=== PATIENT | male | born 1995 | race Caucasian/White ===

== ENCOUNTER 2021-08-20 21:53 | Inpatient (IN) | payer MEDICAID, SELFPAY ==
[2021-08-20 22:01] VITALS: BP 140/90; PULSE 116; RESP 18; TEMP 36.6; O2SAT 99; BMI 25.8
[2021-08-20 22:10] VITALS: BP 140/90; PULSE 116; RESP 18; TEMP 36.6; O2SAT 99; BMI 28.0
--- NOTE | 2021-08-20 22:23 | MHC.CARE ---
CARE team spoke with YVETTE, pt is an inpatient bedsearch.
[2021-08-20] MEDS: LORazepam 1 MG TABLET 2 MG PO (22:32)
[2021-08-20 22:45] LABS: COVID-19 Test Negative (Negative); IDNOW Serial# 55D5AD1C
[2021-08-20 22:46] LABS: Amphetamine Screen Urine Not Detected (Not Detect); Barbiturates, Urine Not Detected (Not Detect); Benzodiazepines Screen Urine Not Detected (Not Detect); Cannabinoid Screen Urine POSITIVE (Not Detect); Cocaine Screen Urine Not Detected (Not Detect); Fentanyl, urine Not Detected (Not Detect); Opiate Screen Urine Not Detected (Not Detect); Phencyclidine Screen Urine Not Detected (Not Detect)
[2021-08-20 22:53] LABS: MANUAL DIFF FLAG NO
[2021-08-20 22:56] LABS: Basophils Percent Auto 0.3 % (0-2); Eosinophils Absolute Auto 0.2 X10*3/uL (0.0-0.4); Eosinophils Percent Auto 2.4 % (0-4); Hematocrit 42.3 % (42-52); Hemoglobin 13.9 g/dl (14.0-18.0); Imm Gran Abs Auto 0.22 X10*3/uL (0.00-0.03); Imm Gran Pct Auto 2.2 % (0.0-0.4); Lymphocytes Absolute Auto 2.3 X10*3/uL (1.2-4.9); Mean Corpuscular HGB Conc 32.9 g/dl (31.0-36.0); Mean Corpuscular Hemoglobin 30.2 pg (27.0-33.0); Monocytes Absolute Auto 1.1 X10*3/uL (0.1-1.2); Monocytes Percent Auto 11.5 % (2-11); Neutrophils Percent Auto 60.6 % (45-73); Platelet Count 195 X10*3/uL (160-400); Red Cell Distribution Width 12.6 % (11.0-16.0); White Blood Count 9.8 X10*3/uL (4.8-10.8)
[2021-08-20] MEDS: diphenhydrAMINE HCL 25 MG TABLET 50 MG PO (23:05)
[2021-08-20 23:06] LABS: Ethanol < 10 mg/dL
[2021-08-20 23:09] LABS: Anion Gap 14 (12-20); Blood Urea Nitrogen 13 mg/dL (9-16); Carbon Dioxide 25 mmol/L (22-29); Chloride 102 mmol/L (96-108); Creatinine Clr Calc Pharmacy 128.8; Estimated Glomerular Filt Rate > 60; Glucose Random 122 mg/dL (60-115); Potassium 3.8 mmol/L (3.3-5.1); Sodium 137 mmol/L (135-145)
[2021-08-20] MEDS: HaloperidoL 5 MG TABLET 10 MG PO (23:10)
--- NOTE | 2021-08-20 23:23 | ED_ITS ---
HPI - Psych General Chief Complaint: Psychiatric Symptoms Stated Complaint: SEC 12 Time Seen by Provider: 08/20/21 22:27 Source: patient Mode of arrival: EMS History of Present Illness HPI Narrative: Patient Section 12 by PD and PH and for being delusional and made homicidal statement please add to cheese him patient is dilution and hypersexual ,oriented at times Related Data Home Medications Medication Instructions Recorded Confirmed divalproex 250 mg tablet,delayed 1 tab PO BID 08/21/21 08/21/21 release divalproex 500 mg tablet,delayed 1,000 mg PO BID 08/21/21 08/21/21 release nicotine 14 mg/24 hr daily 1 patch TOPICAL DAILY 08/21/21 08/21/21 transdermal patch olanzapine 5 mg tablet 1 tab PO BID 08/21/21 08/21/21 risperidone 1 mg tablet 1 tab PO BID 08/21/21 08/21/21 zolpidem 10 mg tablet 1 tab PO BEDTIME PRN 08/21/21 08/21/21 Allergies Allergy/AdvReac Type Severity Reaction Status Date / Time No Known Allergies Allergy Verified 08/20/21 22:18 Review of Systems Review of Systems: Yes all other systems are reviewed and are negative [facility] Social History Social History Patient Tobacco Use Status: Current everyday Tobacco user Smoked in Last 30 Days: Yes Use of substances other than those prescribed or required for medical reasons: Yes Substance Use Type: Marijuana Substance Use Frequency: Daily Any prior treatment program specific to substance use: No Advance Directives: No Physical Exam Vital Signs: Vital Signs: Last Vital Signs Temp 97.9 F 08/20/21 22:10 Pulse 116 H 08/20/21 22:10 Resp 16 08/21/21 00:33 BP 140/90 H 08/20/21 22:10 Pulse Ox 99 08/20/21 22:10 Body Mass Index 28.0 Appearance: Alert. Oriented X3. No acute distress. Eyes: PERRLA, No Nystagmus ENT: Pharynx normal. Oral Mucosa moist Neck: Normal inspection. Neck supple. CVS: Normal heart rate and rhythm. Pulses normal. Respiratory: No respiratory distress. Equal air entry bilateral, no wheezing/rales/rhonchi Abdomen: Soft and nontender. Bowel sounds are present, no mass palpable, no CVA tenderness Skin: Skin warm and dry. Normal skin color. Normal skin turgor. Extremities: No lower extremity edema. No calf tenderness psych: Delusional was loud in between Neuro: Oriented X 3. No motor deficit. No sensory deficit.No cerebellar signs , cranial nerves II-XII intact MDM - Psych MDM Narrative Medical decision making narrative: Patient for inpatient bed search fight psychotic disorder already seen in the field by [facility] Lab Data Result diagrams: 08/20/21 22:45 08/20/21 22:45 Labs: Lab Results 08/20/21 08/20/21 08/20/21 Range/Units 22:23 22:23 22:45 WBC 9.8 (4.8-10.8) X10*3/uL RBC 4.60 (4.60-5.80) X10*6/uL Hgb 13.9 L (14.0-18.0) g/dl Hct 42.3 (42-52) % MCV 92.0 (80-98) fL MCH 30.2 (27.0-33.0) pg MCHC 32.9 (31.0-36.0) g/dl RDW 12.6 (11.0-16.0) % Plt Count 195 (160-400) X10*3/uL MPV 11.0 (9.4-12.4) fL Immature Gran % (Auto) 2.2 H (0.0-0.4) % Neut % (Auto) 60.6 (45-73) % Lymph % (Auto) 23.0 (20-40) % [place] % (Auto) 11.5 H (2-11) % Eos % (Auto) 2.4 (0-4) % Baso % (Auto) 0.3 (0-2) % Lymph # (Auto) 2.3 (1.2-4.9) X10*3/uL [place] # (Auto) 1.1 (0.1-1.2) X10*3/uL Eos # (Auto) 0.2 (0.0-0.4) X10*3/uL Baso # (Auto) 0.0 (0.0-0.2) X10*3/uL Abs Immat Gran (auto) 0.22 H (0.00-0.03) X10*3/uL Absolute Neuts (auto) 6.0 (2.0-8.3) X10*3/uL Absolute Nucleated RBC 0.000 (0.0-0.012) X10*3/uL Nucleated RBC % (auto) 0.0 (0.0-0.2) /100WBC Sodium (135-145) mmol/L Potassium (3.3-5.1) mmol/L Chloride (96-108) mmol/L Carbon Dioxide (22-29) mmol/L Anion Gap (12-20) BUN (9-16) mg/dL Creatinine (0.5-1.4) mg/dL Estim Creat Clear Calc Estimated GFR Random Glucose (60-115) mg/dL Calcium (8.4-10.2) mg/dL Urine Opiates Screen Not Detected (Not Detect) Urine Fentanyl Screen Not Detected (Not Detect) Ur Barbiturates Screen Not Detected (Not Detect) Valproic Acid (50.0-100.0) mcg/mL Ur Phencyclidine Scrn Not Detected (Not Detect) Ur Amphetamines Screen Not Detected (Not Detect) U Benzodiazepines Scrn Not Detected (Not Detect) Urine Cocaine Screen Not Detected (Not Detect) U Marijuana (THC) Screen POSITIVE H (Not Detect) Ethyl Alcohol mg/dL COVID-19 (JOCELIN) Negative (Negative) COVID-19 Clin Com See Note 08/20/21 08/20/21 08/20/21 Range/Units 22:45 22:45 22:45 WBC (4.8-10.8) X10*3/uL RBC (4.60-5.80) X10*6/uL Hgb (14.0-18.0) g/dl Hct (42-52) % MCV (80-98) fL MCH (27.0-33.0) pg MCHC (31.0-36.0) g/dl RDW (11.0-16.0) % Plt Count (160-400) X10*3/uL MPV (9.4-12.4) fL Immature Gran % (Auto) (0.0-0.4) % Neut % (Auto) (45-73) % Lymph % (Auto) (20-40) % [place] % (Auto) (2-11) % Eos % (Auto) (0-4) % Baso % (Auto) (0-2) % Lymph # (Auto) (1.2-4.9) X10*3/uL [place] # (Auto) (0.1-1.2) X10*3/uL Eos # (Auto) (0.0-0.4) X10*3/uL Baso # (Auto) (0.0-0.2) X10*3/uL Abs Immat Gran (auto) (0.00-0.03) X10*3/uL Absolute Neuts (auto) (2.0-8.3) X10*3/uL Absolute Nucleated RBC (0.0-0.012) X10*3/uL Nucleated RBC % (auto) (0.0-0.2) /100WBC Sodium 137 (135-145) mmol/L Potassium 3.8 (3.3-5.1) mmol/L Chloride 102 (96-108) mmol/L Carbon Dioxide 25 (22-29) mmol/L Anion Gap 14 (12-20) BUN 13 (9-16) mg/dL Creatinine 0.97 (0.5-1.4) mg/dL Estim Creat Clear Calc 128.8 Estimated GFR > 60 Random Glucose 122 H (60-115) mg/dL Calcium 9.0 (8.4-10.2) mg/dL Urine Opiates Screen (Not Detect) Urine Fentanyl Screen (Not Detect) Ur Barbiturates Screen (Not Detect) Valproic Acid 77.6 (50.0-100.0) mcg/mL Ur Phencyclidine Scrn (Not Detect) Ur Amphetamines Screen (Not Detect) U Benzodiazepines Scrn (Not Detect) Urine Cocaine Screen (Not Detect) U Marijuana (THC) Screen (Not Detect) Ethyl Alcohol < 10 mg/dL COVID-19 (JOCELIN) (Negative) COVID-19 Clin Com Discharge Plan Discharge Clinical Impression: Psychotic affective disorder, Delusional disorder Prescriptions: No Action nicotine 14 mg/24 hr patch 24 hour 1 patch topical DAILY RF: 0 divalproex 250 mg tablet,delayed release (DR/EC) 1 tab PO BID RF: 0 olanzapine 5 mg tablet 1 tab PO BID RF: 0 divalproex 500 mg tablet,delayed release (DR/EC) 1,000 mg PO BID RF: 0 zolpidem 10 mg tablet 1 tab PO BEDTIME PRN (Reason: insomnia) RF: 0 risperidone 1 mg tablet 1 tab PO BID RF: 0
[2021-08-20] MEDS: LORazepam 2 MG/ML VIAL IM (23:29)
[2021-08-20 23:30] VITALS: RESP 20
[2021-08-20] MEDS: Haloperidol Lactate 5 MG/ML VIAL IM (23:30)
[2021-08-20 23:45] VITALS: RESP 20
[2021-08-21] VITALS (8 sets, daily range): BP systolic 139–154; BP diastolic 61–81; PULSE 82–95; RESP 16–18; TEMP 36.7–37.1; O2SAT 98–99
--- NOTE | 2021-08-21 | ECG_ITS ---
Test Reason : CLEARANCE Blood Pressure : / mmHG Vent. Rate : 084 BPM Atrial Rate : 084 BPM P-R Int : 148 ms QRS Dur : 092 ms QT Int : 360 ms P-R-T Axes : 063 090 040 degrees QTc Int : 425 ms Normal sinus rhythm Rightward axis Borderline ECG When compared with ECG of 19-JUN-2008 10:56, PREVIOUS ECG IS PRESENT No significant change was found Referred By: Connie Livingston Electronically Signed By:LORENA WALLER
--- NOTE | 2021-08-21 00:14 | MHC.CARE ---
T/W contacted [facility] to obtain additional information on pt. pt was d/c last week from [facility] (7 day stay) and re-presented today to [facility] for crisis. pt was assessed by [facility] ED psychiatrist and d/c today to a cousins house in [place]. Pt's cousin then contacted 911 due to pt exhibiting same behaviors and brought to this ED. [facility] faxed over all documentation from last admission.
[2021-08-21 01:10] LABS: Valproate 77.6 mcg/mL (50.0-100.0)
--- NOTE | 2021-08-21 05:32 | ED.PSYCH ---
HPI - Psych General Chief Complaint: Psychiatric Symptoms Stated Complaint: SEC 12 Time Seen by Provider: 08/20/21 22:27 Mode of arrival: EMS Limitations: altered mental status History of Present Illness HPI Narrative: 25-year-old male who is brought to the emergency department by EMS and police for evaluation of acute psychosis. Information was obtained from [facility] records. The patient was treated at [facility] from 08/15/2021 until 08/20/2021 on the [facility] psychiatric service for unspecified schizophrenia spectrum and other psychotic disorder, cannabis use and agitated psychosis with sissy. The patient was being treated with multiple medications at [facility] with reported improvement of his symptoms. Our ED nurse was able to determine that the patient's mother did not want the patient discharged from the psychiatric unit however the patient was able to convince his cousin and grandmother that he had improved and they help the patient sign out of the psychiatric unit. The patient was staying with his grandmother and the patient's mother was unaware of this situation. The patient's 's mother believe that the patient's signed out or eloped from [facility]. The mother called the police and the police went to the grandmother's house. the patient was evaluated by [facility] and he was placed on a Section 12 for acute delusions and homicidal ideation. The patient was then transported to our facility. On presentation the patient appears to be agitated, he would was making lab incomprehensible, screaming noises. The patient was therefore medicated with Ativan 2 mg orally with no effect. He was then treated with Haldol 10 mg orally with Benadryl orally. Again this had no effect, therefore he was treated with Haldol 5 mg IM and Ativan 2 mg IM and the patient's agitation resolved. Related Data Home Medications Medication Instructions Recorded Confirmed divalproex 250 mg tablet,delayed 1 tab PO BID 08/21/21 08/21/21 release divalproex 500 mg tablet,delayed 1,000 mg PO BID 08/21/21 08/21/21 release nicotine 14 mg/24 hr daily 1 patch TOPICAL DAILY 08/21/21 08/21/21 transdermal patch olanzapine 5 mg tablet 1 tab PO BID 08/21/21 08/21/21 risperidone 1 mg tablet 1 tab PO BID 08/21/21 08/21/21 zolpidem 10 mg tablet 1 tab PO BEDTIME PRN 08/21/21 08/21/21 Allergies Allergy/AdvReac Type Severity Reaction Status Date / Time No Known Allergies Allergy Verified 08/20/21 22:18 Review of Systems Review of Systems: Yes all other systems are reviewed and are negative [facility] Past Medical History [facility] Narrative: Past medical history: None. Past surgical history: Laparoscopic removal of foreign body of the right calf. Social history: Obtain from the [facility] records. The patient has a history of using cocaine once a week and smoking marijuana on a daily basis. He denied tobacco and alcohol use. Social History Social History Patient Tobacco Use Status: Current everyday Tobacco user Smoked in Last 30 Days: Yes Use of substances other than those prescribed or required for medical reasons: Yes Substance Use Type: Marijuana Substance Use Frequency: Daily Any prior treatment program specific to substance use: No Advance Directives: No Physical Exam Vital Signs: Vital Signs: Last Vital Signs Temp 97.9 F 08/20/21 22:10 Pulse 116 H 08/20/21 22:10 Resp 16 08/21/21 00:33 BP 140/90 H 08/20/21 22:10 Pulse Ox 99 08/20/21 22:10 Body Mass Index 28.0 Const: Other: Agitated, young male patient, patient is accompanied by multiple police officers and 2 paramedics. Patient is standing in the room and refuses to answer questions, he will randomly scream and make loud noises. He appears to be agitated and is not redirectable. HENMT: Head: Yes normal to inspection, Yes normocephalic and Yes atraumatic Ears: external ears normal General nose exam: Normal external nose present Face and sinus: Yes normal facial exam Mouth: Normal oral and palatal mucosa present Throat: Yes posterior oropharynx normal Eyes: General: appearance normal, both eyes and all related structures Pupils: Equal, round and reactive pupils present Neck: Neck: Yes normal visual inspection, Yes no lymphadenopathy, Yes trachea midline and Yes supple Chest: Chest palpation & inspection: normal inspection of the chest and normal palpation of entire chest wall Resp: Effort & Inspection: normal respiratory effort and able to speak in complete sentences Auscultation: clear to auscultation bilaterally Cardio: Rate: regular rate Rhythm: regular rhythm Heart sounds: S1 normal heart sound present, S2 normal heart sound present and no murmurs GI: Inspection: Yes normal to inspection Palpation (GI): Soft to palpation, nontender and no guarding Auscultation: normal bowel sounds : General: Yes no CVA tenderness Back/Spine/Pelvis: Back: no CVA tenderness Skin: General skin exam: no rashes or lesions noted Neuro: Cranial nerves: Yes CN's II-XII intact bilaterally and Yes Equal, round and reactive pupils present Motor exam (neuro): 5/5 motor strength present throughout Extrem: General: Yes normal to inspection Psych: Other: The patient is agitated Thought content: Normal thought content present Course Course Course Narrative: 25-year-old male who was recently admitted to [facility] on the psychiatric service from 08/15/2021 to 08/20/2021. The patient was diagnosed with unspecific schizophrenia spectrum and other psychotic disorder with rule out substance induced and cannabis use disorder. The patient's mother was concerned that the patient had eloped or was discharged inappropriately from [facility] and contacted the police. The patient was evaluated as an outpatient by [facility] and the patient was placed on a Section 12 for acute psychosis delusions and homicidal ideation. The patient was acutely agitated and presentation and required treatment with Ativan, Benadryl and Haldol to calm him down. Laboratory evaluation revealed a normal CBC and CMP. Urine tox screen was positive for marijuana. Alcohol level was below detectable limits. The patient will be kept on a Section 12 and [facility] will do a bed search on the patient. 0550: Start physician observation: The patient will require physician observation for agitation and psychosis while he is undergoing a Section 12 bed search by [facility]. Patient's outpatient medication regimen was ordered. patient is resting comfortably, his neurologic exam is nonfocal, lungs were clear heart regular rate rhythm, abdomen soft nontender, extremities were normal. MDM - Psych Lab Data Result diagrams: 08/20/21 22:45 08/20/21 22:45 Labs: Lab Results 08/20/21 08/20/21 08/20/21 Range/Units 22:23 22:23 22:45 WBC 9.8 (4.8-10.8) X10*3/uL RBC 4.60 (4.60-5.80) X10*6/uL Hgb 13.9 L (14.0-18.0) g/dl Hct 42.3 (42-52) % MCV 92.0 (80-98) fL MCH 30.2 (27.0-33.0) pg MCHC 32.9 (31.0-36.0) g/dl RDW 12.6 (11.0-16.0) % Plt Count 195 (160-400) X10*3/uL MPV 11.0 (9.4-12.4) fL Immature Gran % (Auto) 2.2 H (0.0-0.4) % Neut % (Auto) 60.6 (45-73) % Lymph % (Auto) 23.0 (20-40) % [place] % (Auto) 11.5 H (2-11) % Eos % (Auto) 2.4 (0-4) % Baso % (Auto) 0.3 (0-2) % Lymph # (Auto) 2.3 (1.2-4.9) X10*3/uL [place] # (Auto) 1.1 (0.1-1.2) X10*3/uL Eos # (Auto) 0.2 (0.0-0.4) X10*3/uL Baso # (Auto) 0.0 (0.0-0.2) X10*3/uL Abs Immat Gran (auto) 0.22 H (0.00-0.03) X10*3/uL Absolute Neuts (auto) 6.0 (2.0-8.3) X10*3/uL Absolute Nucleated RBC 0.000 (0.0-0.012) X10*3/uL Nucleated RBC % (auto) 0.0 (0.0-0.2) /100WBC Sodium (135-145) mmol/L Potassium (3.3-5.1) mmol/L Chloride (96-108) mmol/L Carbon Dioxide (22-29) mmol/L Anion Gap (12-20) BUN (9-16) mg/dL Creatinine (0.5-1.4) mg/dL Estim Creat Clear Calc Estimated GFR Random Glucose (60-115) mg/dL Calcium (8.4-10.2) mg/dL Urine Opiates Screen Not Detected (Not Detect) Urine Fentanyl Screen Not Detected (Not Detect) Ur Barbiturates Screen Not Detected (Not Detect) Valproic Acid (50.0-100.0) mcg/mL Ur Phencyclidine Scrn Not Detected (Not Detect) Ur Amphetamines Screen Not Detected (Not Detect) U Benzodiazepines Scrn Not Detected (Not Detect) Urine Cocaine Screen Not Detected (Not Detect) U Marijuana (THC) Screen POSITIVE H (Not Detect) Ethyl Alcohol mg/dL COVID-19 (JOCELIN) Negative (Negative) COVID-19 Clin Com See Note 08/20/21 08/20/21 08/20/21 Range/Units 22:45 22:45 22:45 WBC (4.8-10.8) X10*3/uL RBC (4.60-5.80) X10*6/uL Hgb (14.0-18.0) g/dl Hct (42-52) % MCV (80-98) fL MCH (27.0-33.0) pg MCHC (31.0-36.0) g/dl RDW (11.0-16.0) % Plt Count (160-400) X10*3/uL MPV (9.4-12.4) fL Immature Gran % (Auto) (0.0-0.4) % Neut % (Auto) (45-73) % Lymph % (Auto) (20-40) % [place] % (Auto) (2-11) % Eos % (Auto) (0-4) % Baso % (Auto) (0-2) % Lymph # (Auto) (1.2-4.9) X10*3/uL [place] # (Auto) (0.1-1.2) X10*3/uL Eos # (Auto) (0.0-0.4) X10*3/uL Baso # (Auto) (0.0-0.2) X10*3/uL Abs Immat Gran (auto) (0.00-0.03) X10*3/uL Absolute Neuts (auto) (2.0-8.3) X10*3/uL Absolute Nucleated RBC (0.0-0.012) X10*3/uL Nucleated RBC % (auto) (0.0-0.2) /100WBC Sodium 137 (135-145) mmol/L Potassium 3.8 (3.3-5.1) mmol/L Chloride 102 (96-108) mmol/L Carbon Dioxide 25 (22-29) mmol/L Anion Gap 14 (12-20) BUN 13 (9-16) mg/dL Creatinine 0.97 (0.5-1.4) mg/dL Estim Creat Clear Calc 128.8 Estimated GFR > 60 Random Glucose 122 H (60-115) mg/dL Calcium 9.0 (8.4-10.2) mg/dL Urine Opiates Screen (Not Detect) Urine Fentanyl Screen (Not Detect) Ur Barbiturates Screen (Not Detect) Valproic Acid 77.6 (50.0-100.0) mcg/mL Ur Phencyclidine Scrn (Not Detect) Ur Amphetamines Screen (Not Detect) U Benzodiazepines Scrn (Not Detect) Urine Cocaine Screen (Not Detect) U Marijuana (THC) Screen (Not Detect) Ethyl Alcohol < 10 mg/dL COVID-19 (JOCELIN) (Negative) COVID-19 Clin Com Discharge Plan Discharge Clinical Impression: Psychotic affective disorder, Delusional disorder Prescriptions: No Action nicotine 14 mg/24 hr patch 24 hour 1 patch topical DAILY RF: 0 divalproex 250 mg tablet,delayed release (DR/EC) 1 tab PO BID RF: 0 olanzapine 5 mg tablet 1 tab PO BID RF: 0 divalproex 500 mg tablet,delayed release (DR/EC) 1,000 mg PO BID RF: 0 zolpidem 10 mg tablet 1 tab PO BEDTIME PRN (Reason: insomnia) RF: 0 risperidone 1 mg tablet 1 tab PO BID RF: 0
--- NOTE | 2021-08-21 06:26 | PC.NURSE ---
Patient is currently in bed appears sleeping, no distress observed/reported at this time, patient's behavior is manic, delusional, loud, disruptive, and hyper-sexual. Patient was chemically restraint at 2300 with Haldol 5 mg IM and Ativan 2 mg IM, compliant with medication, med rec completed and approved. Patient got discharge from [facility] yesterday against his mother's request. VSS, appetite good, patient was seen by [facility] in the community and patient's disposition is section 12 inpatient bed search, will continue to monitor.
[2021-08-21] MEDS: Divalproex Sodium 250 MG TABLET.DR PO ×2 (07:22→20:06)
[2021-08-21] MEDS: OLANZapine 5 MG TABLET PO ×2 (07:22→10:42)
[2021-08-21] MEDS: Divalproex Sodium 500 MG TABLET.DR 1000 MG PO ×2 (07:23→20:06)
[2021-08-21] MEDS: risperiDONE 1 MG TABLET PO (07:23)
[2021-08-21] MEDS: hydrOXYzine HCL 50 MG TABLET PO (10:10)
[2021-08-21] MEDS: Nicotine Polacrilex 2 MG GUM BUCCAL (10:10)
--- NOTE | 2021-08-21 10:33 | P.CNPS_ITS ---
History of Present Illness Date of Service: 08/21/21 Chief Complaint: SEC 12 Reason for Consult: med review for sissy/psychosis HPI Narrative: danita Hoffmann 08/21 Progress Note: 25-year-old male who is brought to the emergency department by EMS and police for evaluation of acute psychosis.? Information was obtained from [facility] records.? The patient was treated at [facility] from 08/15/2021 until 08/20/2021 on the [facility] psychiatric service for unspecified schizophrenia spectrum and other psychotic disorder, cannabis use and agitated psychosis with sissy.? The patient was being treated with multiple medications at [facility] with reported improvement of his symptoms.? Our? ED nurse was able to determine that the patient's mother did not want the patient discharged from the psychiatric unit however the patient was able to convince his cousin and grandmother that he had improved and they help the patient sign out of the psychiatric unit.? The patient was staying with his grandmother and the patient's mother was unaware of this situation.? The patient's? 's mother believe that the patient's signed out or eloped from [facility].? The mother called the police and the police went to the grandmother's house. the patient was evaluated by [facility] and he was placed on a Section 12 for acute delusions and homicidal ideation. ? The patient was then transported to our facility.? On presentation the patient appears to be agitated, he would was making lab incomprehensible, screaming noises.? The patient was therefore medicated with Ativan 2 mg orally with no effect.? He was then treated with Haldol 10 mg orally with Benadryl orally.? Again this had no effect, therefore he was treated with Haldol 5 mg IM and Ativan 2 mg IM and the patient's agitation resolved. on interview with psych MD, pt was a bit tense and asking for discharge. denied having ever threatened to kill anyone. stated he wanted to get home (which he later acknowledged was his grandmother's house) and buy a motorcycle so he could enjoy the weather before winter comes. he reported he had saved up enough money for the motorcycle. he offered to pay MD money if MD could find him his own apartment. he seemed to acknowledge he has mental illness and he may be in the midst of a manic episode currently. Diagnostics Vital Signs (24Hr): Vital Signs - 24 hr 08/20/21 22:01 08/20/21 22:10 08/20/21 23:30 Temperature 97.9 F 97.9 F Pulse Rate 116 H 116 H Respiratory Rate 18 18 20 Blood Pressure 140/90 H 140/90 H Pulse Oximetry 99 99 08/20/21 23:45 08/21/21 00:00 08/21/21 00:19 Temperature Pulse Rate Respiratory Rate 20 18 18 Blood Pressure Pulse Oximetry 08/21/21 00:20 08/21/21 00:30 08/21/21 00:33 Temperature Pulse Rate Respiratory Rate 18 16 16 Blood Pressure Pulse Oximetry 08/21/21 10:01 Temperature 98.8 F Pulse Rate 95 Respiratory Rate Blood Pressure 141/81 H Pulse Oximetry 99 Body Mass Index 28.0 Labs Results: 08/20/21 22:45 08/20/21 22:45 Labs: Laboratory Results - last 48 hr 08/20/21 08/20/21 08/20/21 22:23 22:23 22:45 WBC 9.8 RBC 4.60 Hgb 13.9 L Hct 42.3 MCV 92.0 MCH 30.2 MCHC 32.9 RDW 12.6 Plt Count 195 MPV 11.0 Immature Gran % (Auto) 2.2 H Neut % (Auto) 60.6 Lymph % (Auto) 23.0 [place] % (Auto) 11.5 H Eos % (Auto) 2.4 Baso % (Auto) 0.3 Lymph # (Auto) 2.3 [place] # (Auto) 1.1 Eos # (Auto) 0.2 Baso # (Auto) 0.0 Abs Immat Gran (auto) 0.22 H Absolute Neuts (auto) 6.0 Absolute Nucleated RBC 0.000 Nucleated RBC % (auto) 0.0 Sodium Potassium Chloride Carbon Dioxide Anion Gap BUN Creatinine Estim Creat Clear Calc Estimated GFR Random Glucose Calcium Urine Opiates Screen Not Detected Urine Fentanyl Screen Not Detected Ur Barbiturates Screen Not Detected Valproic Acid Ur Phencyclidine Scrn Not Detected Ur Amphetamines Screen Not Detected U Benzodiazepines Scrn Not Detected Urine Cocaine Screen Not Detected U Marijuana (THC) Screen POSITIVE H Ethyl Alcohol COVID-19 (JOCELIN) Negative COVID-19 Clin Com See Note 1008/20/21 08/20/21 22:45 22:45 22:45 WBC RBC Hgb Hct MCV MCH MCHC RDW Plt Count MPV Immature Gran % (Auto) Neut % (Auto) Lymph % (Auto) [place] % (Auto) Eos % (Auto) Baso % (Auto) Lymph # (Auto) [place] # (Auto) Eos # (Auto) Baso # (Auto) Abs Immat Gran (auto) Absolute Neuts (auto) Absolute Nucleated RBC Nucleated RBC % (auto) Sodium 137 Potassium 3.8 Chloride 102 Carbon Dioxide 25 Anion Gap 14 BUN 13 Creatinine 0.97 Estim Creat Clear Calc 128.8 Estimated GFR > 60 Random Glucose 122 H Calcium 9.0 Urine Opiates Screen Urine Fentanyl Screen Ur Barbiturates Screen Valproic Acid 77.6 Ur Phencyclidine Scrn Ur Amphetamines Screen U Benzodiazepines Scrn Urine Cocaine Screen U Marijuana (THC) Screen Ethyl Alcohol < 10 COVID-19 (JOCELIN) COVID-19 Clin Com Mental Status Exam Mental Status Exam Narrative: dressed in scrubs, adequately groomed. facial, neck, arm tattoos. cooperative, no PMA/PMR. speech incr in amount, nml rate, loudness, tone, latency. thoughts grossly linear but not particularly logical. affect hyper- intense, non-labile, constricted. no SI/AVH expressed. denied HI. Medications Medications Current Medications Divalproex Sodium (Divalproex Sodium 500 Mg Tablet.) 1,000 mg PO BID [facility] Last Admin: 08/21/21 07:23 Dose: 1,000 mg Documented by: Divalproex Sodium (Divalproex Sodium 250 Mg Tablet.) 250 mg PO BID [facility] Last Admin: 08/21/21 07:22 Dose: 250 mg Documented by: Lorazepam (Lorazepam 1 Mg Tablet) 1 mg PO TID [facility] Nicotine (Nicotine 14 Mg Patch.Td24) 14 mg TRANSDERMA DAILY [facility] Last Admin: 08/21/21 10:10 Dose: Not Given Documented by: Olanzapine (Olanzapine 10 Mg Tablet) 10 mg PO BID [facility] Olanzapine (Olanzapine 5 Mg Tablet) 5 mg PO ONCE ONE Stop: 08/21/21 10:32 Zolpidem Tartrate (Zolpidem Tartrate 5 Mg Tablet) 10 mg PO BEDTIME PRN PRN Reason: insomnia Allergies Allergies Allergy/AdvReac Type Severity Reaction Status Date / Time No Known Allergies Allergy Verified 08/20/21 22:18 Assessment & Plan Assessment & Plan (1) Psychotic affective disorder: Status: Acute Code(s): F39 - Unspecified mood [affective] disorder Assessment and Plan: increase zyprexa from 5 BID to 10 BID. add 5 mg now dose. D/C risperidone 1 mg BID as redundant with zyprexa. start ativan 1 TID for sissy/mood. continue VPA at current dosing; level 77 at admission. recheck after 5 days of verified ingestion. admit to inpatient unit for stabilization. Greater than 50% of the session was spent on counseling and/or coordination of care
[2021-08-21] MEDS: LORazepam 1 MG TABLET PO ×3 (10:42→20:06)
[2021-08-21] MEDS: Ondansetron ODT 4 MG TAB.RAPDIS TRANSLINGU (14:08)
--- NOTE | 2021-08-21 19:24 | P.PNPSI_ITS ---
Subjective Subjective Date of Service: 08/21/21 Reason For Visit: sissy Diagnostics Vital Signs (24Hr): Vital Signs - 24 hr 08/20/21 22:01 08/20/21 22:10 08/20/21 23:30 Temperature 97.9 F 97.9 F Pulse Rate 116 H 116 H Respiratory Rate 18 18 20 Blood Pressure 140/90 H 140/90 H Pulse Oximetry 99 99 08/20/21 23:45 08/21/21 00:00 08/21/21 00:19 Temperature Pulse Rate Respiratory Rate 20 18 18 Blood Pressure Pulse Oximetry 08/21/21 00:20 08/21/21 00:30 08/21/21 00:33 Temperature Pulse Rate Respiratory Rate 18 16 16 Blood Pressure Pulse Oximetry 08/21/21 10:01 08/21/21 17:37 Temperature 98.8 F 98.1 F Pulse Rate 95 82 Respiratory Rate Blood Pressure 141/81 H 154/61 H Pulse Oximetry 99 98 Body Mass Index 28.0 Labs Results: 08/20/21 22:45 08/20/21 22:45 Labs: Laboratory Results - last 48 hr 08/20/21 08/20/21 08/20/21 22:23 22:23 22:45 WBC 9.8 RBC 4.60 Hgb 13.9 L Hct 42.3 MCV 92.0 MCH 30.2 MCHC 32.9 RDW 12.6 Plt Count 195 MPV 11.0 Immature Gran % (Auto) 2.2 H Neut % (Auto) 60.6 Lymph % (Auto) 23.0 [place] % (Auto) 11.5 H Eos % (Auto) 2.4 Baso % (Auto) 0.3 Lymph # (Auto) 2.3 [place] # (Auto) 1.1 Eos # (Auto) 0.2 Baso # (Auto) 0.0 Abs Immat Gran (auto) 0.22 H Absolute Neuts (auto) 6.0 Absolute Nucleated RBC 0.000 Nucleated RBC % (auto) 0.0 Sodium Potassium Chloride Carbon Dioxide Anion Gap BUN Creatinine Estim Creat Clear Calc Estimated GFR Random Glucose Calcium Urine Opiates Screen Not Detected Urine Fentanyl Screen Not Detected Ur Barbiturates Screen Not Detected Valproic Acid Ur Phencyclidine Scrn Not Detected Ur Amphetamines Screen Not Detected U Benzodiazepines Scrn Not Detected Urine Cocaine Screen Not Detected U Marijuana (THC) Screen POSITIVE H Ethyl Alcohol COVID-19 (JOCELIN) Negative COVID-19 Clin Com See Note 08/20/21 08/20/21 08/20/21 22:45 22:45 22:45 WBC RBC Hgb Hct MCV MCH MCHC RDW Plt Count MPV Immature Gran % (Auto) Neut % (Auto) Lymph % (Auto) [place] % (Auto) Eos % (Auto) Baso % (Auto) Lymph # (Auto) [place] # (Auto) Eos # (Auto) Baso # (Auto) Abs Immat Gran (auto) Absolute Neuts (auto) Absolute Nucleated RBC Nucleated RBC % (auto) Sodium 137 Potassium 3.8 Chloride 102 Carbon Dioxide 25 Anion Gap 14 BUN 13 Creatinine 0.97 Estim Creat Clear Calc 128.8 Estimated GFR > 60 Random Glucose 122 H Calcium 9.0 Urine Opiates Screen Urine Fentanyl Screen Ur Barbiturates Screen Valproic Acid 77.6 Ur Phencyclidine Scrn Ur Amphetamines Screen U Benzodiazepines Scrn Urine Cocaine Screen U Marijuana (THC) Screen Ethyl Alcohol < 10 COVID-19 (JOCELIN) COVID-19 Clin Com Medications Medications Current Medications Acetaminophen (Acetaminophen 325 Mg Tablet) 650 mg PO Q6H PRN PRN Reason: Headache/Pain Mild Scale (1-3) Al Hydroxide/Mg Hydroxide (Magnesium Hydrox/Alum Hydrox 30 Ml Oral.Susp) 30 ml PO Q6H PRN PRN Reason: Heartburn/Nausea Divalproex Sodium (Divalproex Sodium 500 Mg Tablet.) 1,000 mg PO BID [facility] Last Admin: 08/21/21 07:23 Dose: 1,000 mg Documented by: Divalproex Sodium (Divalproex Sodium 250 Mg Tablet.) 250 mg PO BID [facility] Last Admin: 08/21/21 07:22 Dose: 250 mg Documented by: Hydroxyzine HCl (Hydroxyzine Hcl 25 Mg Tablet) 25 mg PO BEDTIME PRN PRN Reason: Anxiety Lorazepam (Lorazepam 1 Mg Tablet) 1 mg PO TID [facility] Last Admin: 08/21/21 16:38 Dose: 1 mg Documented by: Magnesium Hydroxide (Milk Of Magnesia 30 Ml Oral.Susp) 30 ml PO DAILY PRN PRN Reason: Constipation Nicotine (Nicotine 14 Mg Patch.Td24) 14 mg TRANSDERMA DAILY [facility] Last Admin: 08/21/21 10:10 Dose: Not Given Documented by: Olanzapine (Olanzapine 10 Mg Tablet) 10 mg PO BID [facility] Trazodone HCl (Trazodone Hcl 50 Mg Tablet) 50 mg PO BEDTIME PRN PRN Reason: Insomnia Allergies Allergies Allergy/AdvReac Type Severity Reaction Status Date / Time No Known Allergies Allergy Verified 08/20/21 22:18 Assessment & Plan Assessment & Plan (1) Psychotic affective disorder: Status: Acute Code(s): F39 - Unspecified mood [affective] disorder Assessment and Plan: increase zyprexa from 5 BID to 10 BID. add 5 mg now dose. D/C risperidone 1 mg BID as redundant with zyprexa. start ativan 1 TID for sissy/mood. continue VPA at current dosing; level 77 at admission. recheck after 5 days of verified ingestion. admit to inpatient unit for stabilization. Greater than 50% of the session was spent on counseling and/or coordination of care
[2021-08-21] MEDS: Magnesium Hydrox/Alum Hydrox 30 ML ORAL.SUSP PO (19:28)
[2021-08-21] MEDS: hydrOXYzine HCL 25 MG TABLET PO (20:06)
[2021-08-21] MEDS: OLANZapine 10 MG TABLET PO (20:07)
--- NOTE | 2021-08-21 20:37 | PC.ADMIT ---
James Terry is a 25 year old single male admitted for sissy to M3 from [facility] ED on a CV after discharge from [facility] yesterday. He signed a 3 day notice on arrival to the unit. Mr Terry demonstrates no insight into the reasons for this and his other recent hospitalization. He states, I am here for racketeering and later, I am irritated that I am here because there is no reason for it. I am not sick. Mr Terry denies auditory or visual hallucinations, He denies ideation, plan or intent to harm self or others. He denies having ever harmed self or others. He appears to be a poor historian because the information he provides conflicts with that of [facility] discharge paperwork and with crisis evaluation. He is calm on admission, hypersexually inappropriate in interactions with this nurse and other staff. Speech is inarticulate and answers to assessment questions are inconsistent, vague and often off topic. He denies depression and anxiety. He reports sleep and appetite are good. He denies physical complaint.
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
[2021-08-22 06:00] VITALS: BP 147/75; PULSE 112; RESP 16; TEMP 36.2; O2SAT 99
[2021-08-22] MEDS: OLANZapine 10 MG TABLET PO ×2 (08:18→11:12)
[2021-08-22] MEDS: Divalproex Sodium 250 MG TABLET.DR PO (08:18)
[2021-08-22] MEDS: LORazepam 1 MG TABLET PO ×3 (08:19→20:30)
[2021-08-22] MEDS: Divalproex Sodium 500 MG TABLET.DR 1000 MG PO (08:19)
[2021-08-22] MEDS: hydrOXYzine HCL 25 MG TABLET PO (09:23)
[2021-08-22] MEDS: Nicotine Polacrilex 2 MG GUM BUCCAL ×4 (09:23→18:04)
[2021-08-22] MEDS: HaloperidoL 5 MG TABLET PO ×2 (11:12→14:58)
[2021-08-22] MEDS: chlorproMAZINE HCl 100 MG TABLET PO (13:25)
[2021-08-22] MEDS: LORazepam 1 MG TABLET 2 MG PO (13:25)
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
--- NOTE | 2021-08-22 15:21 | PM.EVENT ---
Event Note Date of Service: 08/22/21 Event Note: Asked to see the patient for L ear ? pain. S Pt seen and examined on M3. He DENIES any ear pain to me. He wants me to clean his ear out. He denies any hearing loss or pain. O Ear - L ear + for moderate cerumen, unable to visualize his tympanic membrane; R ear - minimal wax, able to visualize tympanic membranes -- without erythema or signs of effusion A/P 25 yo with probable moderate cerumen in the L Can give trial of Debrox for a few days (order placed)
[2021-08-22 18:00] VITALS: BP 112/58; PULSE 101; RESP 16; TEMP 36.7; O2SAT 98
[2021-08-22] MEDS: OLANZapine 10 MG TABLET 20 MG PO (20:30)
[2021-08-22] MEDS: Divalproex Sodium 500 MG TABLET.DR 2000 MG PO (20:30)
[2021-08-22] MEDS: Carbamide Peroxide 6.5% Otic 15 ML DRPBTL 5 DROP EAR-LEFT (21:07)
[2021-08-23 06:00] VITALS: BP 126/68; PULSE 88; RESP 16; TEMP 36.4; O2SAT 98
[2021-08-23 07:46] LABS: Hematocrit 40.6 % (42-52); Hemoglobin 13.1 g/dl (14.0-18.0); Mean Corpuscular HGB Conc 32.3 g/dl (31.0-36.0); Mean Corpuscular Hemoglobin 30.3 pg (27.0-33.0); Mean Corpuscular Volume 93.8 fL (80-98); Mean Platelet Volume 10.4 fL (9.4-12.4); Platelet Count 200 X10*3/uL (160-400); Red Blood Count 4.33 X10*6/uL (4.60-5.80); Red Cell Distribution Width 13.1 % (11.0-16.0); White Blood Count 7.2 X10*3/uL (4.8-10.8)
[2021-08-23] MEDS: Divalproex Sodium 500 MG TABLET.DR 1000 MG PO (08:10)
[2021-08-23] MEDS: OLANZapine 10 MG TABLET 20 MG PO ×2 (08:10→20:13)
[2021-08-23] MEDS: Nicotine Polacrilex 2 MG GUM BUCCAL ×3 (08:11→18:01)
[2021-08-23] MEDS: HaloperidoL 5 MG TABLET PO ×4 (08:11→20:10)
[2021-08-23] MEDS: LORazepam 1 MG TABLET PO ×3 (08:11→20:13)
[2021-08-23 08:21] LABS: Band Neutrophils Percent 1 % (3-5); Eosinophils Absolute Manual 0.5 X10*3/UL (0.0-0.8); Eosinophils Percent Manual 7 % (0-4); Lymphocytes Absolute Manual 1.8 X10*3/uL (0.6-4.8); Lymphocytes Percent Manual 25 % (20-40); Metamyelocytes Absolute 0.1 X10*3/uL; Metamyelocytes Percent 2 %; Monocytes Absolute Manual 0.2 X10*3/uL (0.0-1.2); Monocytes Percent Manual 3 % (2-11); Neutrophils Absolute Manual 4.5 X10*3/uL (2.2-7.9); Neutrophils Percent Manual 62 % (45-73)
[2021-08-23 08:22] LABS: Alanine Aminotransferase 110 U/L (0-40); Albumin Level 3.5 g/dL (3.5-5.0); Alkaline Phosphatase 57 U/L (39-117); Anion Gap 13 (12-20); Aspartate Amino Transferase 67 U/L (5-37); Bilirubin Total 0.2 mg/dL (0.0-1.0); Blood Urea Nitrogen 13 mg/dL (9-16); Calcium 8.3 mg/dL (8.4-10.2); Carbon Dioxide 31 mmol/L (22-29); Chloride 102 mmol/L (96-108); Creatinine Clr Calc Pharmacy 162.2; Estimated Glomerular Filt Rate > 60; Glucose Random 85 mg/dL (60-115); Hypochromasia 1+ (5-14) /OIF; Platelet Estimate NORMAL (NORMAL); Platelet Morphology Comment NORMAL; Polychromasia 1+ (0-2) /OIF; Potassium 4.5 mmol/L (3.3-5.1); RBC Morphology NOTED; Sodium 141 mmol/L (135-145); Total Protein 5.8 g/dL (6.5-8.0)
[2021-08-23] MEDS: Carbamide Peroxide 6.5% Otic 15 ML DRPBTL 5 DROP EAR-LEFT (09:40)
[2021-08-23] MEDS: LORazepam 1 MG TABLET 2 MG PO (11:49)
[2021-08-23] MEDS: OLANZapine 10 MG TABLET PO (11:49)
[2021-08-23 18:00] VITALS: BP 126/69; PULSE 96; RESP 6; TEMP 36.2; O2SAT 97
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
[2021-08-23] MEDS: hydrOXYzine HCL 25 MG TABLET PO (20:13)
[2021-08-23] MEDS: Divalproex Sodium 500 MG TABLET.DR 2000 MG PO (20:14)
[2021-08-24 06:00] VITALS: BP 127/63; PULSE 82; RESP 16; TEMP 36.2; O2SAT 98
[2021-08-24] MEDS: Nicotine Polacrilex 2 MG GUM BUCCAL ×5 (07:47→19:37)
[2021-08-24] MEDS: OLANZapine 10 MG TABLET 20 MG PO ×2 (08:51→20:04)
[2021-08-24] MEDS: HaloperidoL 5 MG TABLET PO ×2 (08:52→14:56)
[2021-08-24] MEDS: LORazepam 1 MG TABLET PO ×3 (08:52→20:04)
[2021-08-24] MEDS: Divalproex Sodium 500 MG TABLET.DR 1000 MG PO (08:52)
[2021-08-24] MEDS: Carbamide Peroxide 6.5% Otic 15 ML DRPBTL 5 DROP EAR-LEFT (08:54)
--- NOTE | 2021-08-24 10:40 | P.PNPSI_ITS ---
Subjective Subjective Date of Service: 08/24/21 Reason For Visit: sissy Interim History: James appears calmer today, less agitated and angry however continues with confusion and focus on discharge as his three day notice expires 08/26/21. He has required several prn medications over the past day and it appears he has a misunderstanding regarding his discharge from [facility] and admission on the same day to [facility], telling this medical technical writer that [facility] made an error and he was just supposed to go home, not come for another admission. Medication Compliance: Yes Side effects from medications: No Review of Systems Acute medical concerns: No Medical Review of Systems: unchanged Review of Systems Reports behavioral changes Psychiatric: Reports anxiety, Reports behavioral changes, Reports difficulty concentrating, Reports auditory hallucinations, Reports irritability, Reports mood swings, Reports paranoia and Reports homicidal ideation Mental Status Exam Mental Status Exam Patient Appearance: Appropriate Patient Orientation: Person, Place and Situation Level of Consciousness: Alert Patient Behavior: Guarded, Talkative, Posturing, Suspicious, Hypersexual, Aggressive, Restless, Belligerent, Verbal Threats, Anxious, Fearful, Resistive to Care, Avoidant, Distractible, Good Eye Contact and Impulsive Mood Description: Labile Affect Description: Labile Patient Cognition Impaired: No Ability to Follow Directions: Fair Speech Pattern: Perseverating, Spontaneous Speech, Cofabulation and Pressured Memory Description: Remote Impaired and Episodic Impaired Delusions: Being Controlled, Paranoid Ideation and Present Thought Process: Illogical, Distracted, Rumination and Evasive Thought Content: positive for [place], positive for Circumstantial and positive for Preoccupation Depressive Symptoms: Increased Irritability and Difficulty Concentrating Abnormal Motor Activity Signs and Symptoms: Aggression, Agitation, Hyperactivity and Restlessness Judgement: Poor Diagnostics Vital Signs (24Hr): Vital Signs - 24 hr 08/23/21 18:00 08/24/21 06:00 Temperature 97.1 F 97.2 F Pulse Rate 96 82 Respiratory Rate 6 L 16 Blood Pressure 126/69 127/63 Pulse Oximetry 97 98 Body Mass Index 28.0 Labs Results: 08/23/21 07:13 08/23/21 07:13 Labs: Laboratory Results - last 48 hr 08/23/21 08/23/21 07:13 07:13 WBC 7.2 RBC 4.33 L Hgb 13.1 L Hct 40.6 L MCV 93.8 MCH 30.3 MCHC 32.3 RDW 13.1 Plt Count 200 MPV 10.4 Immature Gran % (Auto) Cancelled Neut % (Auto) Cancelled Lymph % (Auto) Cancelled [place] % (Auto) Cancelled Eos % (Auto) Cancelled Baso % (Auto) Cancelled Lymph # (Auto) Cancelled [place] # (Auto) Cancelled Eos # (Auto) Cancelled Baso # (Auto) Cancelled Abs Immat Gran (auto) Cancelled Absolute Neuts (auto) Cancelled Absolute Nucleated RBC 0.000 Nucleated RBC % (auto) 0.0 Neutrophils % (Manual) 62 Band Neutrophils % 1 L Lymphocytes % (Manual) 25 Monocytes % (Manual) 3 Eosinophils % (Manual) 7 H Metamyelocytes % 2 Abs Neuts (Manual) 4.5 Lymphocytes # (Manual) 1.8 Monocytes # (Manual) 0.2 Eosinophils # (Manual) 0.5 Metamyelocytes # 0.1 Platelet Estimate NORMAL Plt Morphology Comment NORMAL RBC Morphology NOTED Polychromasia 1+ (0-2) Hypochromasia 1+ (5-14) Sodium 141 Potassium 4.5 Chloride 102 Carbon Dioxide 31 H Anion Gap 13 BUN 13 Creatinine 0.77 Estim Creat Clear Calc 162.2 Estimated GFR > 60 Random Glucose 85 Calcium 8.3 L D Total Bilirubin 0.2 AST 67 H ALT 110 H Alkaline Phosphatase 57 Total Protein 5.8 L Albumin 3.5 Medications Medications Current Medications Acetaminophen (Acetaminophen 325 Mg Tablet) 650 mg PO Q6H PRN PRN Reason: Headache/Pain Mild Scale (1-3) Al Hydroxide/Mg Hydroxide (Magnesium Hydrox/Alum Hydrox 30 Ml Oral.Susp) 30 ml PO Q6H PRN PRN Reason: Heartburn/Nausea Last Admin: 08/21/21 19:28 Dose: 30 ml Documented by: Carbamide Peroxide (Carbamide Peroxide 6.5% Otic 15 Ml Drpbtl) 5 drop EAR-LEFT BID [facility] Stop: 08/26/21 15:19 Last Admin: 08/24/21 08:54 Dose: 5 drop Documented by: Divalproex Sodium (Divalproex Sodium 500 Mg Tablet.) 1,000 mg PO DAILY [facility] Last Admin: 08/24/21 08:52 Dose: 1,000 mg Documented by: Divalproex Sodium (Divalproex Sodium 500 Mg Tablet.) 2,000 mg PO BEDTIME [facility] Last Admin: 08/23/21 20:14 Dose: 2,000 mg Documented by: Haloperidol (Haloperidol 5 Mg Tablet) 5 mg PO Q4H PRN PRN Reason: agitation/psychosis Last Admin: 08/24/21 08:52 Dose: 5 mg Documented by: Hydroxyzine HCl (Hydroxyzine Hcl 25 Mg Tablet) 25 mg PO BEDTIME PRN PRN Reason: Anxiety Last Admin: 08/23/21 20:13 Dose: 25 mg Documented by: Lorazepam (Lorazepam 1 Mg Tablet) 1 mg PO TID [facility] Last Admin: 08/24/21 08:52 Dose: 1 mg Documented by: Magnesium Hydroxide (Milk Of Magnesia 30 Ml Oral.Susp) 30 ml PO DAILY PRN PRN Reason: Constipation Nicotine (Nicotine 14 Mg Patch.Td24) 14 mg TRANSDERMA DAILY [facility] Last Admin: 08/24/21 10:36 Dose: Not Given Documented by: Nicotine Polacrilex (Nicotine Polacrilex 2 Mg Gum) 2 mg BUCCAL Q2H PRN PRN Reason: Nicotine Cravings Last Admin: 08/24/21 09:57 Dose: 2 mg Documented by: Olanzapine (Olanzapine 10 Mg Tablet) 20 mg PO BID [facility] Last Admin: 08/24/21 08:51 Dose: 20 mg Documented by: Ondansetron HCl (Ondansetron Odt 4 Mg Tab.Rapdis) 4 mg TRANSLINGU Q6H PRN PRN Reason: nausea Trazodone HCl (Trazodone Hcl 100 Mg Tablet) 100 mg PO BEDTIME PRN PRN Reason: Insomnia Allergies Allergies Allergy/AdvReac Type Severity Reaction Status Date / Time No Known Allergies Allergy Verified 08/20/21 22:18 Assessment & Plan Assessment & Plan (1) Schizoaffective disorder, bipolar type: Status: Acute Code(s): F25.0 - Schizoaffective disorder, bipolar type Assessment and Plan: Pt is a 25 y.o. Male who has a working diagnosis of schizoaffective disorder, bipolar type. Recent prolonged [facility] admission for agitation, psychosis, sissy. Discharged from [facility] 08/13 and represented the following day on a section 12 for hypersexuality and disorganized behavior. Presents as hypersexual, disorganized thinking. Denies any head trauma.? PLAN 1. Increase depakote 1000 mg po daily and 2000mg po qhs 2. Increase Olanzapine to 20mg po BID 3. Continue PRN medications 4. Obtain collateral information 5. Aftercare planning Monitor response to medications. Monitor for safety in the milieu. 08/23/21: Continue current plan of care Olanzapine 10 mg prn given today for increase in agitation and threatening behaviors. 08/24/21: Coverage: Continue current plan of care. Greater than 50% of the session was spent on counseling and/or coordination of care Informed Consent: does not understand Reason for contiued inpatient stay Substantial Risk for: harm to self, harm to others, inability to function and rapid decompensation
[2021-08-24] MEDS: traZODone HCL 100 MG TABLET PO (20:04)
[2021-08-24] MEDS: hydrOXYzine HCL 25 MG TABLET PO (20:04)
[2021-08-24] MEDS: Divalproex Sodium 500 MG TABLET.DR 2000 MG PO (20:04)
[2021-08-25 08:15] VITALS: BP 104/77; PULSE 114; RESP 16; TEMP 37.1; O2SAT 98
[2021-08-25] MEDS: LORazepam 1 MG TABLET PO ×3 (08:18→20:36)
[2021-08-25] MEDS: Divalproex Sodium 500 MG TABLET.DR 1000 MG PO (08:18)
[2021-08-25] MEDS: OLANZapine 10 MG TABLET 20 MG PO ×2 (08:18→20:36)
[2021-08-25] MEDS: Acetaminophen 325 MG TABLET 650 MG PO (08:24)
[2021-08-25 09:23] LABS: Valproate 78.2 mcg/mL (50.0-100.0)
[2021-08-25] MEDS: Nicotine Polacrilex 2 MG GUM BUCCAL ×4 (11:27→18:30)
[2021-08-25] MEDS: HaloperidoL 5 MG TABLET PO ×2 (13:34→18:29)
--- NOTE | 2021-08-25 15:52 | HO.PSYCHPN ---
Subjective Subjective Date of Service: 08/25/21 Reason For Visit: sissy Subjective Notes: 3 Day Interim History: Three day notice to 08/27/21. Valproate level today 78.2 Pt focused on leaving-asking to leave the unit for visits, fresh air breaks but with consistent messages of leaving. As a result, pt is restricted to on unit activity at this time. Medication Compliance: Yes Side effects from medications: No Review of Systems Acute medical concerns: No Medical Review of Systems: unchanged Review of Systems Review of Systems Yes all other systems are reviewed and are negative Reports behavioral changes Psychiatric: Reports behavioral changes, Reports irritability, Reports mood swings, Reports paranoia, Reports suicidal ideation (denies) and Reports other (threatening behavior earlier in the weekend) Mental Status Exam Mental Status Exam Patient Appearance: Appropriate Patient Orientation: Person, Place and Situation Level of Consciousness: Alert Patient Behavior: Guarded, Talkative, Posturing, Suspicious, Hypersexual, Aggressive, Restless, Belligerent, Verbal Threats, Anxious, Fearful, Resistive to Care, Avoidant, Distractible, Good Eye Contact and Impulsive Mood Description: Labile Affect Description: Labile Patient Cognition Impaired: No Ability to Follow Directions: Fair Speech Pattern: Perseverating, Spontaneous Speech, Cofabulation and Pressured Memory Description: Remote Impaired and Episodic Impaired Delusions: Being Controlled, Paranoid Ideation and Present Thought Process: Illogical, Distracted, Rumination and Evasive Thought Content: positive for [place], positive for Circumstantial and positive for Preoccupation Depressive Symptoms: Increased Irritability and Difficulty Concentrating Abnormal Motor Activity Signs and Symptoms: Aggression, Agitation, Hyperactivity and Restlessness Judgement: Poor Diagnostics Vital Signs (24Hr): Vital Signs - 24 hr 08/25/21 08:15 Temperature 98.7 F Pulse Rate 114 H Respiratory Rate 16 Blood Pressure 104/77 Pulse Oximetry 98 Body Mass Index 28.0 Labs Results: 08/23/21 07:13 08/23/21 07:13 Labs: Laboratory Results - last 48 hr 08/25/21 08:17 Valproic Acid 78.2 Medications Medications Current Medications Acetaminophen (Acetaminophen 325 Mg Tablet) 650 mg PO Q6H PRN PRN Reason: Headache/Pain Mild Scale (1-3) Last Admin: 08/25/21 08:24 Dose: 650 mg Documented by: Al Hydroxide/Mg Hydroxide (Magnesium Hydrox/Alum Hydrox 30 Ml Oral.Susp) 30 ml PO Q6H PRN PRN Reason: Heartburn/Nausea Last Admin: 08/21/21 19:28 Dose: 30 ml Documented by: Carbamide Peroxide (Carbamide Peroxide 6.5% Otic 15 Ml Drpbtl) 5 drop EAR-LEFT BID [facility] Stop: 08/26/21 15:19 Last Admin: 08/25/21 08:26 Dose: Not Given Documented by: Divalproex Sodium (Divalproex Sodium 500 Mg Tablet.) 1,000 mg PO DAILY [facility] Last Admin: 08/25/21 08:18 Dose: 1,000 mg Documented by: Divalproex Sodium (Divalproex Sodium 500 Mg Tablet.) 2,000 mg PO BEDTIME [facility] Last Admin: 08/24/21 20:04 Dose: 2,000 mg Documented by: Haloperidol (Haloperidol 5 Mg Tablet) 5 mg PO Q4H PRN PRN Reason: agitation/psychosis Last Admin: 08/25/21 13:34 Dose: 5 mg Documented by: Hydroxyzine HCl (Hydroxyzine Hcl 25 Mg Tablet) 25 mg PO BEDTIME PRN PRN Reason: Anxiety Last Admin: 08/24/21 20:04 Dose: 25 mg Documented by: Lorazepam (Lorazepam 1 Mg Tablet) 1 mg PO TID [facility] Last Admin: 08/25/21 15:24 Dose: 1 mg Documented by: Magnesium Hydroxide (Milk Of Magnesia 30 Ml Oral.Susp) 30 ml PO DAILY PRN PRN Reason: Constipation Nicotine (Nicotine 14 Mg Patch.Td24) 14 mg TRANSDERMA DAILY [facility] Last Admin: 08/25/21 08:27 Dose: Not Given Documented by: Nicotine Polacrilex (Nicotine Polacrilex 2 Mg Gum) 2 mg BUCCAL Q2H PRN PRN Reason: Nicotine Cravings Last Admin: 08/25/21 15:25 Dose: 2 mg Documented by: Olanzapine (Olanzapine 10 Mg Tablet) 20 mg PO BID [facility] Last Admin: 08/25/21 08:18 Dose: 20 mg Documented by: Ondansetron HCl (Ondansetron Odt 4 Mg Tab.Rapdis) 4 mg TRANSLINGU Q6H PRN PRN Reason: nausea Trazodone HCl (Trazodone Hcl 100 Mg Tablet) 100 mg PO BEDTIME PRN PRN Reason: Insomnia Last Admin: 08/24/21 20:04 Dose: 100 mg Documented by: Allergies Allergies Allergy/AdvReac Type Severity Reaction Status Date / Time No Known Allergies Allergy Verified 08/20/21 22:18 Assessment & Plan Assessment & Plan (1) Schizoaffective disorder, bipolar type: Status: Acute Code(s): F25.0 - Schizoaffective disorder, bipolar type Assessment and Plan: Pt is a 25 y.o. Male who has a working diagnosis of schizoaffective disorder, bipolar type. Recent prolonged [facility] admission for agitation, psychosis, sissy. Discharged from [facility] 08/13 and represented the following day on a section 12 for hypersexuality and disorganized behavior. Presents as hypersexual, disorganized thinking. Denies any head trauma.? PLAN 1. Increase depakote 1000 mg po daily and 2000mg po qhs 2. Increase Olanzapine to 20mg po BID 3. Continue PRN medications 4. Obtain collateral information 5. Aftercare planning Monitor response to medications. Monitor for safety in the milieu. 08/23/21: Continue current plan of care Olanzapine 10 mg prn given today for increase in agitation and threatening behaviors. 08/24/21: Coverage: Continue current plan of care. 08/25/21: Coverage: Continue current plan of care. Greater than 50% of the session was spent on counseling and/or coordination of care Informed Consent: further education needed Reason for contiued inpatient stay Substantial Risk for: harm to self, harm to others, inability to function and rapid decompensation
[2021-08-25 18:00] VITALS: BP 141/72; PULSE 89; RESP 18; TEMP 36.6; O2SAT 98
[2021-08-25] MEDS: Divalproex Sodium 500 MG TABLET.DR 2000 MG PO (20:36)
[2021-08-26 08:08] VITALS: BP 140/70; PULSE 96; RESP 16; TEMP 36.5; O2SAT 98
[2021-08-26] MEDS: Divalproex Sodium 500 MG TABLET.DR 1000 MG PO (09:02)
[2021-08-26] MEDS: OLANZapine 10 MG TABLET 20 MG PO ×2 (09:03→20:21)
[2021-08-26] MEDS: LORazepam 1 MG TABLET PO ×2 (09:03→21:30)
[2021-08-26] MEDS: Nicotine Polacrilex 2 MG GUM BUCCAL ×4 (09:22→18:08)
[2021-08-26] MEDS: HaloperidoL 5 MG TABLET PO ×3 (10:21→18:35)
--- NOTE | 2021-08-26 14:34 | P.PNPSI_ITS ---
Subjective Subjective Date of Service: 08/26/21 Reason For Visit: sissy Interim History: per staff, no notable events yesterday. requesting he come off of Q5 min checks as his hypersexual behavior of asking persons on the unit if they have boyfriends has stopped. on interview with , pt requesting discharge. MD declining to discharge pt today, stating it will have to wait until tomorrow. pt is somewhat histrionic, covering his face, saying he CAN'T stay here another day, lying down on the floor. he then sites blocking egress from the room and says he will keep MD in room until he is discharged, so you can't go home to your shante. MD informs pt this behavior will not lead to an earlier discharge for him. pt moves furniture to barricade the door. MD requests staff assistance via text message, after several minutes staff arrive and force the door open, pt relents in his effort. otherwise pt denied any psychiatric symptoms but stated he had to get home to do a lot of things, such as get a motorcycle, play videogames. he appeared to have a lot of internal pr essure to get home and a very low frustration tolerance. Mental Status Exam Mental Status Exam Narrative: Pt is A&O. In street attire, tattoos, good hygiene, normal body habitus. good eye contact- intense at times. No Tics or Tremors. No abnormal involuntary movements. difficult to engage in conversation. increased amount of speech, spontaneous with regular rate and rhythm, normal volume and prosody. No prolonged speech latency or dysarthria. Mood is euthymic, affect is inappropriate, laughing and smiling incongruently to his very strong internal pressure and expressed desire to leave the hospital. Denies SI/SIB/HI/AVH. Thoughts are perseverative. No known cognitive or memory impairment. Insight/ Judgment limited/ poor. Diagnostics Vital Signs (24Hr): Vital Signs - 24 hr 08/25/21 18:00 08/26/21 08:08 Temperature 97.9 F 97.7 F Pulse Rate 89 96 Respiratory Rate 18 16 Blood Pressure 141/72 H 140/70 H Pulse Oximetry 98 98 Body Mass Index 28.0 Labs Results: 08/23/21 07:13 08/23/21 07:13 Labs: Laboratory Results - last 48 hr 08/25/21 08:17 Valproic Acid 78.2 Medications Medications Current Medications Acetaminophen (Acetaminophen 325 Mg Tablet) 650 mg PO Q6H PRN PRN Reason: Headache/Pain Mild Scale (1-3) Last Admin: 08/25/21 08:24 Dose: 650 mg Documented by: Al Hydroxide/Mg Hydroxide (Magnesium Hydrox/Alum Hydrox 30 Ml Oral.Susp) 30 ml PO Q6H PRN PRN Reason: Heartburn/Nausea Last Admin: 08/21/21 19:28 Dose: 30 ml Documented by: Carbamide Peroxide (Carbamide Peroxide 6.5% Otic 15 Ml Drpbtl) 5 drop EAR-LEFT BID [facility] Stop: 08/26/21 15:19 Last Admin: 08/26/21 10:25 Dose: Not Given Documented by: Divalproex Sodium (Divalproex Sodium 500 Mg Tablet.) 1,000 mg PO DAILY [facility] Last Admin: 08/26/21 09:02 Dose: 1,000 mg Documented by: Divalproex Sodium (Divalproex Sodium 500 Mg Tablet.) 2,000 mg PO BEDTIME [facility] Last Admin: 08/25/21 20:36 Dose: 2,000 mg Documented by: Haloperidol (Haloperidol 5 Mg Tablet) 5 mg PO Q4H PRN PRN Reason: agitation/psychosis Last Admin: 08/26/21 13:59 Dose: 5 mg Documented by: Hydroxyzine HCl (Hydroxyzine Hcl 25 Mg Tablet) 25 mg PO BEDTIME PRN PRN Reason: Anxiety Last Admin: 08/24/21 20:04 Dose: 25 mg Documented by: Magnesium Hydroxide (Milk Of Magnesia 30 Ml Oral.Susp) 30 ml PO DAILY PRN PRN Reason: Constipation Nicotine (Nicotine 14 Mg Patch.Td24) 14 mg TRANSDERMA DAILY [facility] Last Admin: 08/26/21 09:01 Dose: Not Given Documented by: Nicotine Polacrilex (Nicotine Polacrilex 2 Mg Gum) 2 mg BUCCAL Q2H PRN PRN Reason: Nicotine Cravings Last Admin: 08/26/21 13:57 Dose: 2 mg Documented by: Olanzapine (Olanzapine 10 Mg Tablet) 20 mg PO BID [facility] Last Admin: 08/26/21 09:03 Dose: 20 mg Documented by: Ondansetron HCl (Ondansetron Odt 4 Mg Tab.Rapdis) 4 mg TRANSLINGU Q6H PRN PRN Reason: nausea Trazodone HCl (Trazodone Hcl 100 Mg Tablet) 100 mg PO BEDTIME PRN PRN Reason: Insomnia Last Admin: 08/24/21 20:04 Dose: 100 mg Documented by: Allergies Allergies Allergy/AdvReac Type Severity Reaction Status Date / Time No Known Allergies Allergy Verified 08/20/21 22:18 Assessment & Plan Assessment & Plan (1) Schizoaffective disorder, bipolar type: Status: Acute Code(s): F25.0 - Schizoaffective disorder, bipolar type Assessment and Plan: Pt is a 25 y.o. Male who has a working diagnosis of schizoaffective disorder, bipolar type. Recent prolonged [facility] admission for agitation, psychosis, sissy. Discharged from [facility] 08/13 and represented the following day on a section 12 for hypersexuality and disorganized behavior. Presents as hypersexual, disorganized thinking. Denies any head trauma.? PLAN 1. Increased depakote 2000mg po qhs to 1000/1999. 2. Increased Olanzapine to 20mg po BID 3. Continue PRN medications 4. Obtain collateral information 5. Aftercare planning Monitor response to medications. Monitor for safety in the milieu. 08/23/21: Continue current plan of care Olanzapine 10 mg prn given today for increase in agitation and threatening behaviors. 08/24/21: Coverage: Continue current plan of care. 08/25/21: Coverage: Continue current plan of care. Greater than 50% of the session was spent on counseling and/or coordination of care Reason for contiued inpatient stay Substantial Risk for: harm to self, harm to others, inability to function and rapid decompensation
[2021-08-26 19:50] VITALS: BP 143/60; PULSE 81; RESP 18; TEMP 37.1; O2SAT 98
[2021-08-26] MEDS: Divalproex Sodium 500 MG TABLET.DR 2000 MG PO (20:21)
[2021-08-26] MEDS: traZODone HCL 100 MG TABLET PO (20:24)
[2021-08-27 08:00] VITALS: BP 125/60; PULSE 82; RESP 16; TEMP 36.8; O2SAT 98
[2021-08-27] MEDS: LORazepam 1 MG TABLET PO (08:24)
[2021-08-27] MEDS: Divalproex Sodium 500 MG TABLET.DR 1000 MG PO (08:24)
[2021-08-27] MEDS: OLANZapine 10 MG TABLET 20 MG PO (08:24)
--- NOTE | 2021-08-27 10:26 | PM.PSYDC ---
DS: Providers Provider Date of Service: 08/27/21 Date of admission: 08/21/21 17:04 Primary care physician: None Physician DS: Diagnosis Discharge Diagnosis (1) Schizoaffective disorder, bipolar type: Status: Acute DS: Medications Discharge Medications Home Medications: Previous Rx's Medication Instructions Recorded divalproex 500 mg tablet,delayed 1,000 mg PO DAILY 30 Days #60 tab 08/27/21 release divalproex 500 mg tablet,delayed 2,000 mg PO BEDTIME 30 Days #120 08/27/21 release tab nicotine (polacrilex) 2 mg gum 2 mg BUCCAL Q2H PRN 30 Days #60 ea 08/27/21 olanzapine 10 mg tablet 20 mg PO BID 30 Days #120 tab 08/27/21 Mental Status Exam Mental Status Exam Narrative: Pt is somnolent. In street attire, tattoos, good hygiene, normal body habitus. good eye contact. No Tics or Tremors. No abnormal involuntary movements. difficult to engage in conversation. increased amount of speech, spontaneous with regular rate and rhythm, normal volume and prosody. No prolonged speech latency or dysarthria. Mood is euthymic, affect is appropriate. Denies SI/SIB/HI/AVH. Thoughts are linear and logical for brief interview. No known cognitive or memory impairment. Insight/ Judgment limited/ poor. Data Data Completed and Pending Completed studies during hospitalization [Text1]: 08/20/21 08/20/21 08/20/21 22:23 22:23 22:45 WBC 9.8 RBC 4.60 Hgb 13.9 L Hct 42.3 MCV 92.0 MCH 30.2 MCHC 32.9 RDW 12.6 Plt Count 195 MPV 11.0 Immature Gran % (Auto) 2.2 H Neut % (Auto) 60.6 Lymph % (Auto) 23.0 [place] % (Auto) 11.5 H Eos % (Auto) 2.4 Baso % (Auto) 0.3 Lymph # (Auto) 2.3 [place] # (Auto) 1.1 Eos # (Auto) 0.2 Baso # (Auto) 0.0 Abs Immat Gran (auto) 0.22 H Absolute Neuts (auto) 6.0 Absolute Nucleated RBC 0.000 Nucleated RBC % (auto) 0.0 Neutrophils % (Manual) Band Neutrophils % Lymphocytes % (Manual) Monocytes % (Manual) Eosinophils % (Manual) Metamyelocytes % Abs Neuts (Manual) Lymphocytes # (Manual) Monocytes # (Manual) Eosinophils # (Manual) Metamyelocytes # Platelet Estimate Plt Morphology Comment RBC Morphology Polychromasia Hypochromasia Sodium Potassium Chloride Carbon Dioxide Anion Gap BUN Creatinine Estim Creat Clear Calc Estimated GFR Random Glucose Calcium Total Bilirubin AST ALT Alkaline Phosphatase Total Protein Albumin Urine Opiates Screen Not Detected Urine Fentanyl Screen Not Detected Ur Barbiturates Screen Not Detected Valproic Acid Ur Phencyclidine Scrn Not Detected Ur Amphetamines Screen Not Detected U Benzodiazepines Scrn Not Detected Urine Cocaine Screen Not Detected U Marijuana (THC) Screen POSITIVE H Ethyl Alcohol COVID-19 (JOCELIN) Negative COVID-19 [employer] See Note 08/20/21 08/20/21 08/20/21 22:45 22:45 22:45 WBC RBC Hgb Hct MCV MCH MCHC RDW Plt Count MPV Immature Gran % (Auto) Neut % (Auto) Lymph % (Auto) [place] % (Auto) Eos % (Auto) Baso % (Auto) Lymph # (Auto) [place] # (Auto) Eos # (Auto) Baso # (Auto) Abs Immat Gran (auto) Absolute Neuts (auto) Absolute Nucleated RBC Nucleated RBC % (auto) Neutrophils % (Manual) Band Neutrophils % Lymphocytes % (Manual) Monocytes % (Manual) Eosinophils % (Manual) Metamyelocytes % Abs Neuts (Manual) Lymphocytes # (Manual) Monocytes # (Manual) Eosinophils # (Manual) Metamyelocytes # Platelet Estimate Plt Morphology Comment RBC Morphology Polychromasia Hypochromasia Sodium 137 Potassium 3.8 Chloride 102 Carbon Dioxide 25 Anion Gap 14 BUN 13 Creatinine 0.97 Estim Creat Clear Calc 128.8 Estimated GFR > 60 Random Glucose 122 H Calcium 9.0 Total Bilirubin AST ALT Alkaline Phosphatase Total Protein Albumin Urine Opiates Screen Urine Fentanyl Screen Ur Barbiturates Screen Valproic Acid 77.6 Ur Phencyclidine Scrn Ur Amphetamines Screen U Benzodiazepines Scrn Urine Cocaine Screen U Marijuana (THC) Screen Ethyl Alcohol < 10 COVID-19 (JOCELIN) COVID-19 [employer] 08/23/21 08/23/21 08/25/21 07:13 07:13 08:17 WBC 7.2 RBC 4.33 L Hgb 13.1 L Hct 40.6 L MCV 93.8 MCH 30.3 MCHC 32.3 RDW 13.1 Plt Count 200 MPV 10.4 Immature Gran % (Auto) Cancelled Neut % (Auto) Cancelled Lymph % (Auto) Cancelled [place] % (Auto) Cancelled Eos % (Auto) Cancelled Baso % (Auto) Cancelled Lymph # (Auto) Cancelled [place] # (Auto) Cancelled Eos # (Auto) Cancelled Baso # (Auto) Cancelled Abs Immat Gran (auto) Cancelled Absolute Neuts (auto) Cancelled Absolute Nucleated RBC 0.000 Nucleated RBC % (auto) 0.0 Neutrophils % (Manual) 62 Band Neutrophils % 1 L Lymphocytes % (Manual) 25 Monocytes % (Manual) 3 Eosinophils % (Manual) 7 H Metamyelocytes % 2 Abs Neuts (Manual) 4.5 Lymphocytes # (Manual) 1.8 Monocytes # (Manual) 0.2 Eosinophils # (Manual) 0.5 Metamyelocytes # 0.1 Platelet Estimate NORMAL Plt Morphology Comment NORMAL RBC Morphology NOTED Polychromasia 1+ (0-2) Hypochromasia 1+ (5-14) Sodium 141 Potassium 4.5 Chloride 102 Carbon Dioxide 31 H Anion Gap 13 BUN 13 Creatinine 0.77 Estim Creat Clear Calc 162.2 Estimated GFR > 60 Random Glucose 85 Calcium 8.3 L D Total Bilirubin 0.2 AST 67 H ALT 110 H Alkaline Phosphatase 57 Total Protein 5.8 L Albumin 3.5 Urine Opiates Screen Urine Fentanyl Screen Ur Barbiturates Screen Valproic Acid 78.2 Ur Phencyclidine Scrn Ur Amphetamines Screen U Benzodiazepines Scrn Urine Cocaine Screen U Marijuana (THC) Screen Ethyl Alcohol COVID-19 (JOCELIN) COVID-19 Clin Com DS: Summary Hospital Course Hospital Course: Pt is a 25 y.o. Male who has a working diagnosis of schizoaffective disorder, bipolar type. Recent prolonged [facility] admission for agitation, psychosis, sissy. Discharged from [facility] 08/13 and represented the following day on a section 12 for hypersexuality, disorganized, and threatening behavior. Presents as hypersexual, disorganized thinking. Denies any head trauma.? Precis: 1. Increased depakote 2000mg po qhs to 1000 mg QAM and 2000 mg QHS. VPA level 77.8. 2. Increased Olanzapine to 20mg po BID. 3. discharged to home with outpt appointments in place. pt was substantially improved from admission but remained somewhat hypomanic at discharge. he had signed a 3-day notice and there were insufficient grounds to hold him against his will. Time Spent with Patient Time attestation: Total time spent providing and/or coordinating discharge services: Discharge Plan Discharge Patient Disposition: Home, Self-Care Discharge Diagnosis: Schizoaffective Disorder, Bipolar Type Referrals: Poppy Cantor (Therapy) [Other] - 08/29/21 12:00 pm (In Person Appointment ) Herminia Ramirez (Psychiatry) [Other] - 09/25/21 9:00 am (Telehealth Appointment Psychiatric Evaluation Please check your email for the zoom link the day of your appointment. ) Herminia Ramirez (Psychiatry) [Other] - 10/23/21 10:30 am (Telehealth Appointment Medication Management ) Physician,None [Primary Care Provider] - 1 Week ([facility] walk in clinic [phone]) Discharge Medications: New nicotine (polacrilex) 2 mg Gum 2 mg buccal Q2H PRN (Reason: Nicotine Cravings) 30 Days Qty: 60 RF: 0 olanzapine 10 mg Tablet 20 mg PO BID 30 Days Qty: 120 RF: 0 divalproex 500 mg Tablet,Delayed Release (Dr/Ec) 1,000 mg PO DAILY 30 Days Qty: 60 RF: 0 divalproex 500 mg Tablet,Delayed Release (Dr/Ec) 2,000 mg PO BEDTIME 30 Days Qty: 120 RF: 0 Discontinued nicotine 14 mg/24 hr patch 24 hour 1 patch topical DAILY RF: 0 divalproex 250 mg tablet,delayed release (DR/EC) 1 tab PO BID RF: 0 olanzapine 5 mg tablet 1 tab PO BID RF: 0 divalproex 500 mg tablet,delayed release (DR/EC) 1,000 mg PO BID RF: 0 zolpidem 10 mg tablet 1 tab PO BEDTIME PRN (Reason: insomnia) RF: 0 risperidone 1 mg tablet 1 tab PO BID RF: 0 Discharge Orders: Discharge Order (Routine); Ordered 08/27/21 Ordered By: Devante Melchor Diet: advance to usual diet Activity on Discharge: As tolerated Stand Alone Forms: Patient Portal Discharge page, Community Support Care Plan Goals: maintain stable living in the community supported by outpatient treatment providers Health Concerns: none Plan of Treatment: take medications as prescribed, attend appointments as scheduled Assessment: not at imminent risk of harm to self or others Discharge Date/Time: 08/27/21 11:08
== END 2021-08-27 11:08 | disposition home or self-care (01) | DRG 750 ==
LOC: HO.ED 23:07 → HO.PADLT16 08-21 17:06
PROVIDERS: Internal Medicine; Social Worker; Admitting Provider Psychiatry & Neurology Psychiatry; Emergency Provider Emergency Medicine Emergency Medical Services; Visit Provider Psychiatry & Neurology Psychiatry
DX: F25.0 Schizoaffective disorder, bipolar type (principal); R45.850 Homicidal ideations; F17.210 Nicotine dependence, cigarettes, uncomplicated; Z20.822 Contact with and (suspected) exposure to COVID-19; H92.02 Otalgia, left ear; Z71.6 Tobacco abuse counseling; Z79.899 Other long term (current) drug therapy
CPT/HCPCS: 36415; 80048; 80053; 80164; 80307; 82077; 85007; 85025; 85027; 87635; 93005; 96372; 99285; J2060; Q0163

== ENCOUNTER 2021-08-28 14:43 | Inpatient (IN) | payer OTHER, SELFPAY ==
[2021-08-28 15:19] VITALS: BP 152/94; PULSE 105; RESP 18; TEMP 37.5; O2SAT 97; BMI 31.8
--- NOTE | 2021-08-28 15:36 | ED_ITS ---
HPI - Psych General Chief Complaint: Psychiatric Symptoms Stated Complaint: PSYCH EVAL, SECTION 12, RESTRAINED AT THIS TIME Time Seen by Provider: 08/28/21 15:27 History of Present Illness HPI Narrative: 25-year-old male with a history of schizoaffective disorder. Was just discharged from the [facility] unit yesterday. Patient start having hallucination. Hypersexual. Noncompliant with medications. Symptomatic in for further evaluation Related Data Previous Rx's Medication Instructions Recorded divalproex 500 mg tablet,delayed 1,000 mg PO DAILY 30 Days #60 tab 08/27/21 release divalproex 500 mg tablet,delayed 2,000 mg PO BEDTIME 30 Days #120 08/27/21 release tab nicotine (polacrilex) 2 mg gum 2 mg BUCCAL Q2H PRN 30 Days #60 ea 08/27/21 olanzapine 10 mg tablet 20 mg PO BID 30 Days #120 tab 08/27/21 Allergies Allergy/AdvReac Type Severity Reaction Status Date / Time No Known Allergies Allergy Verified 08/20/21 22:18 Review of Systems Review of Systems: Patient unable to provide review systems secondary to patient's condition [facility] Social History Social History Household Members: Family Household Members Other:: mother Housing: Apartment Do you presently have visiting nurse or other home services: No Patient Tobacco Use Status: Current everyday Tobacco user Tobacco use type: Cigarette e-Cigarette/Vaping Use: Never Used Second Hand Smoke Exposure: No Substance Use Type: Marijuana Advance Directives: No Advance Directives Information Provided: Yes service: No Sexual orientation: Don't Know Physical Exam Vital Signs: Vital Signs: Last Vital Signs Temp 99.5 F 08/28/21 15:19 Pulse 105 H 08/28/21 15:19 Resp 18 08/28/21 15:19 BP 152/94 H 08/28/21 15:19 Pulse Ox 97 08/28/21 15:19 Body Mass Index 31.8 Appearance: Alert. Oriented X3. No acute distress. Eyes: Pupils equal, round and reactive to light. ENT: Pharynx normal. Neck: Normal inspection. Neck supple. No lymph nodes noted. No crepitus CVS: Normal heart rate and rhythm. Pulses normal. Normal S1 and S2 Respiratory: No respiratory distress. Breath sounds normal. No Wheezing. No rales Abdomen: Soft and nontender. No rigidity. No distention. good BS x4 Skin: Skin warm and dry. Normal skin color. Normal skin turgor. Extremities: No lower extremity edema. Neurovascular intact to all extremities. No Lacerations. No Rash Neuro: No motor deficit. No sensory deficit. Moving all extermities. No slurred speech MDM - Psych MDM Narrative Medical decision making narrative: Well-appearing neurologically intact. Agitated. Having active hallucinations. Will get crisis to evaluate patient's Lab Data Labs: Lab Results 08/28/21 Range/Units 15:37 COVID-19 (JOCELIN) Negative (Negative) COVID-19 Clin Com See Note Discharge Plan Discharge Clinical Impression: Schizoaffective disorder, bipolar type Prescriptions: No Action nicotine (polacrilex) 2 mg Gum 2 mg buccal Q2H PRN (Reason: Nicotine Cravings) 30 Days Qty: 60 RF: 0 olanzapine 10 mg Tablet 20 mg PO BID 30 Days Qty: 120 RF: 0 divalproex 500 mg Tablet,Delayed Release (Dr/Ec) 1,000 mg PO DAILY 30 Days Qty: 60 RF: 0 divalproex 500 mg Tablet,Delayed Release (Dr/Ec) 2,000 mg PO BEDTIME 30 Days Qty: 120 RF: 0
[2021-08-28] MEDS: Haloperidol Lactate 5 MG/ML VIAL IM ×2 (15:48→16:25)
[2021-08-28] MEDS: LORazepam 2 MG/ML VIAL IM (15:49)
[2021-08-28 16:17] LABS: COVID-19 Test Negative (Negative); IDNOW Serial# 9DD0AD1C
--- NOTE | 2021-08-28 17:52 | MHC.CARE ---
CARE team confirmed w/ [facility] that pt was seen in the community and he is an Inpatient bedsearch at this time.
--- NOTE | 2021-08-28 18:57 | MHC.CARE ---
Per Jessica @ [facility] bedsearch team, pt was pre-accepted to [facility] for tomorrow. [facility] will follow up tomorrow.
[2021-08-28] MEDS: OLANZapine 10 MG TABLET 20 MG PO (21:00)
--- NOTE | 2021-08-28 21:05 | MHC.CARE ---
Per Y[facility], this pt is not going to [facility] tomorrow, [facility]'s error as they mixed pt's up with the same name.
--- NOTE | 2021-08-28 21:06 | PC.NURSE ---
Patient refused his Depakote saying it makes him shake but patient took his Olanzapine 20 mg as ordered for bedtime. Patient is calm and quiet at this time, will continue to monitor
[2021-08-29] VITALS (13 sets, daily range): BP systolic 125–159; BP diastolic 67–102; PULSE 70–83; RESP 16–20; TEMP 36.6–36.8; O2SAT 97–100
--- NOTE | 2021-08-29 06:17 | PC.NURSE ---
Patient slept through the night, no distress observed/reported, patient was up times 2 for bathroom use and back, appetite good, behavior appropriate at this time however it is unpredictable due to impulsiveness, patient is refusing depakote only, patient is on section 12 inpatient bed search, will continue to monitor.
--- NOTE | 2021-08-29 07:40 | PC.NURSE ---
PT SLEEPING RESP EVEN AND UNLABORED.
[2021-08-29] MEDS: HaloperidoL 5 MG TABLET PO ×2 (07:57→14:37)
[2021-08-29] MEDS: LORazepam 1 MG TABLET PO ×3 (07:57→20:21)
[2021-08-29] MEDS: OLANZapine 10 MG TABLET 20 MG PO ×2 (07:57→20:22)
--- NOTE | 2021-08-29 08:09 | PC.NURSE ---
PT ISAMB (I) GAIT STEADY IN HALLWAY AND COMMON AREA. PT IS REQUESTING TO LEAVE, STATES THAT HE SPOKE TO HIS GRAND MOTHER AND SHE SAYS THAT HE CAN STAY WITH HER. PT REQUESTED/GIVEN A SHOWER CHANGED INTO [facility], PT REFUSED HIS DEPOKOTE AND BREAKFAST.
[2021-08-29 08:27] LABS: Amphetamine Screen Urine Not Detected (Not Detect); Barbiturates, Urine Not Detected (Not Detect); Benzodiazepines Screen Urine Not Detected (Not Detect); Cannabinoid Screen Urine POSITIVE (Not Detect); Cocaine Screen Urine Not Detected (Not Detect); Fentanyl, urine Not Detected (Not Detect); Opiate Screen Urine Not Detected (Not Detect); Phencyclidine Screen Urine Not Detected (Not Detect)
--- NOTE | 2021-08-29 11:28 | PC.NURSE ---
care team (rene) is speaking with pt. pt states that he does not want to be hospitalized. pt is aware of plan of care for admission/bed search on inpatient unit.
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
[2021-08-29] MEDS: Haloperidol Lactate 5 MG/ML VIAL IM (15:50)
[2021-08-29] MEDS: LORazepam 2 MG/ML VIAL IM (15:51)
--- NOTE | 2021-08-29 16:08 | PC.NURSE ---
pt awake and alert with normal resps, continues to ask for a discharge but remaoins calm and cooperative, maintains appropriate eyecontact.
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
--- NOTE | 2021-08-30 02:46 | PC.NURSE ---
pt sleeping, needs met at bedside. rr evena and reg. skin pink warm and dry. pt visable on the monior.
[2021-08-30 05:28] VITALS: BP 120/80; PULSE 72; RESP 16; TEMP 36.6; O2SAT 100
[2021-08-30] MEDS: LORazepam 1 MG TABLET PO ×3 (08:08→20:23)
[2021-08-30] MEDS: HaloperidoL 5 MG TABLET PO ×2 (08:08→15:10)
[2021-08-30] MEDS: OLANZapine 10 MG TABLET 20 MG PO ×2 (08:09→20:23)
[2021-08-30] MEDS: Nicotine Polacrilex 2 MG GUM BUCCAL ×3 (08:17→18:18)
[2021-08-30 09:01] VITALS: BP 149/77; PULSE 81; RESP 16; TEMP 36.8; O2SAT 99
--- NOTE | 2021-08-30 11:48 | PC.NURSE ---
PT frequently asking to leave, states he is here because he would not take medications and his mother didn't like that. PT states he doesn't want to take medications if it will impact his driving. PT encouraged to take his medications, pt refused AM depakote, agreeable to zyprexa and prn haldol. PT remaining in behavioral control at this time, easily redirectible, continues to focus on discharge.
--- NOTE | 2021-08-30 14:14 | PC.NURSE ---
James Terry - [facility] - [phone]
[2021-08-30 20:26] VITALS: PULSE 80; RESP 16
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
[2021-08-31 02:43] VITALS: BP 118/80; PULSE 78; RESP 16; TEMP 36.6; O2SAT 99
[2021-08-31 06:47] VITALS: BP 118/80; PULSE 78; RESP 18; TEMP 36.6; O2SAT 99
--- NOTE | 2021-08-31 06:51 | PC.NURSE ---
pt has slept thur the night with occassional waking to go to the bathroom. pt has frequently asked when bhn is coming, bhn has been called and message left. pt has a steady gait.
--- NOTE | 2021-08-31 07:03 | PC.NURSE ---
[facility] scale unable to due due to pt sleeping.
--- NOTE | 2021-08-31 07:34 | PC.NURSE ---
pt requesting this rn to call [facility] so he can leave. pt provided with [facility] main number.
[2021-08-31] MEDS: LORazepam 1 MG TABLET PO ×3 (07:38→20:05)
[2021-08-31] MEDS: OLANZapine 10 MG TABLET 20 MG PO ×2 (07:38→20:05)
--- NOTE | 2021-08-31 07:41 | PC.NURSE ---
pt refused depakote, took all other meds.
[2021-08-31 12:03] VITALS: BP 147/97; PULSE 107; RESP 16; TEMP 36.8; O2SAT 99
[2021-08-31] MEDS: Nicotine Polacrilex 2 MG GUM BUCCAL ×2 (14:39→16:41)
--- NOTE | 2021-08-31 15:07 | PC.NURSE ---
Report received. Pt resting in bed at current, no signs of distress, continues to be a section 12 bed search.
[2021-08-31] MEDS: HaloperidoL 5 MG TABLET PO (17:17)
--- NOTE | 2021-08-31 17:21 | PC.NURSE ---
Pt currently using the phone, calm and cooperative, no complaints at this time
--- NOTE | 2021-09-01 | ECG_ITS ---
Test Reason : MEDCLEARANCE Blood Pressure : / mmHG Vent. Rate : 058 BPM Atrial Rate : 058 BPM P-R Int : 156 ms QRS Dur : 088 ms QT Int : 392 ms P-R-T Axes : 050 093 048 degrees QTc Int : 384 ms Sinus bradycardia with sinus arrhythmia Rightward axis Borderline ECG Heart rate has increased Referred By: Taylor Golden Electronically Signed By:CHUNG AHUMADA MD
[2021-09-01 04:33] VITALS: BP 120/64; PULSE 63; RESP 16; TEMP 36.8; O2SAT 97
--- NOTE | 2021-09-01 05:47 | PC.NURSE ---
Patient slept through the night, no distress observed/reported, patient is pre-accepted to , VSS, behavior appropriate, will continue to monitor.
--- NOTE | 2021-09-01 07:08 | PC.NURSE ---
patient appears to remain asleep at present with even unlabored breaths, patient appears in no distress
[2021-09-01] MEDS: Nicotine Polacrilex 2 MG GUM BUCCAL ×6 (07:43→21:36)
[2021-09-01] MEDS: LORazepam 1 MG TABLET PO ×3 (07:43→20:19)
[2021-09-01] MEDS: OLANZapine 10 MG TABLET 20 MG PO ×2 (08:01→20:19)
[2021-09-01 08:23] VITALS: BP 137/82; PULSE 90; RESP 16; TEMP 36.6; O2SAT 98
[2021-09-01] MEDS: Amoxicillin/Potassium Clav 875 MG TABLET PO (08:33)
[2021-09-01 13:19] LABS: MANUAL DIFF FLAG NO
[2021-09-01 13:21] LABS: Basophils Percent Auto 0.5 % (0-2); Eosinophils Absolute Auto 0.3 X10*3/uL (0.0-0.4); Eosinophils Percent Auto 3.2 % (0-4); Hematocrit 46.2 % (42-52); Hemoglobin 15.1 g/dl (14.0-18.0); Imm Gran Abs Auto 0.05 X10*3/uL (0.00-0.03); Imm Gran Pct Auto 0.6 % (0.0-0.4); Lymphocytes Absolute Auto 1.6 X10*3/uL (1.2-4.9); Mean Corpuscular HGB Conc 32.7 g/dl (31.0-36.0); Mean Corpuscular Hemoglobin 30.7 pg (27.0-33.0); Mean Corpuscular Volume 93.9 fL (80-98); Mean Platelet Volume 9.9 fL (9.4-12.4); Monocytes Absolute Auto 0.9 X10*3/uL (0.1-1.2); Monocytes Percent Auto 9.7 % (2-11); Neutrophils Absolute Auto 6.1 X10*3/uL (2.0-8.3); Platelet Count 226 X10*3/uL (160-400); Red Blood Count 4.92 X10*6/uL (4.60-5.80); Red Cell Distribution Width 13.8 % (11.0-16.0); White Blood Count 8.9 X10*3/uL (4.8-10.8)
[2021-09-01 13:51] LABS: Alanine Aminotransferase 120 U/L (0-40); Albumin Level 4.3 g/dL (3.5-5.0); Alkaline Phosphatase 67 U/L (39-117); Anion Gap 13 (12-20); Aspartate Amino Transferase 40 U/L (5-37); Bilirubin Total 0.3 mg/dL (0.0-1.0); Blood Urea Nitrogen 15 mg/dL (9-16); Calcium 9.4 mg/dL (8.4-10.2); Carbon Dioxide 31 mmol/L (22-29); Chloride 103 mmol/L (96-108); Creatinine Clr Calc Pharmacy 136.6; Estimated Glomerular Filt Rate > 60; Glucose Random 103 mg/dL (60-115); Potassium 4.7 mmol/L (3.3-5.1); Sodium 142 mmol/L (135-145); Total Protein 7.2 g/dL (6.5-8.0)
[2021-09-01 18:00] VITALS: BP 133/76; PULSE 95; RESP 16; TEMP 36.7; O2SAT 98
--- NOTE | 2021-09-01 18:00 | PC.ADMIT ---
Pt is a 25 year old male who presents to from [facility] ED at approx 15:30 on a cv status. Pt is covid - Utox + for THC. Per chart review, pt was seen by Carlie GOMEZ and YVETTE co-response team om 08/28/21 after his mother called requesting after his mother called for an assessment for psychosis and aggressiveness and hyper-sexual behavior. Pt was discharged from on 08/27/21. Pt denied SI/HI/VH. Pt reported AH of male voices, but did not explain any further. Pt appears anxious and kept asking about discharge paperwork during the admission process. Pt reported RT ear pain. called and notified of admission. Pt is on 15min safety checks. Start treatment plan and monitor for safety
[2021-09-01 19:08] LABS: Valproate < 2.0 mcg/mL (50.0-100.0)
[2021-09-01] MEDS: traZODone HCL 50 MG TABLET PO (21:36)
--- NOTE | 2021-09-01 22:51 | PC.NURSE ---
3 day notice signed on 09/01/21, up on 09/04/21
[2021-09-02 06:00] VITALS: BP 125/66; PULSE 76; RESP 18; TEMP 36.7; O2SAT 98
[2021-09-02] MEDS: OLANZapine 10 MG TABLET 20 MG PO ×2 (08:24→20:16)
[2021-09-02] MEDS: LORazepam 1 MG TABLET PO ×3 (08:24→20:16)
[2021-09-02 08:44] LABS: Estimated Average Glucose 94 mg/dL; Hemoglobin A1c % 4.9 %
[2021-09-02 09:07] LABS: Cholesterol 236 mg/dL; HDL Cholesterol 49 mg/dL; LDL Cholesterol Calculated 161 mg/dl; Triglycerides 130 mg/dL
[2021-09-02 09:28] LABS: Free T4 (Free Thyroxine) 1.01 ng/dL (0.71-1.85); Thyroid Stimulating Hormone 2.05 uIU/mL (0.32-4.0)
[2021-09-02 09:30] LABS: Folate 12.4 ng/mL (> or = 4.0); Vitamin B12 832 pg/mL (200-900)
[2021-09-02 12:16] LABS: HBsAGNum1 0.12 S/CO (0.00-0.99); Hepatitis B Surface Antigen Negative (Negative); ~HepC Num1 0.08 S/CO (0.00-0.79); ~Hepatitis C Antibody Nonreactive (Nonreactive)
[2021-09-02 12:21] LABS: HBc Num1 0.07 S/CO (0.00-0.79); Hepatitis B Core Antibody Nonreactive (Nonreactive); ~Hepatitis B Surface Antibody NONREACTIVE (Nonreactive)
[2021-09-02] MEDS: Nicotine Polacrilex 2 MG GUM BUCCAL ×3 (13:36→18:02)
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
[2021-09-02 18:00] VITALS: BP 140/86; PULSE 75; TEMP 36.4; O2SAT 96
[2021-09-02] MEDS: Divalproex Sodium 500 MG TABLET.DR 2000 MG PO (20:16)
[2021-09-02] MEDS: hydrOXYzine HCL 25 MG TABLET PO (20:18)
[2021-09-02] MEDS: traZODone HCL 50 MG TABLET PO (20:18)
[2021-09-03 06:00] VITALS: BP 107/51; PULSE 66; RESP 16; TEMP 36.1; O2SAT 98
[2021-09-03 07:55] LABS: Hepatitis A Antibody IgM 0.14 Index (0-0.79); ~Hepatitis A Antibody IgM Nonreactive (Nonreactive)
[2021-09-03] MEDS: LORazepam 1 MG TABLET PO ×2 (08:39→18:07)
[2021-09-03] MEDS: Divalproex Sodium 500 MG TABLET.DR 1000 MG PO (08:39)
[2021-09-03] MEDS: OLANZapine 10 MG TABLET 20 MG PO ×2 (08:39→22:25)
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
[2021-09-03] MEDS: Nicotine Polacrilex 2 MG GUM BUCCAL ×3 (14:24→19:32)
[2021-09-03 20:49] VITALS: BP 145/67; PULSE 99; RESP 20; TEMP 36.4; O2SAT 98
[2021-09-03] MEDS: Lithium Carbonate 300 MG CAPSULE 600 MG PO (22:24)
[2021-09-04 06:00] VITALS: BP 107/53; PULSE 64; RESP 16; TEMP 36.3; O2SAT 98
[2021-09-04] MEDS: OLANZapine 10 MG TABLET 20 MG PO ×2 (08:34→21:26)
[2021-09-04] MEDS: Lithium Carbonate 300 MG CAPSULE 600 MG PO ×2 (08:34→21:26)
--- NOTE | 2021-09-04 10:33 | P.PNPSI_ITS ---
Subjective Subjective Date of Service: 09/04/21 Reason For Visit: Schizoaffective Disorder, bipolar type Subjective Notes: Section 7 Interim History: Per nursing, pt has been visible in the unit, pacing at times intrusive with female peers. Needs constant redirection on 5 minute checks. Pt insisting on leaving. Pt denies SI/HI. However, pt making gestures to some staff as if holding knife. Pt reports that because he threatened neighbors, he worries his neighbors will go after him. Pt denies AH/VH- appears internally preoccupied. Collateral information from mother: pt increasingly more suspicious towards neighbors.P t reporting sibling was killed when this was not true. Mental Status Exam Mental Status Exam Narrative: Appearance: casually groomed, fair hygiene, restless Behavior: overly familiar, poor boundaries psychomotor:increasingly more agitated and labile Speech:clear, regular rate/rhythm/volume, spontaneous Thought process:tangential at times, some derailment Thought content:no overt psychosis, wanting to go home Mood: fine Affect: expansive SI:none HI:none VH/AH: appears to be responding to internal stimuli but denies AH/VH. Delusions:hypersexual behaviors- ? if misinterpreting females interactions as females flirting or soliciting sexual interactions with him. Pt reports some parnaoia towards neighbors Insight/judgment:impaired x 2. Memory/cog: alert, do suspect underlying intellectual disability Diagnostics Vital Signs (24Hr): Vital Signs - 24 hr 09/04/21 18:00 09/05/21 06:00 09/05/21 09:02 Temperature 98 F 97.6 F 97.0 F Pulse Rate 80 55 65 Respiratory Rate 18 16 Blood Pressure 130/65 119/61 192/76 H Pulse Oximetry 98 99 Body Mass Index 31.8 Labs Results: 09/01/21 13:16 09/01/21 13:16 Medications Medications Current Medications Acetaminophen (Acetaminophen 325 Mg Tablet) 650 mg PO Q6H PRN PRN Reason: Headache/Pain Mild Scale (1-3) Al Hydroxide/Mg Hydroxide (Magnesium Hydrox/Alum Hydrox 30 Ml Oral.Susp) 30 ml PO Q6H PRN PRN Reason: Heartburn/Nausea Haloperidol (Haloperidol 5 Mg Tablet) 5 mg PO Q4H PRN PRN Reason: agitation, psychosis Last Admin: 08/31/21 17:17 Dose: 5 mg Documented by: Hydroxyzine HCl (Hydroxyzine Hcl 25 Mg Tablet) 25 mg PO BEDTIME PRN PRN Reason: Anxiety Last Admin: 09/02/21 20:18 Dose: 25 mg Documented by: [place] Carbonate ([place] Carbonate 300 Mg Capsule) 600 mg PO BID [facility] Last Admin: 09/05/21 09:00 Dose: 600 mg Documented by: Lorazepam (Lorazepam 1 Mg Tablet) 1 mg PO Q6H PRN PRN Reason: anxiety/agitation Last Admin: 09/04/21 16:58 Dose: 1 mg Documented by: Magnesium Hydroxide (Milk Of Magnesia 30 Ml Oral.Susp) 30 ml PO DAILY PRN PRN Reason: Constipation Nicotine Polacrilex (Nicotine Polacrilex 2 Mg Gum) 2 mg BUCCAL Q2H PRN PRN Reason: Nicotine Cravings Last Admin: 09/04/21 22:31 Dose: 2 mg Documented by: Olanzapine (Olanzapine 10 Mg Tablet) 20 mg PO BID [facility] Last Admin: 09/05/21 09:00 Dose: 20 mg Documented by: Trazodone HCl (Trazodone Hcl 50 Mg Tablet) 50 mg PO BEDTIME PRN PRN Reason: Insomnia Last Admin: 09/02/21 20:18 Dose: 50 mg Documented by: Allergies Allergies Allergy/AdvReac Type Severity Reaction Status Date / Time No Known Allergies Allergy Verified 08/20/21 22:18 Assessment & Plan Assessment & Plan (1) Schizoaffective disorder, bipolar type: Status: Acute Code(s): F25.0 - Schizoaffective disorder, bipolar type Assessment and Plan: Mr. Terry is a 25 year-old male with hx of inappropriate sexual behaviors, explosive behaviors, I suspect intellectual disability.Further collateral information from mother indicate that pt has had some degree of paranoia, appeared to hear voices for a long time (since he was 17 or 18) but did not have formal psychiatric treatment. He appears to have minimal to no understanding as to why his behaviors are concerning to others. He does not report overt delusional content and minimizes events leading to this admission. PLAN: 1. Admit to M5 2. Switched depakote to lithium due to myoclonus like s/e (which pt did not tolerate jerk-like involuntary movement of forearms) and mild elevation LFT. Start lithium 600mg po BID- check lithium level on 09/06 AM. 3. Continue Olanzapine 4. Obtain collateral information- unclear hx of psychosis, timeline. 5. Aftercare planning. I spent minutes with the patient and/or on the patient floor today, greater than?50% of which was spent counseling/coordinating care. Reason for contiued inpatient stay Substantial Risk for: harm to others and inability to function
[2021-09-04] MEDS: Nicotine Polacrilex 2 MG GUM BUCCAL ×4 (12:49→22:31)
[2021-09-04] MEDS: LORazepam 1 MG TABLET PO (16:58)
[2021-09-04 18:00] VITALS: BP 130/65; PULSE 80; TEMP 36.6
[2021-09-05 06:00] VITALS: BP 119/61; PULSE 55; RESP 18; TEMP 36.4; O2SAT 98
[2021-09-05] MEDS: Lithium Carbonate 300 MG CAPSULE 600 MG PO ×2 (09:00→20:11)
[2021-09-05] MEDS: OLANZapine 10 MG TABLET 20 MG PO ×2 (09:00→20:10)
[2021-09-05 09:02] VITALS: BP 192/76; PULSE 65; RESP 16; TEMP 36.1; O2SAT 99
[2021-09-05] MEDS: Nicotine Polacrilex 2 MG GUM BUCCAL ×4 (10:52→20:10)
--- NOTE | 2021-09-05 16:47 | P.PNPSI_ITS ---
Subjective Subjective Date of Service: 09/05/21 Reason For Visit: Schizoaffective Disorder, bipolar type Subjective Notes: Section 7 Interim History: Section VII filed. Mother tells Radha Burroughs [employer] that pt has been more paranoid and threatening with neighbors along with increase in agitation, however mother states pt did not assault uncle nor did he expose himself or masturbate in front of her. Pt is calm today. Has no questions, states he is doing OK. Medication Compliance: Yes Side effects from medications: No Attending Groups: No Review of Systems Acute medical concerns: No Review of Systems Reports behavioral changes Psychiatric: Reports anxiety, Reports behavioral changes, Reports difficulty concentrating, Reports anhedonia, Reports paranoia and Reports hallucinations Mental Status Exam Mental Status Exam Patient Appearance: Fatigued Patient Orientation: Person and Place Level of Consciousness: Awake and Alert Patient Behavior: Guarded, Talkative, Suspicious, Anxious and Pacing Mood Description: Anxious and Apprehensive Affect Description: Anxious and Apprehensive Patient Cognition Impaired: Yes Ability to Follow Directions: Fair Speech Pattern: Spontaneous Speech and Long Pauses Memory Description: Remote Impaired and Episodic Impaired Delusions: Paranoid Ideation Perceptual Disturbances: Depersonalization and Derealization Thought Process: Illogical and Distracted Thought Content: positive for Flight of Ideas and positive for Disorganized Abnormal Motor Activity Signs and Symptoms: Restlessness Judgement: Poor Diagnostics Vital Signs (24Hr): Vital Signs - 24 hr 09/04/21 18:00 09/05/21 06:00 09/05/21 09:02 Temperature 98 F 97.6 F 97.0 F Pulse Rate 80 55 65 Respiratory Rate 18 16 Blood Pressure 130/65 119/61 192/76 H Pulse Oximetry 98 99 Body Mass Index 31.8 Labs Results: 09/01/21 13:16 09/01/21 13:16 Medications Medications Current Medications Acetaminophen (Acetaminophen 325 Mg Tablet) 650 mg PO Q6H PRN PRN Reason: Headache/Pain Mild Scale (1-3) Al Hydroxide/Mg Hydroxide (Magnesium Hydrox/Alum Hydrox 30 Ml Oral.Susp) 30 ml PO Q6H PRN PRN Reason: Heartburn/Nausea Haloperidol (Haloperidol 5 Mg Tablet) 5 mg PO Q4H PRN PRN Reason: agitation, psychosis Last Admin: 08/31/21 17:17 Dose: 5 mg Documented by: Hydroxyzine HCl (Hydroxyzine Hcl 25 Mg Tablet) 25 mg PO BEDTIME PRN PRN Reason: Anxiety Last Admin: 09/02/21 20:18 Dose: 25 mg Documented by: [place] Carbonate ([place] Carbonate 300 Mg Capsule) 600 mg PO BID [facility] Last Admin: 09/05/21 09:00 Dose: 600 mg Documented by: Lorazepam (Lorazepam 1 Mg Tablet) 1 mg PO Q6H PRN PRN Reason: anxiety/agitation Last Admin: 09/04/21 16:58 Dose: 1 mg Documented by: Magnesium Hydroxide (Milk Of Magnesia 30 Ml Oral.Susp) 30 ml PO DAILY PRN PRN Reason: Constipation Nicotine Polacrilex (Nicotine Polacrilex 2 Mg Gum) 2 mg BUCCAL Q2H PRN PRN Reason: Nicotine Cravings Last Admin: 09/05/21 14:06 Dose: 2 mg Documented by: Olanzapine (Olanzapine 10 Mg Tablet) 20 mg PO BID [facility] Last Admin: 09/05/21 09:00 Dose: 20 mg Documented by: Trazodone HCl (Trazodone Hcl 50 Mg Tablet) 50 mg PO BEDTIME PRN PRN Reason: Insomnia Last Admin: 09/02/21 20:18 Dose: 50 mg Documented by: Allergies Allergies Allergy/AdvReac Type Severity Reaction Status Date / Time No Known Allergies Allergy Verified 08/20/21 22:18 Assessment & Plan Assessment & Plan (1) Schizoaffective disorder, bipolar type: Status: Acute Code(s): F25.0 - Schizoaffective disorder, bipolar type Assessment and Plan: Mr. Terry is a 25 year-old male with hx of inappropriate sexual behaviors, explosive behaviors, I suspect intellectual disability.Further collateral information from mother indicate that pt has had some degree of paranoia, appeared to hear voices for a long time (since he was 17 or 18) but did not have formal psychiatric treatment. He appears to have minimal to no understanding as to why his behaviors are concerning to others. He does not report overt delusional content and minimizes events leading to this admission. PLAN: 1. Admit to M5 2. Switched depakote to lithium due to myoclonus like s/e (which pt did not tolerate jerk-like involuntary movement of forearms) and mild elevation LFT. Start lithium 600mg po BID- check lithium level on 09/06 AM. 3. Continue Olanzapine 4. Obtain collateral information- unclear hx of psychosis, timeline. 5. Aftercare planning. 09/05/21: Continue current regime today. I spent __20____ minutes with the patient and/or on the patient floor today, g reater than?50% of which was spent counseling/coordinating care. Informed Consent: does not understand Reason for contiued inpatient stay Substantial Risk for: harm to self, harm to others, inability to function and rapid decompensation
[2021-09-05] MEDS: Haloperidol Lactate 5 MG/ML VIAL 10 MG IM (21:26)
[2021-09-05] MEDS: LORazepam 2 MG/ML VIAL IM (21:27)
--- NOTE | 2021-09-05 21:33 | P.PNPSI_ITS ---
Subjective Subjective Date of Service: 09/05/21 Reason For Visit: Schizoaffective Disorder, bipolar type Interim History: James was given IM haldol 10 mg in R deltoid and IM ativan 2 mg in L deltoid due to threatening behavior on the unit. He was yelling to everyone on the unit to get down on the ground, banging on the [place], yelling sexually inappropriate obscenities. Security was called and he asked them to arrest him. After restraint patient was redirected to his room, fell asleep. T/W did not wake him, sleep deemed therapeutic. Vital signs wnl. Education provided on medication risks and benefits. Medication Compliance: Yes Side effects from medications: No Diagnostics Vital Signs (24Hr): Vital Signs - 24 hr 09/05/21 06:00 09/05/21 09:02 Temperature 97.6 F 97.0 F Pulse Rate 55 65 Respiratory Rate 18 16 Blood Pressure 119/61 192/76 H Pulse Oximetry 98 99 Body Mass Index 31.8 Labs Results: 09/01/21 13:16 09/01/21 13:16 Medications Medications Current Medications Acetaminophen (Acetaminophen 325 Mg Tablet) 650 mg PO Q6H PRN PRN Reason: Headache/Pain Mild Scale (1-3) Al Hydroxide/Mg Hydroxide (Magnesium Hydrox/Alum Hydrox 30 Ml Oral.Susp) 30 ml PO Q6H PRN PRN Reason: Heartburn/Nausea Haloperidol (Haloperidol 5 Mg Tablet) 5 mg PO Q4H PRN PRN Reason: agitation, psychosis Last Admin: 08/31/21 17:17 Dose: 5 mg Documented by: Hydroxyzine HCl (Hydroxyzine Hcl 25 Mg Tablet) 25 mg PO BEDTIME PRN PRN Reason: Anxiety Last Admin: 09/02/21 20:18 Dose: 25 mg Documented by: [place] Carbonate ([place] Carbonate 300 Mg Capsule) 600 mg PO BID [facility] Last Admin: 09/05/21 20:11 Dose: 600 mg Documented by: Lorazepam (Lorazepam 1 Mg Tablet) 1 mg PO Q6H PRN PRN Reason: anxiety/agitation Last Admin: 09/04/21 16:58 Dose: 1 mg Documented by: Magnesium Hydroxide (Milk Of Magnesia 30 Ml Oral.Susp) 30 ml PO DAILY PRN PRN Reason: Constipation Nicotine Polacrilex (Nicotine Polacrilex 2 Mg Gum) 2 mg BUCCAL Q2H PRN PRN Reason: Nicotine Cravings Last Admin: 09/05/21 20:10 Dose: 2 mg Documented by: Olanzapine (Olanzapine 10 Mg Tablet) 20 mg PO BID [facility] Last Admin: 09/05/21 20:10 Dose: 20 mg Documented by: Trazodone HCl (Trazodone Hcl 50 Mg Tablet) 50 mg PO BEDTIME PRN PRN Reason: Insomnia Last Admin: 09/02/21 20:18 Dose: 50 mg Documented by: Allergies Allergies Allergy/AdvReac Type Severity Reaction Status Date / Time No Known Allergies Allergy Verified 08/20/21 22:18 Assessment & Plan Assessment & Plan (1) Schizoaffective disorder, bipolar type: Status: Acute Code(s): F25.0 - Schizoaffective disorder, bipolar type Assessment and Plan: Mr. Terry is a 25 year-old male with hx of inappropriate sexual behaviors, explosive behaviors, I suspect intellectual disability.Further collateral information from mother indicate that pt has had some degree of paranoia, appeared to hear voices for a long time (since he was 17 or 18) but did not have formal psychiatric treatment. He appears to have minimal to no understanding as to why his behaviors are concerning to others. He does not report overt delusional content and minimizes events leading to this admission. PLAN: 1. Admit to M5 2. Switched depakote to lithium due to myoclonus like s/e (which pt did not tolerate jerk-like involuntary movement of forearms) and mild elevation LFT. Start lithium 600mg po BID- check lithium level on 09/06 AM. 3. Continue Olanzapine 4. Obtain collateral information- unclear hx of psychosis, timeline. 5. Aftercare planning. 09/05/21: Continue current regime today. 09/05/21: note put in EMR per restraint protocol. I spent minutes with the patient and/or on the patient floor today, greater than?50% of which was spent counseling/coordinating care. Patient educated on: medication risk/benefits Reason for contiued inpatient stay Substantial Risk for: inability to function, rapid decompensation and med/psych decompensation
[2021-09-05 21:46] VITALS: BP 137/93; PULSE 91; RESP 20; O2SAT 98
--- NOTE | 2021-09-05 23:38 | PC.NURSE ---
The patient was in the hallway yelling everyone get down on the floor . Pt spit on nurses station window, and woke pts up out of bed by slamming doors. Pt upset about not being able to smoke on the unit. Security was called twice on the unit as pt could not be redirected multiple times [place] staff. At 2125 pt received 10mg of Hadol in RT deltoid. At 2126 Pt received 2mg Ativan IM in LT deltoid . Pt was assessed and cleared by provider Lamar on unit. Pt allowed one set of vitals at 2144 which were stable and refused the rest. Pt was agitated and redirected to his bedroom, and later relaxed. RN supervisor electric Cady was notified of the event. Pt is on 5 min safety checks
[2021-09-06 06:00] VITALS: BP 129/60; PULSE 60; RESP 18; TEMP 36.7; O2SAT 97
[2021-09-06] MEDS: OLANZapine 10 MG TABLET 20 MG PO ×2 (08:36→20:35)
[2021-09-06] MEDS: Lithium Carbonate 300 MG CAPSULE 600 MG PO ×2 (08:36→20:35)
[2021-09-06] MEDS: HaloperidoL 5 MG TABLET PO ×2 (09:28→17:05)
[2021-09-06] MEDS: Nicotine Polacrilex 2 MG GUM BUCCAL ×3 (09:28→19:50)
[2021-09-06] MEDS: LORazepam 1 MG TABLET PO ×2 (09:29→17:05)
[2021-09-06 17:11] VITALS: BP 145/65; PULSE 98; TEMP 36.6
--- NOTE | 2021-09-06 19:22 | HO.PSYCHPN ---
Subjective Subjective Date of Service: 09/06/21 Reason For Visit: Schizoaffective Disorder, bipolar type Subjective Notes: Section 7 Medical Problems Affecting Mental Status: No Interim History: Events of last evening noted. James has been quite disorganized and flagrantly psychotic There has been no further behavioral dyscontrol. Medication Compliance: Intermittent Side effects from medications: No Attending Groups: No Review of Systems Acute medical concerns: No Medical Review of Systems: unchanged Mental Status Exam Mental Status Exam Patient Appearance: Fatigued Patient Orientation: Person and Place Level of Consciousness: Awake and Alert Patient Behavior: Guarded, Talkative, Suspicious, Anxious and Pacing Mood Description: Anxious and Apprehensive Affect Description: Anxious and Apprehensive Patient Cognition Impaired: Yes Ability to Follow Directions: Fair Speech Pattern: Spontaneous Speech and Long Pauses Memory Description: Remote Impaired and Episodic Impaired Delusions: Paranoid Ideation Perceptual Disturbances: Depersonalization and Derealization Thought Process: Illogical and Distracted Thought Content: positive for Flight of Ideas and positive for Disorganized Abnormal Motor Activity Signs and Symptoms: Restlessness Judgement: Poor Diagnostics Vital Signs (24Hr): Vital Signs - 24 hr 09/05/21 21:46 09/06/21 06:00 09/06/21 17:11 Temperature 98.1 F 98 F Pulse Rate 91 60 98 Respiratory Rate 20 18 Blood Pressure 137/93 H 129/60 145/65 H Pulse Oximetry 98 97 Body Mass Index 31.8 Labs Results: 09/01/21 13:16 09/01/21 13:16 Medications Medications Current Medications Acetaminophen (Acetaminophen 325 Mg Tablet) 650 mg PO Q6H PRN PRN Reason: Headache/Pain Mild Scale (1-3) Al Hydroxide/Mg Hydroxide (Magnesium Hydrox/Alum Hydrox 30 Ml Oral.Susp) 30 ml PO Q6H PRN PRN Reason: Heartburn/Nausea Haloperidol (Haloperidol 5 Mg Tablet) 5 mg PO Q4H PRN PRN Reason: agitation, psychosis Last Admin: 09/06/21 17:05 Dose: 5 mg Documented by: Hydroxyzine HCl (Hydroxyzine Hcl 25 Mg Tablet) 25 mg PO BEDTIME PRN PRN Reason: Anxiety Last Admin: 09/02/21 20:18 Dose: 25 mg Documented by: [place] [employer] [place] Carbonate ([place] [facility] [employer] [place] Carbonate 300 Mg Capsule) 600 mg PO BID [facility] Last Admin: 09/06/21 08:36 Dose: 600 mg Documented by: Lorazepam (Lorazepam 1 Mg Tablet) 1 mg PO Q6H PRN PRN Reason: anxiety/agitation Last Admin: 09/06/21 17:05 Dose: 1 mg Documented by: Magnesium Hydroxide (Milk Of Magnesia 30 Ml Oral.Susp) 30 ml PO DAILY PRN PRN Reason: Constipation Nicotine Polacrilex (Nicotine Polacrilex 2 Mg Gum) 2 mg BUCCAL Q2H PRN PRN Reason: Nicotine Cravings Last Admin: 09/06/21 16:07 Dose: 2 mg Documented by: Olanzapine (Olanzapine 10 Mg Tablet) 20 mg PO BID [facility] Last Admin: 09/06/21 08:36 Dose: 20 mg Documented by: Trazodone HCl (Trazodone Hcl 50 Mg Tablet) 50 mg PO BEDTIME PRN PRN Reason: Insomnia Last Admin: 09/02/21 20:18 Dose: 50 mg Documented by: Allergies Allergies Allergy/AdvReac Type Severity Reaction Status Date / Time No Known Allergies Allergy Verified 08/20/21 22:18 Assessment & Plan Assessment & Plan (1) Schizoaffective disorder, bipolar type: Status: Acute Code(s): F25.0 - Schizoaffective disorder, bipolar type Assessment and Plan: Mr. Terry is a 25 year-old male with hx of inappropriate sexual behaviors, explosive behaviors, I suspect intellectual disability.Further collateral information from mother indicate that pt has had some degree of paranoia, appeared to hear voices for a long time (since he was 17 or 18) but did not have formal psychiatric treatment. He appears to have minimal to no understanding as to why his behaviors are concerning to others. He does not report overt delusional content and minimizes events leading to this admission. PLAN: 1. Admit to M5 2. Switched depakote to lithium due to myoclonus like s/e (which pt did not tolerate jerk-like involuntary movement of forearms) and mild elevation LFT. Start lithium 600mg po BID- check lithium level on 09/06 AM. 3. Continue Olanzapine 4. Obtain collateral information- unclear hx of psychosis, timeline. 5. Aftercare planning. 09/05/21: Continue current regime today. 09/05/21: note put in EMR per restraint protocol. 09/06/21: No changes to the above plans I spent _10 minutes with the patient and/or on the patient floor today, greater than?50% of which was spent counseling/coordinating care. Patient educated on: medication risk/benefits Informed Consent: does not understand Reason for contiued inpatient stay Substantial Risk for: harm to others
[2021-09-07] MEDS: OLANZapine 10 MG TABLET 20 MG PO ×2 (08:38→20:31)
[2021-09-07] MEDS: Lithium Carbonate 300 MG CAPSULE 600 MG PO ×2 (08:38→20:31)
[2021-09-07 17:50] VITALS: BP 141/74; PULSE 79; RESP 16; TEMP 35.9; O2SAT 100
[2021-09-07 18:00] VITALS: BP 141/74; PULSE 79; RESP 16; TEMP 35.9; O2SAT 100
[2021-09-07] MEDS: Nicotine Polacrilex 2 MG GUM BUCCAL (19:19)
--- NOTE | 2021-09-07 20:30 | HO.PSYCHPN ---
Subjective Subjective Date of Service: 09/07/21 Reason For Visit: Schizoaffective Disorder, bipolar type Subjective Notes: Section 7 Medical Problems Affecting Mental Status: No Interim History: James remains guarded and suspicious. He makes not eye contact and he tends to keep entirely to himself. Medication Compliance: No Attending Groups: No Review of Systems Acute medical concerns: No Mental Status Exam Mental Status Exam Patient Appearance: Fatigued Patient Orientation: Person and Place Level of Consciousness: Awake and Alert Patient Behavior: Guarded, Talkative, Suspicious, Anxious and Pacing Mood Description: Anxious and Apprehensive Affect Description: Anxious and Apprehensive Patient Cognition Impaired: Yes Ability to Follow Directions: Fair Speech Pattern: Spontaneous Speech and Long Pauses Memory Description: Remote Impaired and Episodic Impaired Delusions: Paranoid Ideation Perceptual Disturbances: Depersonalization and Derealization Thought Process: Illogical and Distracted Thought Content: positive for Flight of Ideas and positive for Disorganized Abnormal Motor Activity Signs and Symptoms: Restlessness Judgement: Poor Diagnostics Vital Signs (24Hr): Vital Signs - 24 hr 09/07/21 17:50 Temperature 96.6 F L Pulse Rate 79 Respiratory Rate 16 Blood Pressure 141/74 H Pulse Oximetry 100 Body Mass Index 31.8 Labs Results: 09/01/21 13:16 09/01/21 13:16 Medications Medications Current Medications Acetaminophen (Acetaminophen 325 Mg Tablet) 650 mg PO Q6H PRN PRN Reason: Headache/Pain Mild Scale (1-3) Al Hydroxide/Mg Hydroxide (Magnesium Hydrox/Alum Hydrox 30 Ml Oral.Susp) 30 ml PO Q6H PRN PRN Reason: Heartburn/Nausea Haloperidol (Haloperidol 5 Mg Tablet) 5 mg PO Q4H PRN PRN Reason: agitation, psychosis Last Admin: 09/06/21 17:05 Dose: 5 mg Documented by: Hydroxyzine HCl (Hydroxyzine Hcl 25 Mg Tablet) 25 mg PO BEDTIME PRN PRN Reason: Anxiety Last Admin: 09/02/21 20:18 Dose: 25 mg Documented by: [place] Carbonate ([place] Carbonate 300 Mg Capsule) 600 mg PO BID [facility] Last Admin: 09/07/21 08:38 Dose: 600 mg Documented by: Lorazepam (Lorazepam 1 Mg Tablet) 1 mg PO Q6H PRN PRN Reason: anxiety/agitation Last Admin: 09/06/21 17:05 Dose: 1 mg Documented by: Magnesium Hydroxide (Milk Of Magnesia 30 Ml Oral.Susp) 30 ml PO DAILY PRN PRN Reason: Constipation Nicotine Polacrilex (Nicotine Polacrilex 2 Mg Gum) 2 mg BUCCAL Q2H PRN PRN Reason: Nicotine Cravings Last Admin: 09/07/21 19:19 Dose: 2 mg Documented by: Olanzapine (Olanzapine 10 Mg Tablet) 20 mg PO BID [facility] Last Admin: 09/07/21 08:38 Dose: 20 mg Documented by: Trazodone HCl (Trazodone Hcl 50 Mg Tablet) 50 mg PO BEDTIME PRN PRN Reason: Insomnia Last Admin: 09/02/21 20:18 Dose: 50 mg Documented by: Allergies Allergies Allergy/AdvReac Type Severity Reaction Status Date / Time No Known Allergies Allergy Verified 08/20/21 22:18 Assessment & Plan Assessment & Plan (1) Schizoaffective disorder, bipolar type: Status: Acute Code(s): F25.0 - Schizoaffective disorder, bipolar type Assessment and Plan: Mr. Terry is a 25 year-old male with hx of inappropriate sexual behaviors, explosive behaviors, I suspect intellectual disability.Further collateral information from mother indicate that pt has had some degree of paranoia, appeared to hear voices for a long time (since he was 17 or 18) but did not have formal psychiatric treatment. He appears to have minimal to no understanding as to why his behaviors are concerning to others. He does not report overt delusional content and minimizes events leading to this admission. PLAN: 1. Admit to M5 2. Switched depakote to lithium due to myoclonus like s/e (which pt did not tolerate jerk-like involuntary movement of forearms) and mild elevation LFT. Start lithium 600mg po BID- check lithium level on 09/06 AM. 3. Continue Olanzapine 4. Obtain collateral information- unclear hx of psychosis, timeline. 5. Aftercare planning. 09/05/21: Continue current regime today. 09/05/21: note put in EMR per restraint protocol. 09/06/21: No changes to the above plans 09/07/21: No changes I spent minutes with the patient and/or on the patient floor today, greater than?50% of which was spent counseling/coordinating care. Patient educated on: medication risk/benefits Informed Consent: does not understand Reason for contiued inpatient stay Substantial Risk for: harm to others and rapid decompensation
[2021-09-08 05:35] VITALS: BP 130/81; PULSE 78; TEMP 36.2; O2SAT 99
[2021-09-08] MEDS: Lithium Carbonate 300 MG CAPSULE 600 MG PO ×2 (08:21→20:18)
[2021-09-08] MEDS: OLANZapine 10 MG TABLET 20 MG PO ×2 (08:21→20:18)
--- NOTE | 2021-09-08 10:45 | P.PNPSI_ITS ---
Subjective Subjective Date of Service: 09/08/21 Reason For Visit: Schizoaffective Disorder, bipolar type Subjective Notes: Conditional Voluntary Interim History: James appears calmer, he reports he had a good weekend. He asks if he can go home today. Per nursing, pt has not been explosive, not inappropriate with peers. Pt denies AH/VH, however, it started laughing inappropriately while meeting and when asked couldn't explain the reason behind it. He reports he does not think he needs medications, although he does note that he is calmer. He denies SI/HI. Limited insight as to why he is in hospital and poor historian. Review of Systems Reports behavioral changes Psychiatric: Reports anxiety, Reports behavioral changes, Reports difficulty concentrating, Reports anhedonia, Reports paranoia and Reports hallucinations Mental Status Exam Mental Status Exam Narrative: Appearance: casually groomed, fair hygiene, restless Behavior: overly familiar, poor boundaries psychomotor:increasingly more agitated and labile Speech:clear, regular rate/rhythm/volume, spontaneous Thought process:tangential at times, some derailment Thought content:no overt psychosis, wanting to go home Mood: fine Affect: expansive SI:none HI:none VH/AH: appears to be responding to internal stimuli but denies AH/VH. Delusions:hypersexual behaviors- ? if misinterpreting females interactions as females flirting or soliciting sexual interactions with him. Pt reports some parnaoia towards neighbors Insight/judgment:impaired x 2. Memory/cog: alert, do suspect underlying intellectual disability Diagnostics Vital Signs (24Hr): Vital Signs - 24 hr 09/07/21 17:50 09/07/21 18:00 09/08/21 05:35 Temperature 96.6 F L 96.6 F L 97.2 F Pulse Rate 79 79 78 Respiratory Rate 16 16 Blood Pressure 141/74 H 141/74 H 130/81 Pulse Oximetry 100 100 99 Body Mass Index 31.8 Labs Results: 09/01/21 13:16 09/01/21 13:16 Medications Medications Current Medications Acetaminophen (Acetaminophen 325 Mg Tablet) 650 mg PO Q6H PRN PRN Reason: Headache/Pain Mild Scale (1-3) Al Hydroxide/Mg Hydroxide (Magnesium Hydrox/Alum Hydrox 30 Ml Oral.Susp) 30 ml PO Q6H PRN PRN Reason: Heartburn/Nausea Haloperidol (Haloperidol 5 Mg Tablet) 5 mg PO Q4H PRN PRN Reason: agitation, psychosis Last Admin: 09/06/21 17:05 Dose: 5 mg Documented by: Hydroxyzine HCl (Hydroxyzine Hcl 25 Mg Tablet) 25 mg PO BEDTIME PRN PRN Reason: Anxiety Last Admin: 09/02/21 20:18 Dose: 25 mg Documented by: [place] Carbonate ([place] Carbonate 300 Mg Capsule) 600 mg PO BID [facility] Last Admin: 09/08/21 08:21 Dose: 600 mg Documented by: Lorazepam (Lorazepam 1 Mg Tablet) 1 mg PO Q6H PRN PRN Reason: anxiety/agitation Last Admin: 09/06/21 17:05 Dose: 1 mg Documented by: Magnesium Hydroxide (Milk Of Magnesia 30 Ml Oral.Susp) 30 ml PO DAILY PRN PRN Reason: Constipation Nicotine Polacrilex (Nicotine Polacrilex 2 Mg Gum) 2 mg BUCCAL Q2H PRN PRN Reason: Nicotine Cravings Last Admin: 09/07/21 19:19 Dose: 2 mg Documented by: Olanzapine (Olanzapine 10 Mg Tablet) 20 mg PO BID [facility] Last Admin: 09/08/21 08:21 Dose: 20 mg Documented by: Trazodone HCl (Trazodone Hcl 50 Mg Tablet) 50 mg PO BEDTIME PRN PRN Reason: Insomnia Last Admin: 09/02/21 20:18 Dose: 50 mg Documented by: Allergies Allergies Allergy/AdvReac Type Severity Reaction Status Date / Time No Known Allergies Allergy Verified 08/20/21 22:18 Assessment & Plan Assessment & Plan (1) Schizoaffective disorder, bipolar type: Status: Acute Code(s): F25.0 - Schizoaffective disorder, bipolar type Assessment and Plan: Mr. Terry is a 25 year-old male with hx of inappropriate sexual behaviors, explosive behaviors, I suspect intellectual disability.Further collateral information from mother indicate that pt has had some degree of paranoia, appeared to hear voices for a long time (since he was 17 or 18) but did not have formal psychiatric treatment. He appears to have minimal to no understanding as to why his behaviors are concerning to others. He does not report overt delusional content and minimizes events leading to this admission. PLAN: 1. Admit to 2. Switched depakote to lithium due to myoclonus like s/e (which pt did not tolerate jerk-like involuntary movement of forearms) and mild elevation LFT. Start lithium 600mg po BID- check lithium level on 09/06 AM. 3. Continue Olanzapine 4. Obtain collateral information- 5. Aftercare planning. 09/05/21: Continue current regime today. 09/05/21: note put in EMR per restraint protocol. 09/06/21: No changes to the above plans 09/07/21: No changes 09/08: continue current medications. I spent minutes with the patient and/or on the patient floor today, g reater than?50% of which was spent counseling/coordinating care. Reason for contiued inpatient stay Substantial Risk for: harm to others and inability to function
[2021-09-08] MEDS: LORazepam 1 MG TABLET PO (14:55)
[2021-09-08 18:00] VITALS: BP 134/80; PULSE 71; TEMP 36.2; O2SAT 99
[2021-09-08] MEDS: Nicotine Polacrilex 2 MG GUM BUCCAL (19:14)
[2021-09-09] MEDS: OLANZapine 10 MG TABLET 20 MG PO ×2 (08:15→20:08)
[2021-09-09] MEDS: Lithium Carbonate 300 MG CAPSULE 600 MG PO ×2 (08:15→20:08)
[2021-09-09 08:52] LABS: Alanine Aminotransferase 43 U/L (0-40); Aspartate Amino Transferase 26 U/L (5-37); Blood Urea Nitrogen 15 mg/dL (9-16); Creatinine Clr Calc Pharmacy 123.5; Estimated Glomerular Filt Rate > 60
[2021-09-09 09:04] LABS: TSH reflex Free T4 1.52 uIU/mL (0.32-4.0)
[2021-09-09 09:06] VITALS: BP 137/80; PULSE 67; TEMP 35.7; O2SAT 99
[2021-09-09] MEDS: Nicotine Polacrilex 2 MG GUM BUCCAL ×3 (09:26→19:14)
[2021-09-09 09:45] LABS: Albumin Level 4.2 g/dL (3.5-5.0); Alkaline Phosphatase 58 U/L (39-117); Anion Gap 10 (12-20); Bilirubin Total 0.8 mg/dL (0.0-1.0); Calcium 9.6 mg/dL (8.4-10.2); Carbon Dioxide 34 mmol/L (22-29); Chloride 101 mmol/L (96-108); Glucose Random 93 mg/dL (60-115); Potassium 4.3 mmol/L (3.3-5.1); Sodium 141 mmol/L (135-145)
--- NOTE | 2021-09-09 11:34 | HO.PSYCHPN ---
Subjective Subjective Date of Service: 09/09/21 Reason For Visit: Schizoaffective Disorder, bipolar type Subjective Notes: Conditional Voluntary Interim History: Per nursing, pt has been visible in the unit, social with select peers, no innapropriate behaviors noted nor explosive behaviors. Pt is taking medications as prescribed. He denies hearing voices, which he has done in the past but this time he does not present as internally preoccupied. He denies SI/HI. Limited insight as to concerns that brought him to the hospital. Medication Compliance: Yes Side effects from medications: No Attending Groups: Intermittent Review of Systems Reports behavioral changes Psychiatric: Reports anxiety, Reports behavioral changes, Reports difficulty concentrating, Reports anhedonia, Reports paranoia and Reports hallucinations Mental Status Exam Mental Status Exam Narrative: Appearance: casually groomed, fair hygiene, in NAD Behavior: overly familiar, but better self control psychomotor: no agitation or retardation noted Speech:clear, regular rate/rhythm/volume, spontaneous Thought process:tangential at times, some derailment Thought content:no overt psychosis, wanting to go home Mood: fine Affect: less expansive SI:none HI:none VH/AH: less appears to be responding to internal stimuli but denies AH/VH. Delusions:no overt delusional content disclose Insight/judgment:improving x 2. Memory/cog: alert, do suspect underlying intellectual disability. Diagnostics Vital Signs (24Hr): Vital Signs - 24 hr 09/09/21 19:15 Temperature 97.9 F Pulse Rate 85 Blood Pressure 126/70 Body Mass Index 31.8 Labs Results: 09/01/21 13:16 09/09/21 07:59 Labs: Laboratory Results - last 48 hr 09/09/21 09/09/21 09/09/21 07:59 07:59 07:59 Sodium 141 Potassium 4.3 Chloride 101 Carbon Dioxide 34 H Anion Gap 10 L BUN 15 Creatinine 1.04 Estim Creat Clear Calc 123.5 Estimated GFR > 60 Random Glucose 93 Calcium 9.6 Total Bilirubin 0.8 AST 26 ALT 43 H Alkaline Phosphatase 58 Total Protein 7.0 Albumin 4.2 TSH 1.52 [place] 0.70 Medications Medications Current Medications Acetaminophen (Acetaminophen 325 Mg Tablet) 650 mg PO Q6H PRN PRN Reason: Headache/Pain Mild Scale (1-3) Al Hydroxide/Mg Hydroxide (Magnesium Hydrox/Alum Hydrox 30 Ml Oral.Susp) 30 ml PO Q6H PRN PRN Reason: Heartburn/Nausea Haloperidol (Haloperidol 5 Mg Tablet) 5 mg PO Q4H PRN PRN Reason: agitation, psychosis Last Admin: 09/06/21 17:05 Dose: 5 mg Documented by: Hydroxyzine HCl (Hydroxyzine Hcl 25 Mg Tablet) 25 mg PO BEDTIME PRN PRN Reason: Anxiety Last Admin: 09/02/21 20:18 Dose: 25 mg Documented by: [place] Carbonate ([place] Carbonate 300 Mg Capsule) 600 mg PO BID [facility] Last Admin: 09/10/21 08:17 Dose: 600 mg Documented by: Lorazepam (Lorazepam 1 Mg Tablet) 1 mg PO Q6H PRN PRN Reason: anxiety/agitation Last Admin: 09/08/21 14:55 Dose: 1 mg Documented by: Magnesium Hydroxide (Milk Of Magnesia 30 Ml Oral.Susp) 30 ml PO DAILY PRN PRN Reason: Constipation Nicotine Polacrilex (Nicotine Polacrilex 2 Mg Gum) 2 mg BUCCAL Q2H PRN PRN Reason: Nicotine Cravings Last Admin: 09/09/21 19:14 Dose: 2 mg Documented by: Olanzapine (Olanzapine 10 Mg Tablet) 20 mg PO BID [facility] Last Admin: 09/10/21 08:16 Dose: 20 mg Documented by: Trazodone HCl (Trazodone Hcl 50 Mg Tablet) 50 mg PO BEDTIME PRN PRN Reason: Insomnia Last Admin: 09/02/21 20:18 Dose: 50 mg Documented by: Allergies Allergies Allergy/AdvReac Type Severity Reaction Status Date / Time No Known Allergies Allergy Verified 08/20/21 22:18 Assessment & Plan Assessment & Plan (1) Schizoaffective disorder, bipolar type: Status: Acute Code(s): F25.0 - Schizoaffective disorder, bipolar type Assessment and Plan: Mr. Terry is a 25 year-old male with hx of inappropriate sexual behaviors, explosive behaviors, I suspect intellectual disability.Further collateral information from mother indicate that pt has had some degree of paranoia, appeared to hear voices for a long time (since he was 17 or 18) but did not have formal psychiatric treatment. He appears to have minimal to no understanding as to why his behaviors are concerning to others. He does not report overt delusional content and minimizes events leading to this admission. PLAN: 1. Admit to 2. Switched depakote to lithium due to myoclonus like s/e (which pt did not tolerate jerk-like involuntary movement of forearms) and mild elevation LFT. Start lithium 600mg po BID- check lithium level on 09/06 AM. 3. Continue Olanzapine 4. Obtain collateral information- 5. Aftercare planning. 09/05/21: Continue current regime today. 09/05/21: note put in EMR per restraint protocol. 09/06/21: No changes to the above plans 09/07/21: No changes 09/08: continue current medications. I spent minutes with the patient and/or on the patient floor today, greater than?50% of which was spent counseling/coordinating care. Reason for contiued inpatient stay Substantial Risk for: harm to others and inability to function
[2021-09-09 19:15] VITALS: BP 126/70; PULSE 85; TEMP 36.6
[2021-09-10] MEDS: OLANZapine 10 MG TABLET 20 MG PO ×2 (08:16→20:22)
[2021-09-10] MEDS: Lithium Carbonate 300 MG CAPSULE 600 MG PO ×2 (08:17→20:22)
--- NOTE | 2021-09-10 13:22 | HO.PSYCHPN ---
Subjective Subjective Date of Service: 09/10/21 Reason For Visit: Schizoaffective Disorder, bipolar type Interim History: Per nursing, pt continues to present as calm, pleasant on approach. Pt has been visible in the unit, social with select peers, no inappropriate behaviors noted (sexual comments to female staff or peers or poor boundaries) nor explosive behaviors. Pt is taking medications as prescribed. He denies hearing voices, which he has done in the past but this time he does not present as internally preoccupied. He denies SI/HI. Limited insight as to concerns that brought him to the hospital. Mother came to visit pt on 09/09- mother reports pt appears much calmer, less paranoid and irritable. Review of Systems Reports behavioral changes Psychiatric: Reports anxiety, Reports behavioral changes, Reports difficulty concentrating, Reports anhedonia, Reports paranoia and Reports hallucinations Mental Status Exam Mental Status Exam Narrative: Appearance: casually groomed, fair hygiene, in NAD Behavior: overly familiar, but better self control psychomotor: no agitation or retardation noted Speech:clear, regular rate/rhythm/volume, spontaneous Thought process:tangential at times, some derailment Thought content:no overt psychosis, wanting to go home Mood: fine Affect: less expansive SI:none HI:none VH/AH: less appears to be responding to internal stimuli but denies AH/VH. Delusions:no overt delusional content disclose Insight/judgment:improving x 2. Memory/cog: alert, do suspect underlying intellectual disability. Diagnostics Vital Signs (24Hr): Vital Signs - 24 hr 09/09/21 19:15 Temperature 97.9 F Pulse Rate 85 Blood Pressure 126/70 Body Mass Index 31.8 Labs Results: 09/01/21 13:16 09/09/21 07:59 Labs: Laboratory Results - last 48 hr 09/09/21 09/09/21 09/09/21 07:59 07:59 07:59 Sodium 141 Potassium 4.3 Chloride 101 Carbon Dioxide 34 H Anion Gap 10 L BUN 15 Creatinine 1.04 Estim Creat Clear Calc 123.5 Estimated GFR > 60 Random Glucose 93 Calcium 9.6 Total Bilirubin 0.8 AST 26 ALT 43 H Alkaline Phosphatase 58 Total Protein 7.0 Albumin 4.2 TSH 1.52 [place] 0.70 Medications Medications Current Medications Acetaminophen (Acetaminophen 325 Mg Tablet) 650 mg PO Q6H PRN PRN Reason: Headache/Pain Mild Scale (1-3) Al Hydroxide/Mg Hydroxide (Magnesium Hydrox/Alum Hydrox 30 Ml Oral.Susp) 30 ml PO Q6H PRN PRN Reason: Heartburn/Nausea Haloperidol (Haloperidol 5 Mg Tablet) 5 mg PO Q4H PRN PRN Reason: agitation, psychosis Last Admin: 09/06/21 17:05 Dose: 5 mg Documented by: Hydroxyzine HCl (Hydroxyzine Hcl 25 Mg Tablet) 25 mg PO BEDTIME PRN PRN Reason: Anxiety Last Admin: 09/02/21 20:18 Dose: 25 mg Documented by: [place] Carbonate ([place] Carbonate 300 Mg Capsule) 600 mg PO BID [facility] Last Admin: 09/10/21 08:17 Dose: 600 mg Documented by: Lorazepam (Lorazepam 1 Mg Tablet) 1 mg PO Q6H PRN PRN Reason: anxiety/agitation Last Admin: 09/08/21 14:55 Dose: 1 mg Documented by: Magnesium Hydroxide (Milk Of Magnesia 30 Ml Oral.Susp) 30 ml PO DAILY PRN PRN Reason: Constipation Nicotine Polacrilex (Nicotine Polacrilex 2 Mg Gum) 2 mg BUCCAL Q2H PRN PRN Reason: Nicotine Cravings Last Admin: 09/10/21 14:42 Dose: 2 mg Documented by: Olanzapine (Olanzapine 10 Mg Tablet) 20 mg PO BID [facility] Last Admin: 09/10/21 08:16 Dose: 20 mg Documented by: Trazodone HCl (Trazodone Hcl 50 Mg Tablet) 50 mg PO BEDTIME PRN PRN Reason: Insomnia Last Admin: 09/02/21 20:18 Dose: 50 mg Documented by: Allergies Allergies Allergy/AdvReac Type Severity Reaction Status Date / Time No Known Allergies Allergy Verified 08/20/21 22:18 Assessment & Plan Assessment & Plan (1) Schizoaffective disorder, bipolar type: Status: Acute Code(s): F25.0 - Schizoaffective disorder, bipolar type Assessment and Plan: Mr. Terry is a 25 year-old male with hx of inappropriate sexual behaviors, explosive behaviors, I suspect intellectual disability.Further collateral information from mother indicate that pt has had some degree of paranoia, appeared to hear voices for a long time (since he was 17 or 18) but did not have formal psychiatric treatment. He appears to have minimal to no understanding as to why his behaviors are concerning to others. He does not report overt delusional content and minimizes events leading to this admission. PLAN: 1. Admit to [facility] 2. Switched depakote to lithium due to myoclonus like s/e (which pt did not tolerate jerk-like involuntary movement of forearms) and mild elevation LFT. Start lithium 600mg po BID- check lithium level on 09/06 AM. 3. Continue Olanzapine 4. Obtain collateral information- 5. Aftercare planning. 09/05/21: Continue current regime today. 09/05/21: note put in EMR per restraint protocol. 09/06/21: No changes to the above plans 09/07/21: No changes 09/08: continue current medications. I spent minutes with the patient and/or on the patient floor today, greater than?50% of which was spent counseling/coordinating care. Reason for contiued inpatient stay Substantial Risk for: rapid decompensation
[2021-09-10] MEDS: Nicotine Polacrilex 2 MG GUM BUCCAL (14:42)
[2021-09-10 18:00] VITALS: PULSE 100; RESP 15; TEMP 36.9; O2SAT 97
[2021-09-11] MEDS: OLANZapine 10 MG TABLET 20 MG PO ×2 (08:41→20:22)
[2021-09-11] MEDS: Lithium Carbonate 300 MG CAPSULE 600 MG PO ×2 (08:41→20:21)
[2021-09-11 08:56] VITALS: BP 141/81; PULSE 64; TEMP 35.8; O2SAT 100
[2021-09-11] MEDS: Nicotine Polacrilex 2 MG GUM BUCCAL ×2 (09:38→15:18)
--- NOTE | 2021-09-11 10:32 | HO.PSYCHPN ---
Subjective Subjective Date of Service: 09/12/21 Reason For Visit: Schizoaffective Disorder, bipolar type Subjective Notes: Conditional Voluntary Interim History: Per nursing, pt continues to present as calm, pleasant on approach. Pt has been visible in the unit, social with select peers, no inappropriate behaviors noted (sexual comments to female staff or peers or poor boundaries) nor explosive behaviors. Pt is taking medications as prescribed. He denies hearing voices, which he has done in the past but this time he does not present as internally preoccupied. He denies SI/HI. Limited insight as to concerns that brought him to the hospital. Mother came to visit pt on 09/09- mother reports pt appears much calmer, less paranoid and irritable. Medication Compliance: Yes Side effects from medications: No Review of Systems Reports behavioral changes Psychiatric: Reports anxiety, Reports behavioral changes, Reports difficulty concentrating, Reports anhedonia, Reports paranoia and Reports hallucinations Mental Status Exam Mental Status Exam Narrative: Appearance: casually groomed, fair hygiene, in NAD Behavior: overly familiar, but better self control psychomotor: no agitation or retardation noted Speech:clear, regular rate/rhythm/volume, spontaneous Thought process:tangential at times, some derailment Thought content:no overt psychosis, wanting to go home Mood: fine Affect: less expansive SI:none HI:none VH/AH: less appears to be responding to internal stimuli but denies AH/VH. Delusions:no overt delusional content disclose Insight/judgment:improving x 2. Memory/cog: alert, do suspect underlying intellectual disability. Diagnostics Vital Signs (24Hr): Vital Signs - 24 hr 09/11/21 20:25 Temperature 98.8 F Pulse Rate 80 Blood Pressure 120/75 Body Mass Index 31.8 Labs Results: 09/01/21 13:16 09/09/21 07:59 Medications Medications Current Medications Acetaminophen (Acetaminophen 325 Mg Tablet) 650 mg PO Q6H PRN PRN Reason: Headache/Pain Mild Scale (1-3) Al Hydroxide/Mg Hydroxide (Magnesium Hydrox/Alum Hydrox 30 Ml Oral.Susp) 30 ml PO Q6H PRN PRN Reason: Heartburn/Nausea Haloperidol (Haloperidol 5 Mg Tablet) 5 mg PO Q4H PRN PRN Reason: agitation, psychosis Last Admin: 09/06/21 17:05 Dose: 5 mg Documented by: Hydroxyzine HCl (Hydroxyzine Hcl 25 Mg Tablet) 25 mg PO BEDTIME PRN PRN Reason: Anxiety Last Admin: 09/02/21 20:18 Dose: 25 mg Documented by: [place] Carbonate ([place] Carbonate 300 Mg Capsule) 600 mg PO BID [facility] Last Admin: 09/12/21 08:51 Dose: 600 mg Documented by: Lorazepam (Lorazepam 1 Mg Tablet) 1 mg PO Q6H PRN PRN Reason: anxiety/agitation Last Admin: 09/08/21 14:55 Dose: 1 mg Documented by: Magnesium Hydroxide (Milk Of Magnesia 30 Ml Oral.Susp) 30 ml PO DAILY PRN PRN Reason: Constipation Nicotine Polacrilex (Nicotine Polacrilex 2 Mg Gum) 2 mg BUCC[place] Q2H PRN PRN Reason: Nicotine Cravings Last Admin: 09/11/21 15:18 Dose: 2 mg Documented by: Olanzapine (Olanzapine 10 Mg Tablet) 20 mg PO BID [facility] Last Admin: 09/12/21 08:52 Dose: 20 mg Documented by: Trazodone HCl (Trazodone Hcl 50 Mg Tablet) 50 mg PO BEDTIME PRN PRN Reason: Insomnia Last Admin: 09/02/21 20:18 Dose: 50 mg Documented by: Allergies Allergies Allergy/AdvReac Type Severity Reaction Status Date / Time No Known Allergies Allergy Verified 08/20/21 22:18 Assessment & Plan Assessment & Plan (1) Schizoaffective disorder, bipolar type: Status: Acute Code(s): F25.0 - Schizoaffective disorder, bipolar type Assessment and Plan: Mr. Terry is a 25 year-old male with hx of inappropriate sexual behaviors, explosive behaviors, I suspect intellectual disability.Further collateral information from mother indicate that pt has had some degree of paranoia, appeared to hear voices for a long time (since he was 17 or 18) but did not have formal psychiatric treatment. He appears to have minimal to no understanding as to why his behaviors are concerning to others. He does not report overt delusional content and minimizes events leading to this admission. PLAN: 1. Admit to [facility]5 2. Switched depakote to lithium due to myoclonus like s/e (which pt did not tolerate jerk-like involuntary movement of forearms) and mild elevation LFT. Start lithium 600mg po BID- check lithium level on 09/06 AM. 3. Continue Olanzapine 4. Obtain collateral information- 5. Aftercare planning. 09/05/21: Continue current regime today. 09/05/21: note put in EMR per restraint protocol. 09/06/21: No changes to the above plans 09/07/21: No changes 09/08: continue current medications. I spent minutes with the patient and/or on the patient floor today, greater than?50% of which was spent counseling/coordinating care. Reason for contiued inpatient stay Substantial Risk for: stable for discharge
[2021-09-11 20:25] VITALS: BP 120/75; PULSE 80; TEMP 37.1
[2021-09-12] MEDS: Lithium Carbonate 300 MG CAPSULE 600 MG PO (08:51)
[2021-09-12] MEDS: OLANZapine 10 MG TABLET 20 MG PO (08:52)
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
== END 2021-09-12 11:20 | disposition home or self-care (01) | DRG 750 ==
LOC: HO.ED 15:01 → HO.PM5 09-01 16:24
PROVIDERS: Clinical Nurse Specialist Psychiatric/Mental Health, Adult; Physician Assistant; Admitting Provider Psychiatry & Neurology Psychiatry; Emergency Provider Emergency Medicine Emergency Medical Services; Visit Provider Social Worker
DX: F25.0 Schizoaffective disorder, bipolar type (principal); F79 Unspecified intellectual disabilities; F17.210 Nicotine dependence, cigarettes, uncomplicated; Z91.14 Patient's other noncompliance with medication regimen; Z71.6 Tobacco abuse counseling; Z20.822 Contact with and (suspected) exposure to COVID-19; Z79.899 Other long term (current) drug therapy
CPT/HCPCS: 36415; 80053; 80061; 80164; 80178; 80307; 82607; 82746; 83036; 84439; 84443; 85025; 86704; 86706; 86709; 86803; 87340; 87635; 93005; 96372; 99285; J2060

== ENCOUNTER 2022-07-17 09:49 | Outpatient (REF) | payer OTHER, SELFPAY ==
[2022-07-17 11:02] LABS: Lithium 0.47 mmol/L (0.60-1.20)
[2022-07-17 11:07] LABS: Estimated Average Glucose 100 mg/dL; Hemoglobin A1c % 5.1 %
[2022-07-17 11:19] LABS: Anion Gap 14 (12-20); Blood Urea Nitrogen 11 mg/dL (9-16); Calcium 9.5 mg/dL (8.4-10.2); Carbon Dioxide 27 mmol/L (22-29); Chloride 103 mmol/L (96-108); Cholesterol 230 mg/dL; Estimated Glomerular Filt Rate > 60; Glucose Random 100 mg/dL (60-115); HDL Cholesterol 38 mg/dL; LDL Cholesterol Calculated 165 mg/dl; Potassium 4.3 mmol/L (3.3-5.1); Sodium 140 mmol/L (135-145); Triglycerides 139 mg/dL
[2022-07-17 11:30] LABS: Thyroid Stimulating Hormone 2.44 uIU/mL (0.32-4.0)
== END 2022-07-17 09:50 | disposition home or self-care (01) ==
LOC: HO.LAB 09:49
PROVIDERS: Visit Provider Nurse Practitioner Psychiatric/Mental Health
DX: Z79.899 Other long term (current) drug therapy (principal)
CPT/HCPCS: 36415; 80048; 80061; 80178; 83036; 84443

== ENCOUNTER 2023-12-03 10:52 | Outpatient (REF) | payer MEDICARE, SELFPAY ==
[2023-12-03 11:07] LABS: MANUAL DIFF FLAG NO
[2023-12-03 11:13] LABS: Basophils Percent Auto 0.2 % (0-2); Eosinophils Absolute Auto 0.2 X10*3/uL (0.0-0.4); Eosinophils Percent Auto 2.1 % (0-4); Hematocrit 48.2 % (42.0-52.0); Hemoglobin 15.4 g/dl (14.0-18.0); Imm Gran Abs Auto 0.05 X10*3/uL (0.00-0.03); Imm Gran Pct Auto 0.5 % (0.0-0.4); Lymphocytes Absolute Auto 2.4 X10*3/uL (1.2-4.9); Lymphocytes Percent Auto 26.4 % (20-40); Mean Corpuscular Hemoglobin 28.6 pg (27.0-33.0); Mean Corpuscular Volume 89.4 fL (80.0-98.0); Mean Platelet Volume 10.1 fL (9.4-12.4); Monocytes Absolute Auto 0.6 X10*3/uL (0.1-1.2); Monocytes Percent Auto 6.9 % (2-11); Neutrophils Absolute Auto 5.9 x10*3/uL (2.0-8.3); Neutrophils Percent Auto 63.9 % (45-73); Platelet Count 324 X10*3/uL (160-400); Red Blood Count 5.39 X10*6/uL (4.60-5.80); Red Cell Distribution Width 12.9 % (11.0-16.0); White Blood Count 9.2 X10*3/uL (4.8-10.8)
[2023-12-03 11:37] LABS: Estimated Average Glucose 105 mg/dL; Hemoglobin A1c % 5.3 % (<6.0)
[2023-12-03 12:54] LABS: Alanine Aminotransferase 44 U/L (0-40); Albumin Level 4.3 g/dL (3.5-5.0); Alkaline Phosphatase 104 U/L (39-117); Anion Gap 13 (12-20); Aspartate Amino Transferase 30 U/L (5-37); Bilirubin Total 0.4 mg/dL (0.0-1.0); Blood Urea Nitrogen 8 mg/dL (9-16); Calcium 9.5 mg/dL (8.4-10.2); Carbon Dioxide 28 mmol/L (22-29); Chloride 104 mmol/L (96-108); Cholesterol 251 mg/dL (<200); Estimated Glomerular Filt Rate > 60; Glucose Fasting 98 mg/dL (60-99); HDL Cholesterol 37 mg/dL (>40); LDL Cholesterol Calculated 187 mg/dL (<100); Potassium 3.9 mmol/L (3.3-5.1); Sodium 141 mmol/L (135-145); Total Protein 7.9 g/dL (6.5-8.0); Triglycerides 139 mg/dL (<150)
[2023-12-03 13:23] LABS: Free T4 (Free Thyroxine) 0.99 ng/dL (0.71-1.85); Thyroid Stimulating Hormone 1.18 uIU/mL (0.32-4.0)
== END 2023-12-03 10:53 | disposition home or self-care (01) ==
LOC: HO.LAB 10:52
PROVIDERS: PCP Internal Medicine; Visit Provider Nurse Practitioner Psychiatric/Mental Health
DX: F25.0 Schizoaffective disorder, bipolar type (principal); F63.81 Intermittent explosive disorder; Z79.899 Other long term (current) drug therapy
CPT/HCPCS: 36415; 80053; 80061; 80178; 83036; 84439; 84443; 85025

== ENCOUNTER 2025-01-04 06:48 | Emergency (ER) | payer MEDICARE, MEDICAID, SELFPAY ==
[2025-01-04 06:52] VITALS: BP 147/74; PULSE 72; RESP 20; TEMP 36; O2SAT 97; BMI 43.0
[2025-01-04 07:38] LABS: COVID-19 Test Negative (Negative); IDNOW Serial# 6674DD1D
[2025-01-04 13:30] VITALS: BP 142/86; PULSE 81; RESP 18; TEMP 36.6; O2SAT 96
--- OUTSIDE RECORDS SUMMARY | 2025-01-04 14:26 | XMS_ITS | Clinical Summary ---
Author Organization [facility] Address [address] [place] [address] Care Team Providers Care Director Of Restaurant Name Role Phone Rey Donaldson MD Primary Care Provider [phone] Source Comments PLEASE NOTE, if this patient is a minor, it may be UNLAWFUL to discuss sensitive information that is contained in these records (such as FAMILY PLANNING, MENTAL HEALTH or SUBSTANCE ABUSE) with the minor patient's parent or other person without the patient's specific authorization.[facility] Allergies No known active allergies Medications lithium carbonate 600 mg capsuleIndicatio ns:Anxiety and depression Take 600 mg by mouth 2 (two) times daily 08/01/2022 Active OLANZapine (ZYPREXA) 20 mg tabletIndication s:Anxiety and depression Take 20 mg by mouth nightly at bedtime 08/01/2022 Active traZODone (DESYREL) 50 mg tabletIndication s:Anxiety and depression Take 50 mg by mouth nightly at bedtime 08/01/2022 Active FLUoxetine (PROZAC) 20 mg capsule Take 20 mg by mouth every morning 11/27/2022 Active atorvastatin (LIPITOR) 20 mg tabletIndication s:Elevated LDL cholesterol level Take 1 Tablet by mouth nightly at bedtime 90 Tablet 1 11/21/2024 Active Active Problems Problem Noted Date Diagnosed Date Prediabetes 11/21/2024 Elevated LDL cholesterol level 09/09/2022 Anxiety and depression 09/04/2022 Overview (09/04/2022): Sees Lavinia Simco Class 2 obesity due to exces s calories without serious comorbidity with body mass index (BMI) of 39.0 to 39.9 in adult 09/04/2022 Encounters Date Type Department Care Team Description 12/15/2024 1:40 PM EST Office Visit [facility] [address] [place] [phone] Rey Donaldson MD Elevated LDL cholesterol level (Primary Dx); Prediabetes; Encounter for drug screening; Immunization due; Health care maintenance 11/21/2024 Interim Notes [facility] [address] [place] [address] Rey Donaldson MD Elevated LDL cholesterol level (Primary Dx) from Last 3 Months Immunizations Name Administration Dates Next Due DTAP 06/28/2002, 1,08/12/1998,06/05,04/05/1998 Flu, Preservative Free 08/19/2023,09/04/2022 HEP B, PED/ADOL 08/12/1998,04/05/1998,1997 HPV 9 (Gardasil) 02/08/2023 HPV, QUADRIVALENT 04/22/2023 Hep B,adult,adjuvanted (HEPLISAV) 09/21/2023 Hib (PRP-T) 08/12/1998,06/05/1998,04/05/1998 INFLUENZA, SEASONAL, INJECTABLE 11/20/2015 IPV 06/28/2002,03/08/2001 Influenza (FLUBLOK),recombinant,injectable,prese rvative Free 12/15/2024 MENINGOCOCCAL MCV4P (MENACTRA) 11/20/2015,2008 MMR (MMR II/Priorix) 06/28/2002,11/14/1998 MODERNA COVID-19 VACCINE BIV ALENT, BLUE CAP, 6M+ 09/04/2022 Moderna COVID-19 (Spikevax), Mrna, Lnp-s, Pf, 50 Mcg/0.5 Ml, 12yr+ 12/15/2024 OPV, Trivalent 06/05/1998,04/05/1998 TDAP 02/08/2023,05/15/2009 Varicella, Live Vaccine 08/19/2023,06/14/1999 Social History Tobacco Use Types Packs/Day Years Used Date Smoking Tobacco: Every Day Cigarettes Passive Smoke Exposure: Never Smokeless Tobacco: Never Tobacco Cessation:Ready to Q uit: No; Counseling Given: Yes Comments:2 a day Alcohol Use Standard Drinks/Week Comments Yes 0 (1 standard drink = 0.6 oz pur e alcohol) socially Social Connections Answer Date Recorded Connectedness 0 07/29/2024 Financial Resource Strain Answer Date R ecorded Financial Resource Strain 0 2021 Stress Answer Date Recorded Stress 0 09/04/2022 Physical Activity Answer Date Recorded Physical Activity 0 09/04/2022 Food Insecurity Answer Date Recorded Food 0 08/10/2024 Transportation Needs Answer Date Record ed Transportation 0 09/04/2022 Housing Stability Answer Date Recorded Housing 0 09/04/2022 Safety and Environment Answer Date Isael rded Safety 0 09/04/2022 Utilities Answer Date Recorded Utilities 0 09/04/2022 Employment Answer Date Recorded Stress 0 07/29/2024 Sex and Gender Information Value Date Recorded Sex Assigned at Male 09/04/2022 12:51 PM PDT Legal Sex Male 8:41 AM PDT Gender Identity Male 09/04/2022 12:51 PM PDT Sexual Orientation Straight 09/04/2022 1: 00 PM PDT Last Filed Vital Signs Vital Sign Reading Time Taken Comments Blood Pressure 120/80 12/15/2024 1:18 PM EST Pulse 96 12/15/2024 1:18 PM EST Temperature 36.5 ??C (97.7 ??F) 12/15/2024 1:18 PM ES T Respiratory Rate 16 12/15/2024 1:18 PM EST Oxygen Saturation 98% 12/15/2024 1:18 PM EST Inhaled Oxygen Concentration - - Weight 147 kg (324 lb) 12/15/2024 1:18 PM EST Height 175.3 cm (5' 9 ) 12/15/2024 1:18 PM EST Body Mass Index 47.85 12/15/2024 1:18 PM EST Plan of Treatment Health Maintenance Due Date Last Done Comments Medicare Annual Wellness Visit 2015 Depression Monitoring 03/14/2025 12/15/2024 , 05/25/2024, 08/19/2023, Additional history exists Diabetes Screening 11/20/2025 11/20/2024, 0 11/20/2024, 02/08/2023, Additional history exists Lipid Screening 11/20/2025 11/20/2024, 03/05/2023, 09/08/2022 Hypertension Screening (#1) 12/15/2025 Tobacco Cessation Counseling (#1) 12/15/2025 024 Imm-DTaP/Tdap/Td (8 - Td or Tdap) 02/08/2033 02/08/2023, 05/15/2009, 06/28/2002, Additional history exists HIV Screening Completed 09/08/2022 Hepatitis C Screening Completed 08/18/2023 , 08/18/2023, 09/08/2022 Imm-Hepatitis B Completed 09/21/2023, 07/17, 04/05/1998, Additional history exists Alcohol and Drug Screen Completed 12/15/19, 02/08/2023, 09/04/2022 [id number] Completed 12/15/2024, 08/16, 10/10/2021, Additional history exists Imm-Influenza Completed 12/15/2024, 03/2023, 09/04/2022, Additional history exists Imm-Pneumococcal Discontinued Procedures Procedure Name Priority Date/Time Associated Diagnosis Comments DRUG MONITORING TEMPLATE Routine 12/15/2024 1:47 PM EST DRUG MONITORING, PANEL 1, SCREEN, URINE Routine 12/15/2024 1:47 PM EST HEMOGLOBIN GLYCOSYLATED A1C Routine 11/20/2024 11:17 AM EST Routine general medical examination at a health care facility Health care maintenance LIPID PANEL Routine 11/20/2024 11:17 AM EST Routine general medical examination at a health care facility Mixed hyperlipidemia Class 3 severe obesity due to excess calories without serious comorbidity with body mass index (BMI) of 50.0 to 59.9 in adult ([facility]) ASSAY OF THYROID STIMULATING HORMONE TSH Routine 11/20/2024 11:17 AM EST Routine general medical examination at a health care facility Mixed hyperlipidemia Class 3 severe obesity due to excess calories without serious comorbidity with body mass index (BMI) of 50.0 to 59.9 in adult ([facility]) COMPREHENSIVE METABOLIC PANEL Routine 11/20/2024 11:17 AM EST Routine general medical examination at a health care facility Mixed hyperlipidemia Anxiety and depression Class 3 severe obesity due to excess calories without serious comorbidity with body mass index (BMI) of 50.0 to 59.9 in adult ([facility]) BLOOD COUNT COMPLETE AUTO&AUTO DIFRNTL WBC Routine 11/20/2024 11:17 AM EST Routine general medical examination at a health care facility Mixed hyperlipidemia HEPATITIS C AB W/RFLX HCV RNA, QT, RT PCR Routine 08/18/2023 1:04 PM EDT Elevated liver enzymes Need for hepatitis B screening test Need for hepatitis C screening test HIV 1/2 AG & AB W/RFLX (4TH GEN) Routine 09/08/2022 9:48 AM EDT Health care maintenance from Last 3 Months or Most Recently Relevant to Health Maintenance Results * DRUG MONITORING TEMPLATE (12/15/2024 1:47 PM EST) Notes and Comments See Note Q [employer] Comment: This drug testing is for medical treatment only. Analysis was performed as non-forensic testing and these results should be used only by healthcare providers to render diagnosis or treatment, or to monitor progress of medical conditions. Note A: The results are presumptive; based only on screening methods, and they have not been confirmed by a definitive method. Healthcare Providers needing Interpretation assistance, please contact us at [phone] ( ) M-F, 8am to 10pm EST 12/15/2024 1:47 PM EST 12/15/2024 1:52 PM EST us Rey Donaldson MD LAB - NO BLOOD DRAW Final Resul t [facility] [address] [address], [employer] [address] [address] * DRUG MONITORING, PANEL 1, SCREEN, URINE (12/15/2024 1:47 PM EST) AMPHETAMINES NEGATIVE <500 [facility] Comment:See Note A BARBITURATES NEGATIVE <300 [facility] Comment:See Note A BENZODIAZEPINES NEGATIVE <100 [facility] [employer] Comment:See Note A COCAINE METABOLITE NEGATIVE <150 [facility] Comment:See Note A MARIJUANA METABOLITE NEGATIVE <20 [facility] Comment:See Note A METHADONE NEGATIVE <100 [facility] Comment:See Note A OPIATES NEGATIVE <100 [facility] Comment:See Note A OXYCODONE NEGATIVE <100 [facility] Comment:See Note A PHENCYCLIDINE NEGATIVE <25 [facility] Comment:See Note A CREATININE >350.0 > or = 20.0 mg/dL [employer] Comment: Verified by repeat analysis. PH 6.9 4.5 - 9.0 [employer] [facility] OXIDANT NEGATIVE <200 [employer] [facility] 12/15/2024 1:47 PM EST 12/15/2024 1:52 PM EST us Rey Donaldson MD LAB - NO BLOOD DRAW Final Resul t [facility] [address] [address], [facility] [address] [place] [address] * (ABNORMAL) BLOOD COUNT COMPLETE AUTO&AUTO DIFRNTL WBC (11/20/2024 11:17 AM EST) [facility] WHITE BLOOD CELL COUNT 8.7 3.8 - 10.8 Thousand/ uL [employer] RED BLOOD CELL COUNT 5.46 4.20 - 5.80 Million/u L [employer] [facility] HEMOGLOBIN 15.7 13.2 - 17.1 g/dL [facility] HEMATOCRIT 49.8 38.5 - 50.0 % [employer] [facility] MCV 91.2 80.0 - 100.0 fL [employer] [facility] MCH 28.8 27.0 - 33.0 pg [employer] [facility] MCHC 31.5(L) 32.0 - 36.0 g/dL [employer] [facility] Comment: For adults, a slight decrease in the calculated MCHC value (in the range of 30 to 32 g/dL) is most likely not clinically significant; however, it should be interpreted with caution in correlation with other red cell parameters and the patient's clinical condition. RDW 12.3 11.0 - 15.0 % [employer] [facility] PLATELET COUNT 313 140 - 400 Thousand/ uL [employer] MPV 11.5 7.5 - 12.5 fL [employer] ABSOLUTE NEUTROPHILS 4,950 1,500 - 7,800 cells/uL [employer] [facility] ABSOLUTE LYMPHOCYTES 2,949 850 - 3,900 cells/uL [employer] ABSOLUTE MONOCYTES 609 200 - 950 cells/uL [facility] ABSOLUTE EOSINOPHILS 174 15 - 500 cells/uL [facility] ABSOLUTE BASOPHILS 17 0 - 200 cells/uL [employer] [place] [employer] NEUTROPHILS PCT 56.9 % [facility] [employer] [place] [employer] LYMPHOCYTES 33.9 % [facility] [employer] MONOCYTES 7.0 % [facility] EOSINOPHILS 2.0 % [facility] [employer] BASOPHILS 0.2 % [employer] DIAG [employer] [facility] Blood Blood / Unknown 11/20/2024 1 1:17 AM EST 11/20/2024 11:18 AM EST Narrative [facility] - 11/21/2024 6:52 AM EST FASTING:YES us Rey Donaldson MD LAB - BLOOD DRAW Edited Result - Final Performing Organization Address City/[facility] de Phone Number [employer] [address] [address], [employer] [address] [address] * ASSAY OF THYROID STIMULATING HORMONE TSH (11/20/2024 11:17 AM EST) TSH 0.97 0.40 - 4.50 mIU/L [employer] [facility] Blood Blood / Unknown 11/20/2024 1 1:17 AM EST 11/20/2024 11:18 AM EST Narrative [facility] [facility] - 11/21/2024 6:52 AM EST FASTING:YES us Rey Donaldson MD LAB - BLOOD DRAW Edited Result - Final [facility] [address] [address], [employer] [address] [address] * (ABNORMAL) HEMOGLOBIN GLYCOSYLATED A1C (11/20/2024 11:17 AM EST) HEMOGLOBIN A1C 5.7(H) <5.7 % of total Hgb [facility] Comment: For someone without known diabetes, a hemoglobin A1c value between 5.7% and 6.4% is consistent with prediabetes and should be confirmed with a follow-up test. For someone with known diabetes, a value <7% indicates that their diabetes is well controlled. A1c targets should be individualized based on duration of diabetes, age, comorbid conditions, and other considerations. This assay result is consistent with an increased risk of diabetes. Currently, no consensus exists regarding use of hemoglobin A1c for diagnosis of diabetes for children. Blood Blood / Unknown 11/20/2024 1 1:17 AM EST 11/20/2024 11:18 AM EST Narrative [employer] [facility] - 11/21/2024 6:52 AM EST FASTING:YES Rey Donaldson MD LAB - BLOOD DRAW Final Result [facility] [address] [address], [employer] [address] [address] * (ABNORMAL) LIPID PANEL (11/20/2024 11:17 AM EST) CHOLESTEROL, TOTAL 244(H) <200 mg/dL [facility] HDL CHOLESTEROL 27(L) > OR = 40 mg/dL [facility] TRIGLYCERIDES 112 <150 mg/dL [facility] LDL-CHOLESTEROL 193(H) 99 mg/dL (calc) [facility] Comment: LDL-C levels > or = 190 mg/dL may indicate familial hypercholesterolemia (FH). Clinical assessment and measurement of blood lipid levels should be considered for all first degree relatives of patients with an FH diagnosis. LDL Cholesterol (LDL-C) levels > or = 300 mg/dL may indicate homozygous familial hypercholesterolemia (HoFH). Untreated, these extremely high LDL-C levels can result in premature CV events and mortality. Patients should be identified early and provided appropriate interventions to reduce the cumulative LDL-C burden from . For questions about testing for familial hypercholesterolemia, please call [employer] [facility] at [phone]. Beckie Bull, et al. J National Lipid Association Recommendations for Patient-Centered Management of Dyslipidemia: Part 1 Journal of Clinical Lipidology 2015;9(2), 129-169. Markus Ching et al. (2014). Homozygous familial hypercholesterolaemia: new insights and guidance for clinicians to improve detection and clinical management. Heart Journal, 35(32), 3760-0259. Reference range: <100 Desirable range <100 mg/dL for primary prevention; ?? <70 mg/dL for patients with CHD or diabetic patients with > or = 2 CHD risk factors. LDL-C is now calculated using the Ney-Susan calculation, which is a validated novel method providing better accuracy than the Friedewald equation in the estimation of LDL-C. Ney SS et al. DIANE. 2013;310(19): 0127-5817 (http://education.[employer]/faq/EUA776) CHOL/HDLC RATIO 9.0(H) <5.0 (calc) [facility] NON-HDL CHOLESTEROL 217(H) <130 mg/dL (calc) [facility] Comment: For patients with diabetes plus 1 major ASCVD risk factor, treating to a non-HDL-C goal of <100 mg/dL (LDL-C of <70 mg/dL) is considered a therapeutic option. Blood Blood / Unknown 11/20/2024 1 1:17 AM EST 11/20/2024 11:18 AM EST Narrative [facility] - 11/21/2024 6:52 AM EST FASTING:YES us Rey Donaldson MD LAB - BLOOD DRAW Final Result [facility] [address] [place] [address], [facility] [address] [place] [phone] * (ABNORMAL) COMPREHENSIVE METABOLIC PANEL (11/20/2024 11:17 AM EST) GLUCOSE 94 65 - 99 mg/dL [facility] Comment: ?Fasting reference interval UREA NITROGEN (BUN) 11 7 - 25 mg/dL [facility] CREATININE (blood) 0.98 0.60 - 1.24 mg/dL [facility] EGFR 108 > OR = 60 mL/min/1. 73m2 [facility] BUN/CREATININE RATIO SEE NOTE: [facility] Comment: ?? Not Reported: BUN and Creatinine are within ?? reference range. ? SODIUM 140 135 - 146 mmol/L [facility] POTASSIUM 4.1 3.5 - 5.3 mmol/L [facility] CHLORIDE 103 98 - 110 mmol/L [facility] CARBON DIOXIDE 31 20 - 32 mmol/L [facility] CALCIUM 9.3 8.6 - 10.3 mg/dL [facility] PROTEIN, TOTAL 7.3 6.1 - 8.1 g/dL [facility] ALBUMIN 4.4 3.6 - 5.1 g/dL [facility] GLOBULIN 2.9 1.9 - 3.7 g/dL (calc) [facility] ALBUMIN/GLOBULI N RATIO 1.5 1.0 - 2.5 (calc) [facility] BILIRUBIN, TOTAL 0.5 0.2 - 1.2 mg/dL [facility] ALKALINE PHOSPHATASE 85 36 - 130 U/L [facility] AST 26 10 - 40 U/L [facility] ALT 48(H) 9 - 46 U/L [facility] Blood Blood / Unknown 11/20/2024 1 1:17 AM EST 11/20/2024 11:18 AM EST Narrative [employer] [facility] - 11/21/2024 6:52 AM EST FASTING:YES us Rye Donaldson MD LAB - BLOOD DRAW Edited Result - Final [employer] [facility] [address] [address], [facility] [address] [place] [address] * HEPATITIS C AB W/RFLX HCV RNA, QT, RT PCR (08/18/2023 1:04 PM EDT) HEPATITIS C ANTIBODY NON-REACT JHONATHAN NON-REACT JHONATHAN [facility] Comment: HCV antibody was non-reactive. There is no laboratory evidence of HCV infection. In most cases, no further action is required. However, if recent HCV exposure is suspected, a test for HCV RNA (test code 88365) is suggested. For additional information please refer to http://[employer]/faq/ULC14e5 (This link is being provided for informational/ educational purposes only.) Blood Blood / Unknown 08/18/2023 1 :04 PM EDT 08/18/2023 1:05 PM EDT Rey Donaldson MD LAB - BLOOD DRAW Final Result [facility] [address] [address], [facility] [address] [address] * HIV 1/2 AG & AB W/RFLX (4TH GEN) (09/08/2022 9:48 AM EDT) HIV AG/AB, 4TH GEN NON-REAC TIVE NON-REAC TIVE [facility] Comment: HIV-1 antigen and HIV-1/HIV-2 antibodies were not detected. There is no laboratory evidence of HIV infection. PLEASE NOTE: This information has been disclosed to you from records whose confidentiality may be protected by state law. ??If your state requires such protection, then the state law prohibits you from making any further disclosure of the information without the specific written consent of the person to whom it pertains, or as otherwise permitted by law. A general authorization for the release of medical or other information is NOT sufficient for this purpose. ?? For additional information please refer to http://[employer]/faq/EFX636 (This link is being provided for informational/ educational purposes only.) The performance of this assay has not been clinically validated in patients less than 2 years old. Blood Blood / Unknown 09/08/2022 9 :48 AM EDT 09/08/2022 9:48 AM EDT Rey Donaldson MD LAB - BLOOD DRAW Final Result [facility] [address] [facility] [address] [place] [address], [place] [facility] [place] [facility] [address] [address] from Last 3 Months or Most Recently Relevant to Health Maintenance Insurance [place] - [place] Care Teams Director Of Restaurant Relationship Specialty Start Date End Date Rey Donaldson MD [address] [place] [address] PCP - General Internal Medicine 09/04/22
--- OUTSIDE RECORDS SUMMARY | 2025-01-04 14:26 | XMS_ITS | Encounter Summary ---
Author Organization [facility] Address [address] [place] [address] Care Team Providers Care School Guard Name Role Phone Rey Donaldson MD Primary Care Provider Reason for Visit * Reason Comments Follow Up Encounter Details Date Type Department Care Team ([facility] st Contact Info) Description 12/15/2024 1:40 PM EST Office Visit [facility] [address] [place] [address] Rey Donaldson MD [address] [place] [address]. [place] [address] Elevated LDL cholesterol level (Primary Dx); Prediabetes; Encounter for drug screening; Immunization due; Health care maintenance Social History Tobacco Use Types Packs/Day Years [...] Orientation Straight 09/04/2022 1: 00 PM PDT documented as of this encounter Last Filed Vital Signs Vital Sign Reading [...] Mass Index 47.85 12/15/2024 1:18 PM EST documented in this encounter Progress Notes * Rey Donaldson MD - 12/15/2024 1:26 PM EST Images from the original note were not included. HPI: James Terry is a 29 year old male Rt visit Elevated ldl - started Lipitor 20 mg 11/21/24 Advice pt low cholesterol/fat food and exercise . 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 Wants vaccine Problem List: Patient Active Problem List Diagnosis Anxiety and depression Class 2 obesity due to excess calories without serious comorbidity with body mass index (BMI) of 39.0 to 39.9 in adult Elevated LDL cholesterol level Prediabetes Medications: Current Outpatient Medications Medication Sig Dispense Refill atorvastatin (LIPITOR) 20 mg tablet Take 1 Tablet by mouth nightly at bedtime 90 Tablet 1 FLUoxetine (PROZAC) 20 mg capsule Take 20 mg by mouth every morning lithium carbonate 600 mg capsule Take 600 mg by mouth 2 (two) times daily OLANZapine (ZYPREXA) 20 mg tablet Take 20 mg by mouth nightly at bedtime traZODone (DESYREL) 50 mg tablet Take 50 mg by mouth nightly at bedtime No current facility-administered medications for this visit. No Known Allergies ROS: Review of Systems Constitutional: Negative for fever and weight loss. HEENT: Negative for neck pain. Cardiovascular: Negative for chest pain, palpitations, leg swelling and PND. RS: Air entry bilaterally is equal. No rhonchi or crackles Gastrointestinal: Negative for nausea, vomiting and abdominal pain. Musculoskeletal: Negative for back pain. Skin: Negative for rash. Neurological: Negative for dizziness, tingling and headaches. Vitals: 12/15/24 1318 BP: 120/80 Pulse: 96 Resp: 16 Temp: 97.7 ??F (36.5 ??C) TempSrc: Forehead SpO2: 98% Weight: (!) 324 lb (147 kg) Height: 5' 9 (1.753 m) Last 3 BP Readings: Date: BP: 12/15/2024 120/80 05/25/2024 110/78 09/21/2023 115/76 No data to display Body mass index is 47.85 kg/m??. Recent Labs: Office Visit on 05/25/2024 Component Date Value Ref Range Status WHITE BLOOD CELL COUNT 11/20/2024 8.7 3.8 - 10.8 Thousand/uL Final RED BLOOD CELL COUNT 11/20/2024 5.46 4.20 - 5.80 Million/uL Final HEMOGLOBIN 11/20/2024 15.7 13.2 - 17.1 g/dL Final HEMATOCRIT 11/20/2024 49.8 38.5 - 50.0 % Final MCV 11/20/2024 91.2 80.0 - 100.0 fL Final MCH 11/20/2024 28.8 27.0 - 33.0 pg Final MCHC 11/20/2024 31.5 (L) 32.0 - 36.0 g/dL Final Comment: For adults, a slight decrease in the calculated MCHC value (in the range of 30 to 32 g/dL) is most likely not clinically significant; however, it should be interpreted with caution in correlation with other red cell parameters and the patient's clinical condition. RDW 11/20/2024 12.3 11.0 - 15.0 % Final PLATELET COUNT 11/20/2024 313 140 - 400 Thousand/uL Final MPV 11/20/2024 11.5 7.5 - 12.5 fL Final ABSOLUTE NEUTROPHILS 11/20/2024 4,950 1,500 - 7,800 cells/uL Final ABSOLUTE LYMPHOCYTES 11/20/2024 2,949 850 - 3,900 cells/uL Final ABSOLUTE MONOCYTES 11/20/2024 609 200 - 950 cells/uL Final ABSOLUTE EOSINOPHILS 11/20/2024 174 15 - 500 cells/uL Final ABSOLUTE BASOPHILS 11/20/2024 17 0 - 200 cells/uL Final NEUTROPHILS PCT 11/20/2024 56.9 % Final LYMPHOCYTES 11/20/2024 33.9 % Final MONOCYTES 11/20/2024 7.0 % Final EOSINOPHILS 11/20/2024 2.0 % Final BASOPHILS 11/20/2024 0.2 % Final GLUCOSE 11/20/2024 94 65 - 99 mg/dL Final Comment: Fasting reference interval UREA NITROGEN (BUN) 11/20/2024 11 7 - 25 mg/dL Final CREATININE (blood) 11/20/2024 0.98 0.60 - 1.24 mg/dL Final EGFR 11/20/2024 108 > OR = 60 mL/min/1.73m2 Final BUN/CREATININE RATIO 11/20/2024 SEE NOTE: Final Comment: Not Reported: BUN and Creatinine are within reference range. SODIUM 11/20/2024 140 135 - 146 mmol/L Final POTASSIUM 11/20/2024 4.1 3.5 - 5.3 mmol/L Final CHLORIDE 11/20/2024 103 98 - 110 mmol/L Final CARBON DIOXIDE 11/20/2024 31 20 - 32 mmol/L Final CALCIUM 11/20/2024 9.3 8.6 - 10.3 mg/dL Final PROTEIN, TOTAL 11/20/2024 7.3 6.1 - 8.1 g/dL Final ALBUMIN 11/20/2024 4.4 3.6 - 5.1 g/dL Final GLOBULIN 11/20/2024 2.9 1.9 - 3.7 g/dL (calc) Final ALBUMIN/GLOBULIN RATIO 11/20/2024 1.5 1.0 - 2.5 (calc) Final BILIRUBIN, TOTAL 11/20/2024 0.5 0.2 - 1.2 mg/dL Final ALKALINE PHOSPHATASE 11/20/2024 85 36 - 130 U/L Final AST 11/20/2024 26 10 - 40 U/L Final ALT 11/20/2024 48 (H) 9 - 46 U/L Final TSH 11/20/2024 0.97 0.40 - 4.50 mIU/L Final CHOLESTEROL, TOTAL 11/20/2024 244 (H) <200 mg/dL Final HDL CHOLESTEROL 11/20/2024 27 (L) > OR = 40 mg/dL Final TRIGLYCERIDES 11/20/2024 112 <150 mg/dL Final LDL-CHOLESTEROL 11/20/2024 193 (H) 99 mg/dL (calc) Final Comment: LDL-C levels > or = 190 [...] about testing for familial hypercholesterolemia, please call [employer] at [email or web address]. Beckie Bull, et al. J National Lipid Association Recommendations for Patient-Centered Management of Dyslipidemia: Part 1 Journal of Clinical Lipidology 2015;9(2), 129-169. Neel Ching. et al. (2014). Homozygous familial hypercholesterolaemia: new insights and guidance for clinicians to impro ve detection and clinical management. Heart Journal, 35(32), 5127-3497. Reference range: <100 Desirable range <100 mg/dL for primary prevention; <70 mg/dL for patients with CHD or diabetic patients with > or = 2 CHD risk factors. LDL-C is now calculated using the Ney-Susan calculation, which is a validated novel method providing better accuracy than the Friedewald equation in the estimation of LDL-C. Ney ALMEIDA et al. DIANE. 2013;310(19): 9064-0595 (http://education.[employer]/faq/AVW710) CHOL/HDLC RATIO 11/20/2024 9.0 (H) <5.0 (calc) Final NON-HDL CHOLESTEROL 11/20/2024 217 (H) <130 mg/dL (calc) Final Comment: For patients with diabetes plus 1 major ASCVD risk factor, treating to a non-HDL-C goal of <100 mg/dL (LDL-C of <70 mg/dL) is considered a therapeutic option. HEMOGLOBIN A1C 11/20/2024 5.7 (H) <5.7 % of total Hgb Final Comment: For someone without known diabetes, a [...] A1c for diagnosis of diabetes for children. Lab Results Component Value Date TRIGLYC 112 11/20/2024 CHOL 244 (H) 11/20/2024 HDL 27 (L) 11/20/2024 LDL 193 (H) 11/20/2024 CHOLHDL 9.0 (H) 11/20/2024 NONHDL 217 (H) 11/20/2024 Lab Results Component Value Date HGBA1C 5.7 (H) 11/20/2024 HGBA1C 5.3 02/08/2023 HGBA1C 5.2 09/08/2022 Depression Screening 12/15/2024 1:22 PM Little interest or pleasure in doing things Not at all Feeling down, depressed or hopeless [include irritable if under 18] Not at all Trouble falling or staying asleep, or sleeping too much Not at all Feeling tired or having little energy Not at all Poor appetite or overeating Not at all Feeling bad about yourself - or that you are a failure or have let yourself or your family down Notat all Trouble concentrating on things like school work, reading or watching TV? Not at all Moving or speaking so slowly that other people could have noticed? Or the opposite - being so fidgety or restless that you have been moving around a lot more than usual Not at all Thoughts you would be better off or of hurting yourself in some way Not at all If you checked off any problems, how difficult have these problems made it for you to do your work,take care of things at home, or get along with other people? Not difficult at all PHQ-9 Total Score (Auto Calculated) 0 Depression Severity: None-minimal PHQ-9 Total Score (Auto Calculated) 0 at 12/15/2024 1:22 PM 12/15/2024 1:22 PM How many times in the past year have you had 4 or more drinks in a day? NONE How many times in the past year have you used a recreational drug or used a prescription medicationfor nonmedical reasons? NONE Did patient decline PHQ screening? No Little interest or pleasure in doing things Not at all Feeling down, depressed or hopeless [include irritable if under 18] Not at all PHQ2 Score 0 Little interest or pleasure in doing things Not at all Feeling down, depressed or hopeless [include irritable if under 18] Not at all Trouble falling or staying asleep, or sleeping too much Not at all Feeling tired or having little energy Not at all Poor appetite or overeating Not at all Feeling bad about yourself - or that you are a failure or have let yourself or your family down Notat all Trouble concentrating on things like school work, reading or watching TV? Not at all Moving or speaking so slowly that other people could have noticed? Or the opposite - being so fidgety or restless that you have been moving around a lot more than usual Not at all Thoughts you would be better off or of hurting yourself in some way Not at all If you checked off any problems, how difficult have these problems made it for you to do your work,take care of things at home, or get along with other people? Not difficult at all PHQ-9 Total Score (Auto Calculated) 0 Depression Severity: None-minimal PE: General: NAD HEENT: Nasal Passage is clear. Pharynx is clear. Sinuses are non tender. Right ear and Left ear is normal.. Eyes : HERBIE EOM intact. Eye lids are not swollen, conjunctiva is pink. Neck: ROM is full. No adenopathy CV: RRR, S1S2+, no murmurs Lungs: CTA bilaterally, No wheeze Abd: soft, NT, ND . Bowel sounds are normal Neuro: No focal neuro defecits. Back: ROM is full .SLR is negative. DTR is normal Ext: no cyanosis,clubbing or edema Ankle and Foot : normal exams A/P: E78.00 Elevated LDL cholesterol level (primary encounter diagnosis) Advice pt to pick the lipitor from the pharmacy Refuses to see Nutrionist Counselled for healthy lifestyle, Dietary habits, Physical activity and regular exercise. Discussed Medication adherence. Lifestyle modifications including healthy diet and regular exercisediscussed. Avoid fried foods, oily foods and limit foods rich in calories. Increase fruits and vegetables. Exercise most days of the week for abt 20-30 min. R73.03 Prediabetes Prediabetes is a warning sign that you are at risk for getting type 2 diabetes. It means that your blood sugar is higher than it should be. Foods to avoid if you are prediabetic include sweets (pastries, cookies, cake, candy, pie, doughnuts), refined carbohydrates (white bread, pasta, bagels, crackers, pretzels), sweetened breakfast cereals, flavored yogurt, fried foods, fatty meats, jams, jellies, potato chips, snack bars, and others. Z02.83 Encounter for drug screening Plan : DRUG SCREEN 1 W/CONF, URINE Z23 Immunization due Plan : SARSCOV2 VACCINE 50 MCG/0.5 ML FOR IM USE RIV3 VACCINE PRESERVATIVE FREE FOR IM USE Z00.00 Health care maintenance Plan : SARSCOV2 VACCINE 50 MCG/0.5 ML FOR IM USE RIV3 VACCINE PRESERVATIVE FREE FOR IM USE Rt in 3 months Assessment and plan discussed with patient. Patient agrees with plan. Questions answered. If any new or worsening symptoms / if symptoms does not improve as expected patient may report to ER or call 911. Contingency to seek urgent/emergent care discussed Patient counseled for healthy lifestyle, dietary habits, physical activity and regular exercise. Lifestyle modifications including healthy diet and regular exercise (moderate- intensity aerobic exercises for at least 30 minutes 3-5 times/week) discussed. Discussed healthy heart and DASH diets; written info given to patient. Avoid fried foods, oily foods and limit foods rich in calories, saturated fats. Increase intake of fruits and vegetables. Discussed medication adherence, safe sex, safe driving. Discussed fall precautions. documented in this encounter Miscellaneous Notes * Patient Instructions - Rey Donaldson MD - 12/15/2024 1:30 PM EST If you are not able to keep your appointment please call 24-48 hours before your appointment to cancel or reschedule. documented in this encounter Plan of Treatment Scheduled Orders Name Type Priority Associated Diagnoses Orde r Schedule DRUG SCREEN 1 W/CONF, URINE Lab Routine Encounter for drug screening Ordered: 12/15/2024 documented as of this encounter Procedures Procedure Name Priority Date/Time Associated Diagnosis Comments DRUG MONITORING TEMPLATE Routine 12/15/2024 1:47 PM EST DRUG MONITORING, PANEL 1, SCREEN, URINE Routine 12/15/2024 1:47 PM EST documented in this encounter Results * DRUG MONITORING TEMPLATE (12/15/2024 1:47 PM EST) Notes and Comments See Note Q UEST [facility] Comment: This drug testing is for medical [...] needing Interpretation assistance, please contact us at [phone] ( ) M-F, 8am to 10pm EST 12/15/2024 1:47 PM EST 12/15/2024 1:52 PM EST us Rey Donaldson MD LAB - NO BLOOD DRAW Final Resul t [facility] [address] [address], [place] [address] [place] [id number] * DRUG MONITORING, PANEL 1, SCREEN, URINE (12/15/2024 1:47 PM EST) AMPHETAMINES NEGATIVE <500 [facility] Comment:See Note A BARBITURATES NEGATIVE <300 [facility] Comment:See Note A BENZODIAZEPINES NEGATIVE <100 QUES T [facility] Comment:See Note A COCAINE METABOLITE NEGATIVE <150 Q UEST [facility] Comment:See Note A MARIJUANA METABOLITE NEGATIVE <20 [facility] Comment:See Note A METHADONE NEGATIVE <100 [facility] Comment:See Note A OPIATES NEGATIVE <100 [facility] Comment:See Note A OXYCODONE NEGATIVE <100 [facility] Comment:See Note A PHENCYCLIDINE NEGATIVE <25 [facility] Comment:See Note A CREATININE >350.0 > or = 20.0 mg/dL [facility] Comment: Verified by repeat analysis. PH 6.9 4.5 - 9.0 [facility] OXIDANT NEGATIVE <200 [facility] 12/15/2024 1:47 PM EST 12/15/2024 1:52 PM EST Rey Donaldson MD LAB - NO BLOOD DRAW Final Resul t [facility] [address] [address], [place] [address] [place] [address] documented in this encounter Visit Diagnoses Diagnosis Elevated LDL cholesterol level- Primary Pure hypercholesterolemia Prediabetes Other abnormal glucose Encounter for drug screening Other specified examination Immunization due Need for prophylactic vaccination and inoculation against unspecified single disease Health care maintenance Routine general medical examination at a health care facility documented in this encounter Additional Health Concerns Assessment Noted Time PHQ-9 Depression Total Score: 0 12/15/19 25 1:22 PM PST documented as of this encounter Care Teams School Guard Relationship Specialty Start Date End Date Rey Donaldson MD [address] [place] [address] PCP - General Internal Medicine 09/04/22 documented as of this encounter
== END 2025-01-04 19:51 | disposition left against medical advice (07) ==
PROVIDERS: Emergency Provider Emergency Medicine; PCP Internal Medicine
DX: R05.9 Cough, unspecified (principal); Z11.52 Encounter for screening for COVID-19
CPT/HCPCS: 87635; 99281; 99282

== ENCOUNTER 2025-04-04 11:02 | Outpatient (REF) | payer MEDICARE, MEDICAID, SELFPAY ==
[2025-04-04 11:29] LABS: MANUAL DIFF FLAG NO
[2025-04-04 12:21] LABS: Basophils Percent Auto 0.2 % (0-2); Eosinophils Absolute Auto 0.2 X10*3/uL (0.0-0.4); Eosinophils Percent Auto 2.5 % (0-4); Hematocrit 45.9 % (42.0-52.0); Hemoglobin 15.1 g/dl (14.0-18.0); Imm Gran Abs Auto 0.06 X10*3/uL (0.00-0.03); Imm Gran Pct Auto 0.6 % (0.0-0.4); Lymphocytes Absolute Auto 2.8 X10*3/uL (1.2-4.9); Lymphocytes Percent Auto 29.8 % (20-40); Mean Corpuscular HGB Conc 32.9 g/dl (31.0-36.0); Mean Corpuscular Hemoglobin 29.3 pg (27.0-33.0); Monocytes Absolute Auto 0.7 X10*3/uL (0.1-1.2); Monocytes Percent Auto 7.2 % (2-11); Neutrophils Absolute Auto 5.6 x10*3/uL (2.0-8.3); Neutrophils Percent Auto 59.7 % (45-73); Platelet Count 316 X10*3/uL (160-400); Red Blood Count 5.16 X10*6/uL (4.60-5.80); Red Cell Distribution Width 13.4 % (11.0-16.0); White Blood Count 9.4 X10*3/uL (4.8-10.8)
--- OUTSIDE RECORDS SUMMARY | 2025-04-04 12:26 | XMS_ITS | Clinical Summary ---
Author Organization [facility] Address [address] [place] [address] Care Team Providers Care Kiln Labourer Name Role Phone Rey Donaldson MD Primary Care Provider [phone] Source Comments PLEASE NOTE, if this patient [...] of 39.0 to 39.9 in adult 09/04/2022 Immunizations Immunization Administration Dates Next Due DTAP 06/28/2002, 1,08/12/1998,06/05,04/05/1998 Flu, Preservative Free 08/19/2023,09/04/2022 HEP B, PED/ADOL 08/12/1998,04/05/1998,1997 HPV 9 (Gardasil) 02/08/2023 HPV, QUADRIVALENT 04/22/2023 Hep B,adult,adjuvanted (HEPLISAV) 09/21/2023 Hib (PRP-T) 08/12/1998,06/05/1998,04/05/1998 INFLUENZA, SEASONAL, INJECTABLE 11/20/2015 IPV (IPOL) 06/28/2002,03/08/2001 Influenza (FLUBLOK),recombinant,injectable,prese rvative Free 12/15/2024 MENINGOCOCCAL MCV4P (MENACTRA) 11/20/2015,2008 MMR (MMR II/Priorix) 06/28/2002,11/14/1998 MODERNA COVID-19 VACCINE BIV ALENT, BLUE CAP, 6M+ 09/04/2022 Moderna COVID-19 (Spikevax), Mrna, Lnp-s, Pf, 50 Mcg/0.5 Ml, 12yr+ 12/15/2024 OPV, Trivalent 06/05/1998,04/05/1998 TDAP 02/08/2023,05/15/2009 Varicella (Varivax), Live Vaccine 08/19/2023, Social History Tobacco Use Types Packs/Day Years [...] Additional history exists Lipid Screening 11/20/2025 11/20/2024, 01/14, 09/08/2022 Anxiety Screening 12/15/2025 12/15/2024 Hypertension Screening (#1) 12/15/2025 Tobacco Cessation Counseling (#1) 12/15/2025 024 Imm-DTaP/Tdap/Td (8 - Td or Tdap) 02/08/2033 02/08/2023, 05/15/2009, 06/28/2002, Additional history exists HIV Screening Completed 09/08/2022 Hepatitis C Screening Completed 08/18/2023, 022 Imm-Hepatitis B Completed 09/21/2023, 07/17, 04/05/1998, Additional history exists Alcohol and Drug Screen Completed 12/15/19, 02/08/2023, 09/04/2022 [id number] Completed 12/15/2024, 08/16, 10/10/2021, Additional history exists Imm-Influenza Completed 12/15/2024, 03/2023, 09/04/2022, Additional history exists Imm-Pneumococcal Discontinued Procedures Procedure Name Priority Date/Time Associated Diagnosis Comments COMPREHENSIVE METABOLIC PANEL Routine 11/20/2024 11:17 AM EST Routine general medical examination at a health care facility Mixed hyperlipidemia Anxiety and depression Class 3 severe obesity due to excess calories without serious comorbidity with body mass index (BMI) of 50.0 to 59.9 in adult ([facility]) LIPID PANEL Routine 11/20/2024 11:17 AM EST Routine general medical examination at a health care facility Mixed hyperlipidemia Class 3 severe obesity due to excess calories without serious comorbidity with body mass index (BMI) of 50.0 to 59.9 in adult ([facility]) HEPATITIS C AB W/RFLX HCV RNA, QT, RT PCR Routine 08/18/2023 1:04 PM EDT Elevated liver enzymes Need for hepatitis B screening test Need for hepatitis C screening test HIV 1/2 AG & AB W/RFLX (4TH GEN) Routine 09/08/2022 9:48 AM EDT Health care maintenance from Last 3 Months or Most Recently Relevant to Health Maintenance Results * (ABNORMAL) LIPID PANEL (11/20/2024 11:17 AM EST) CHOLESTEROL, TOTAL 244(H) <200 mg/dL [facility] HDL CHOLESTEROL 27(L) > OR = 40 mg/dL [facility] TRIGLYCERIDES 112 <150 mg/dL [facility] LDL-CHOLESTEROL 193(H) 99 mg/dL (calc) [facility] Comment: LDL-C levels > or = [...] about testing for familial hypercholesterolemia, please call [employer] [facility] at [email or web address]. Beckie Bull, et al. J National Lipid Association Recommendations for Patient-Centered Management of Dyslipidemia: Part 1 Journal of Clinical Lipidology 2015;9(2), 129-169. Neel Ching. et al. (2014). Homozygous familial hypercholesterolaemia: new insights and guidance for clinicians to improve detection and clinical management. Heart Journal, 35(32), 8403-4287. Reference range: <100 Desirable range <100 mg/dL for primary prevention; ?? <70 mg/dL for patients with CHD or diabetic patients with > or = 2 CHD risk factors. LDL-C is now calculated using the Ney-Davis calculation, which is a validated novel method providing better accuracy than the Friedewald equation in the estimation of LDL-C. Ney SS et al. DIANE. 2013;310(19): 3371-9082 (http://education.[employer]/faq/UUP673) CHOL/HDLC RATIO 9.0(H) <5.0 (calc) [employer] NON-HDL CHOLESTEROL 217(H) <130 mg/dL (calc) [employer] Comment: For patients with diabetes plus 1 major ASCVD risk factor, treating to a non-HDL-C goal of <100 mg/dL (LDL-C of <70 mg/dL) is considered a therapeutic option. Blood Blood / Unknown 11/20/2024 1 1:17 AM EST 11/20/2024 11:18 AM EST Narrative [facility] - 11/21/2024 6:52 AM EST FASTING:YES us Rey Donaldson MD LAB - BLOOD DRAW Final Result [facility] [address] [address], [facility] [address] [place] [address] * (ABNORMAL) COMPREHENSIVE METABOLIC PANEL (11/20/2024 11:17 AM EST) GLUCOSE 94 65 - 99 mg/dL [facility] Comment: ?Fasting reference interval UREA NITROGEN (BUN) 11 7 - 25 mg/dL [facility] CREATININE (blood) 0.98 0.60 - 1.24 mg/dL [facility] EGFR 108 > OR = 60 mL/min/1. 73m2 [facility] BUN/CREATININE RATIO SEE NOTE: [facility] Comment: ?? Not Reported: BUN and Creatinine are within ?? reference range. ? SODIUM 140 135 - 146 mmol/L [facility] POTASSIUM 4.1 3.5 - 5.3 mmol/L [facility] CHLORIDE 103 98 - 110 mmol/L [facility] CARBON DIOXIDE 31 20 - 32 mmol/L [facility] CALCIUM 9.3 8.6 - 10.3 mg/dL [facility] PROTEIN, TOTAL 7.3 6.1 - 8.1 g/dL [facility] ALBUMIN 4.4 3.6 - 5.1 g/dL [facility] GLOBULIN 2.9 1.9 - 3.7 g/dL (calc) [facility] ALBUMIN/GLOBULI N RATIO 1.5 1.0 - 2.5 (calc) [facility] BILIRUBIN, TOTAL 0.5 0.2 - 1.2 mg/dL [facility] ALKALINE PHOSPHATASE 85 36 - 130 U/L [facility] AST 26 10 - 40 U/L [facility] ALT 48(H) 9 - 46 U/L [facility] Blood Blood / Unknown 11/20/2024 1 1:17 AM EST 11/20/2024 11:18 AM EST Narrative [facility] - 11/21/2024 6:52 AM EST FASTING:YES Rey Donaldson MD LAB - BLOOD DRAW Edited Result - Final [facility] [address] [address], [facility] [address] [address] * HEPATITIS C AB W/RFLX HCV RNA, QT, RT PCR (08/18/2023 1:04 PM EDT) HEPATITIS C ANTIBODY NON-REACT JHONATHAN NON-REACT JHONATHAN [facility] Comment: HCV antibody was non-reactive. There is no laboratory evidence of HCV infection. In most cases, no further action is required. However, if recent HCV exposure is suspected, a test for HCV RNA (test code 27474) is suggested. For additional information please refer to http://[employer]/faq/VFS00i7 (This link is being provided for informational/ educational purposes only.) Blood Blood / Unknown 08/18/2023 1 :04 PM EDT 08/18/2023 1:05 PM EDT Rey Donaldson MD LAB - BLOOD DRAW Final Result [facility] [address] [address], [facility] [address] [address] * HIV 1/2 AG & AB W/RFLX (4TH GEN) (09/08/2022 9:48 AM EDT) HIV AG/AB, 4TH GEN NON-REAC TIVE NON-REAC TIVE [facility] Comment: HIV-1 antigen and HIV-1/HIV-2 antibodies [...] ?? For additional information please refer to http://[employer]/faq/XIL137 (This link is being provided for informational/ educational purposes only.) The performance of this assay has not been clinically validated in patients less than 2 years old. Blood Blood / Unknown 09/08/2022 9 :48 AM EDT 09/08/2022 9:48 AM EDT Rey Donaldson MD LAB - BLOOD DRAW Final Result [facility] [address] [address], [facility] [address] [address] from Last 3 Months or Most Recently Relevant to Health Maintenance Insurance [place] Care Teams Kiln Labourer Relationship Specialty Start Date End Date Rey Donaldson MD [address] [place] [address] PCP - General Internal Medicine 09/04/22
[2025-04-04 13:18] LABS: Lithium < 0.10 mmol/L (0.60-1.20)
[2025-04-04 15:43] LABS: Alanine Aminotransferase 59 U/L (0-40); Albumin Level 4.5 g/dL (3.5-5.0); Alkaline Phosphatase 96 U/L (39-117); Anion Gap 14 (12-20); Aspartate Amino Transferase 33 U/L (5-37); Bilirubin Total 0.4 mg/dL (0.0-1.0); Blood Urea Nitrogen 11 mg/dL (9-16); Calcium 9.1 mg/dL (8.4-10.2); Carbon Dioxide 25 mmol/L (22-29); Chloride 106 mmol/L (96-108); Cholesterol 226 mg/dL (<200); Estimated Glomerular Filt Rate > 60; Glucose Random 84 mg/dL (60-115); HDL Cholesterol 32 mg/dL (>40); LDL Cholesterol Calculated 169 mg/dL (<100); Potassium 4.2 mmol/L (3.3-5.1); Sodium 141 mmol/L (135-145); Total Protein 7.8 g/dL (6.5-8.0); Triglycerides 126 mg/dL (<150)
== END 2025-04-04 11:03 | disposition home or self-care (01) ==
LOC: HO.LAB 11:02
PROVIDERS: PCP Internal Medicine; Visit Provider Nurse Practitioner Psychiatric/Mental Health
DX: Z79.899 Other long term (current) drug therapy (principal)
CPT/HCPCS: 36415; 80053; 80061; 80178; 84443; 85025

== ENCOUNTER 2025-09-24 13:41 | Outpatient (REF) | payer MEDICARE, MEDICAID, SELFPAY ==
[2025-09-24 13:53] LABS: MANUAL DIFF FLAG NO
[2025-09-24 14:37] LABS: Hematocrit 46.7 % (42.0-52.0); Hemoglobin 15.3 g/dl (14.0-18.0); Imm Gran Abs Auto 0.03 X10*3/uL (0.00-0.03); Imm Gran Pct Auto 0.4 % (0.0-0.4); Lymphocytes Absolute Auto 2.5 X10*3/uL (1.2-4.9); Mean Corpuscular HGB Conc 32.8 g/dl (31.0-36.0); Mean Corpuscular Hemoglobin 29.8 pg (27.0-33.0); Mean Corpuscular Volume 91.0 fL (80.0-98.0); NRBC Abs Auto 0.000 X10*3/uL (0.0-0.012); NRBC Pct Auto 0.0 /100WBC (0.0-0.2); Platelet Count 307 X10*3/uL (160-400); Red Blood Count 5.13 X10*6/uL (4.60-5.80); White Blood Count 8.2 X10*3/uL (4.8-10.8)
[2025-09-24 14:53] LABS: Appearance Urine Clear; Glucose Urine UA Negative (Negative); PH 7.0 (5.0-9.0); Specific Gravity - Urine 1.025 (1.005-1.025)
[2025-09-24 15:32] LABS: Lithium 0.57 mmol/L (0.60-1.20)
--- OUTSIDE RECORDS SUMMARY | 2025-09-24 15:53 | XMS_ITS | Clinical Summary ---
Author Organization [facility] Address [address] [place] [address] Support Name Relationship Address Phone Suma Lakhani Mother [address] [place] [address] Care Team Providers Care Bulk Pallet Builder Name Role Phone Rey Donaldson MD Primary Care Provider [phone] Source Comments PLEASE NOTE, if this patient [...] Take 1 Tablet by mouth nightly at bedtime. 90 Tablet 1 06/19/2025 Active Active Problems Problem Noted Date Diagnosed Date Prediabetes 11/21/2024 Elevated LDL cholesterol level 09/09/2022 Anxiety and depression 09/04/2022 Overview (09/04/2022): Sees Lavinia Simco Class 2 obesity due to exces s calories without serious comorbidity with body mass index (BMI) of 39.0 to 39.9 in adult 09/04/2022 Immunizations Immunization Administration Dates Next Due DTAP (Infanrix) 06/28/2002, 1,08/12/1998,06/05,04/05/1998 Flu, Preservative Free 08/19/2023,09/04/2022 HEP B, PED/ADOL ([id number]-PEDS) 08/12/1998,04/05/1998,1997 HPV 9 (Gardasil) 02/08/2023 HPV, QUADRIVALENT [...] alcohol) socially Social Connections Answer Date Recorded How often do you feel lonely or isolated from th ose around you? 1 06/19/2025 Financial Resource Strain Answer Date R ecorded Hard to pay for: Food 1 06/19/2025 Stress Answer Date Recorded Do you feel these kinds of stress these days? 1 06/19/2025 Physical Activity Answer Date Recorded Physical Activity 0 09/04/2022 Food Insecurity Answer Date Recorded Hard to pay for: Food 1 06/19/2025 Transportation Needs Answer Date Record ed Hard to pay for: Transportation 1 06/19/2025 Housing Stability Answer Date Recorded Think about the place you li ve. Do you have problems with any of the following? (Check all that apply) 2 06/19/2025 Safety and Environment Answer Date Isael rded Safety 0 09/04/2022 Utilities Answer Date Recorded Hard to pay for: Utilities 1 06/19 Employment Answer Date Recorded Stress 0 07/29/2024 [...] 96 12/15/2024 1:18 PM EST Temperature 36.5 C (97.7 F) 12/15/2024 1:18 PM EST Respiratory Rate 16 12/15/2024 1:18 PM EST Oxygen Saturation 98% 12/15/2024 1:18 PM EST Inhaled Oxygen Concentration - - Weight 147 kg (324 lb) 12/15/2024 1:18 PM EST Height 175.3 cm (5' 9 ) 12/15/2024 1:18 PM EST Body Mass Index 47.85 12/15/2024 1:18 PM EST Plan of Treatment Health Maintenance Due Date Last Done Comments Medicare Annual Wellness Visit 2015 Imm-HPV (3 - Male 3-dose series) 08/11/2023 04/22/20, 02/08/2023 [id number] (5 - season) 2025 12/15/2024, 09/04/2022, 10/10/2021, Additional history exists Imm-Influenza (#1) 2025 12/15/2024, 1 , 09/04/2022, Additional history exists Depression Monitoring 09/19/2025 06/19/2025 , 12/15/2024, 05/25/2024, Additional history exists Diabetes Screening 11/20/2025 11/20/2024, 0 11/20/2024, 02/08/2023, Additional history exists Lipid Screening 11/20/2025 11/20/2024, 01/14, 09/08/2022 Hypertension Screening (#1) 12/15/2025 Tobacco Cessation Counseling (#1) 12/15/2025 024 Anxiety Screening 06/19/2026 06/19/2025 Imm-DTaP/Tdap/Td (8 - Td or Tdap) 02/08/2033 02/08/2023, 05/15/2009, 06/28/2002, Additional history exists HIV Screening Completed 09/08/2022 Hepatitis C Screening Completed 08/18/2023, 022 Imm-Hepatitis B Completed 09/21/2023, 07/17, 04/05/1998, Additional history exists Alcohol and Drug Screen Completed 12/15/19, 02/08/2023, 09/04/2022 Imm-Pneumococcal Discontinued Procedures Procedure Name Priority Date/Time Associated Diagnosis Comments COMPREHENSIVE METABOLIC PANEL Routine 11/20/2024 11:17 AM EST Routine general medical examination at a health care facility Mixed hyperlipidemia Anxiety and depression Class 3 severe obesity due to excess calories without serious comorbidity with body mass index (BMI) of 50.0 to 59.9 in adult ([facility]) LIPID PANEL Routine 11/20/2024 11:17 AM EST Routine general medical examination at a health care facility Mixed hyperlipidemia Class 3 severe obesity due to excess calories without serious comorbidity with body mass index (BMI) of 50.0 to 59.9 in adult ([facility]) HEPATITIS C AB W/RFLX HCV RNA, QT, [...] AM EST) CHOLESTEROL, TOTAL 244(H) <200 mg/dL [facility] HDL CHOLESTEROL 27(L) > OR = 40 mg/dL [facility] TRIGLYCERIDES 112 <150 mg/dL [facility] LDL-CHOLESTEROL 193(H) 99 mg/dL (calc) [facility] Comment: LDL-C levels > or = 190 [...] about testing for familial hypercholesterolemia, please call Compliance 11 Client Services at [phone]. Beckie T, et al. J National Lipid Association Recommendations for Patient-Centered Management of Dyslipidemia: Part 1 Journal of Clinical Lipidology 2015;9(2), 129-169. Neel Ching. et al. (2014). Homozygous familial hypercholesterolaemia: new insights and guidance for clinicians to improve detection and clinical management. Heart Journal, 35(32), 8047-9105. Reference range: <100 Desirable range <100 mg/dL for primary prevention; <70 mg/dL for patients with CHD or diabetic patients with > or = 2 CHD risk factors. LDL-C is now calculated using the Ney-Susan calculation, which is a validated novel method providing better accuracy than the Friedewald equation in the estimation of LDL-C. Ney ALMEIDA et al. DIANE. 2013;310(19): 6965-9990 (http://education.[employer]/faq/RZO474) CHOL/HDLC RATIO 9.0(H) <5.0 (calc) [facility] NON-HDL CHOLESTEROL 217(H) <130 mg/dL (calc) [facility] Comment: For patients with diabetes plus 1 major ASCVD risk factor, treating to a non-HDL-C goal of <100 mg/dL (LDL-C of <70 mg/dL) is considered a therapeutic option. Blood Blood / Unknown 11/20/2024 1 1:17 AM EST 11/20/2024 11:18 AM EST Narrative [facility] - 11/21/2024 6:52 AM EST FASTING:YES Rey Donaldson MD LAB - BLOOD DRAW Final Result [facility] [address] [address], [facility] [address] [place] [address] * (ABNORMAL) COMPREHENSIVE METABOLIC PANEL (11/20/2024 11:17 AM EST) GLUCOSE 94 65 - 99 mg/dL [facility] Comment: Fasting reference interval UREA NITROGEN (BUN) 11 7 - 25 mg/dL [facility] CREATININE (blood) 0.98 0.60 - 1.24 mg/dL [facility] EGFR 108 > OR = 60 mL/min/1. 73m2 [facility] BUN/CREATININE RATIO SEE NOTE: [facility] Comment: Not Reported: BUN and Creatinine are within reference range. SODIUM 140 135 - 146 mmol/L [facility] POTASSIUM 4.1 3.5 - 5.3 mmol/L [facility] CHLORIDE 103 98 - 110 mmol/L [facility] CARBON DIOXIDE 31 20 - 32 mmol/L [facility] CALCIUM 9.3 8.6 - 10.3 mg/dL [facility] PROTEIN, TOTAL 7.3 6.1 - 8.1 g/dL [facility] ALBUMIN 4.4 3.6 - 5.1 g/dL [facility] GLOBULIN 2.9 1.9 - 3.7 g/dL (calc) [facility] ALBUMIN/GLOBULI N RATIO 1.5 1.0 - 2.5 (calc) [facility] BILIRUBIN, TOTAL 0.5 0.2 - 1.2 mg/dL [facility] ALKALINE PHOSPHATASE 85 36 - 130 U/L [facility] AST 26 10 - 40 U/L [facility] ALT 48(H) 9 - 46 U/L [facility] Blood Blood / Unknown 11/20/2024 1 1:17 AM EST 11/20/2024 11:18 AM EST Narrative [facility] - 11/21/2024 6:52 AM EST FASTING:YES Rey Donaldson MD LAB - BLOOD DRAW Edited Result - Final Performing Organization Address [facility] Co de Phone Number [facility] [address] [address], [employer] [address] [address] * HEPATITIS C AB W/RFLX HCV RNA, QT, RT PCR (08/18/2023 1:04 PM EDT) Pathologist [facility] HEPATITIS C ANTIBODY NON-REACT JHONATHAN NON-REACT JHONATHAN [facility] Comment: HCV antibody was non-reactive. There is no laboratory evidence of HCV infection. In most cases, no further action is required. However, if recent HCV exposure is suspected, a test for HCV RNA (test code 45629) is suggested. For additional information please refer to http://education.[employer]/faq/PAW91c8 (This link is being provided for informational/ educational purposes only.) Blood Blood / Unknown 08/18/2023 1 :04 PM EDT 08/18/2023 1:05 PM EDT Rey Donaldson MD LAB - BLOOD DRAW Final Result Performing Organization Address [facility] de Phone Number [facility] [address] [address], [employer] [address] [address] * HIV 1/2 AG & AB W/RFLX (4TH GEN) (09/08/2022 9:48 AM EDT) Pathologist [facility] HIV AG/AB, 4TH GEN NON-REAC TIVE NON-REAC TIVE [facility] Comment: HIV-1 antigen and HIV-1/HIV-2 antibodies were not detected. There is no laboratory evidence of HIV infection. PLEASE NOTE: This information has been disclosed to you from records whose confidentiality may be protected by state law. If your state requires such protection, then the state law prohibits you from making any further disclosure of the information without the specific written consent of the person to whom it pertains, or as otherwise permitted by law. A general authorization for the release of medical or other information is NOT sufficient for this purpose. For additional information please refer to http://education.[employer]/faq/TBU361 (This link is being provided for informational/ educational purposes only.) The performance of this assay has not been clinically validated in patients less than 2 years old. Blood Blood / Unknown 09/08/2022 9 :48 AM EDT 09/08/2022 9:48 AM EDT Rey Donaldson MD LAB - BLOOD DRAW Final Result [facility] [address] [address], [facility] [address] [address] from Last 3 Months or Most Recently Relevant to Health Maintenance [place] Care Teams Bulk Pallet Builder Relationship Specialty Start Date End Date Rey Donaldson MD [address] [place] [address] PCP - General Internal Medicine 09/04/22
[2025-09-24 16:41] LABS: Alanine Aminotransferase 47 U/L (0-40); Albumin Level 4.7 g/dL (3.5-5.0); Alkaline Phosphatase 83 U/L (39-117); Anion Gap 15 (12-20); Aspartate Amino Transferase 34 U/L (5-37); Blood Urea Nitrogen 13 mg/dL (9-16); Calcium 9.5 mg/dL (8.4-10.2); Carbon Dioxide 23 mmol/L (22-29); Chloride 106 mmol/L (96-108); Cholesterol 232 mg/dL (<200); Estimated Glomerular Filt Rate > 60; HDL Cholesterol 33 mg/dL (>40); Potassium 4.0 mmol/L (3.3-5.1); Sodium 140 mmol/L (135-145); Thyroid Stimulating Hormone 1.61 uIU/mL (0.32-4.0); Total Protein 7.9 g/dL (6.5-8.0); Triglycerides 140 mg/dL (<150)
== END 2025-09-24 13:42 | disposition home or self-care (01) ==
LOC: HO.LAB 13:41
PROVIDERS: PCP Internal Medicine; Visit Provider Nurse Practitioner Psychiatric/Mental Health
DX: Z79.899 Other long term (current) drug therapy (principal)
CPT/HCPCS: 36415; 80053; 80061; 80178; 81003; 84443; 85025